=== PATIENT | female | born 1935 | race Caucasian/White ===

== ENCOUNTER 2017-05-11 08:39 | Inpatient (IN) | payer MEDICARE, MEDICAID ==
[2017-05-11] MEDS: SOD CHLORIDE 0.9% 1,000 ML IV ×2 (09:07→10:48)
[2017-05-11] MEDS: ACETAMINOPHEN 650 MG SUPP PR (09:30)
[2017-05-11 10:19] LABS: ADD MAN DIFF? NO
[2017-05-11 10:21] LABS: ABNORMAL IP MESSAGE 1; BASOPHIL # 0.1 10^3/ul (0.0-0.1); BASOPHILS % 0.6 % (0.0-2.0); EOSINOPHILS # 0.5 10^3/ul (0.0-0.5); EOSINOPHILS % 2.7 % (0.0-7.0); HEMATOCRIT 28.7 % (37.0-47.0); HEMOGLOBIN 9.1 g/dl (12.0-16.0); LYMPHOCYTES # 5.7 10^3/ul (0.8-2.9); LYMPHOCYTES % 28.4 % (15.0-51.0); MEAN CORPUSCULAR HEMOGLOBIN 29.1 pg (29.0-33.0); MEAN CORPUSCULAR HGB CONC 31.7 g/dl (32.0-37.0); MEAN CORPUSCULAR VOLUME 91.7 fl (82.0-101.0); MEAN PLATELET VOLUME 10.9 fl (7.4-10.4); MONOCYTE # 1.5 10^3/ul (0.3-0.9); MONOCYTES % 7.6 % (0.0-11.0); PLATELET COUNT 209 10^3/UL (140-415); RED BLOOD COUNT 3.13 10^6/ul (4.20-5.40); RED CELL DISTRIBUTION WIDTH 14.5 % (11.5-14.5)
[2017-05-11 10:28] LABS: POSITIVE DIFF @See below
[2017-05-11 10:31] LABS: ADD UMIC YES; UR ASCORBIC ACID 40 mg/dL (NEGATIVE); UR BILIRUBIN (Dip) NEGATIVE (NEGATIVE); UR BLOOD (Dip) NEGATIVE (NEGATIVE); UR CLARITY CLEAR (CLEAR); UR COLOR YELLOW (YELLOW); UR GLUCOSE (Dip) 1+ mg/dL (NEGATIVE); UR KETONES (Dip) NEGATIVE (NEGATIVE); UR LEUKOCYTE ESTERASE (Dip) TRACE Leu/ul (NEGATIVE); UR NITRITE (Dip) NEGATIVE (NEGATIVE); UR RBC 2 /HPF (0-5); UR SPECIFIC GRAVITY (Dip) 1.015 (1.003-1.030); UR TOTAL PROTEIN (Dip) 1+ mg/dl (NEGATIVE); UR UROBILINOGEN (Dip) NEGATIVE (NEGATIVE); UR WBC 4 /HPF (0-5)
[2017-05-11 10:44] LABS: ALANINE AMINOTRANSFERASE 36 IU/L (13-69); ALBUMIN 3.2 g/dl (3.3-4.9); ALKALINE PHOSPHATASE 106 IU/L (42-121); ANION GAP 14 (8-16); ASPARTATE AMINO TRANSFERASE 41 IU/L (15-46); BILIRUBIN,INDIRECT 0.1 mg/dl (0-1.1); BILIRUBIN,TOTAL 0.1 mg/dl (0.2-1.3); BLOOD UREA NITROGEN 43 mg/dl (7-20); CARBON DIOXIDE 32 mmol/L (21-31); CHLORIDE 106 mmol/L (97-110); CREATININE 0.62 mg/dl (0.44-1.00); GLUCOSE 278 mg/dl (70-220); POTASSIUM 4.8 mmol/L (3.5-5.1); SODIUM 147 mmol/L (135-144); TOTAL PROTEIN 7.2 g/dl (6.1-8.1)
[2017-05-11 10:46] LABS: INR 1.24; PROTIME 15.8 Sec (11.9-14.9); PT RATIO 1.2
[2017-05-11 10:48] LABS: LACTIC ACID 1.3 mmol/L (0.5-2.0)
[2017-05-11] MEDS: VANCOMYCIN 1 GM (PMX) 250 ML IVPB (10:48)
[2017-05-11 10:51] LABS: PARTIAL THROMBOPLASTIN TIME 28.9 Sec (25.0-35.0)
[2017-05-11] MEDS ORDERED: ONDANSETRON 4 MG INJ IV ×2 (11:30→12:00)
[2017-05-11] MEDS ORDERED: ACETAMINOPHEN 325 MG TAB PO (11:30)
[2017-05-11] MEDS: SOD CHLORIDE 0.45% 1,000 ML IV ×2 (11:57→16:02)
[2017-05-11] MEDS ORDERED: ZOLPIDEM 5 MG TAB PO (12:00)
[2017-05-11] MEDS ORDERED: NACL 0.9% 3 ML SYG IV (12:00)
[2017-05-11] MEDS ORDERED: MAGNESIUM HYDROXIDE 30ML CUP PEG (12:30)
[2017-05-11] MEDS: AZTREONAM 1 GM/NS (PMX) 50 ML IVPB (13:00)
[2017-05-11 13:12] LABS: LACTIC ACID 1.6 mmol/L (0.5-2.0)
[2017-05-11] MEDS ORDERED: GLUCOSE GEL 15 GRAM TUBE BUCCAL (13:30)
[2017-05-11] MEDS ORDERED: GLUCAGON 1 MG INJ IM (13:30)
[2017-05-11] MEDS ORDERED: GLUCOSE GEL 15 GRAM TUBE PO ×2 (13:30)
[2017-05-11] MEDS ORDERED: VANCOMYCIN IV PER PHARMACY XX (13:30)
[2017-05-11] MEDS ORDERED: DEXTROSE 50% 50 ML SYRINGE IV ×2 (13:30)
[2017-05-11] MEDS: TIGECYCLINE 100 MG in DEXTROSE 5% 100 ML IVPB ×2 (14:00→15:45)
[2017-05-11] MEDS: AMLODIPINE 5 MG TAB PEG (16:00)
[2017-05-11 16:19] LABS: LACTIC ACID 1.4 mmol/L (0.5-2.0)
[2017-05-11] MEDS: CLOTRIMAZOLE 1% 30 GM CR TOP (17:24)
[2017-05-11] MEDS: INSULIN ASPART [NOVOLOG] 3 ML PEN SC (18:02)
[2017-05-11] MEDS: MONTELUKAST 10 MG TAB PEG (21:09)
[2017-05-11] MEDS: BUSPIRONE 5 MG TAB GTB (21:09)
[2017-05-11] MEDS: APIXABAN 5 MG TABLET GTB (21:10)
[2017-05-11] MEDS: L ACIDOPHIL/B LACTIS/B LONGUM CAPSULE PEG (21:10)
[2017-05-11] MEDS ORDERED: TIGECYCLINE 50 MG in DEXTROSE 5% 100 ML IVPB (23:00)
[2017-05-11] MEDS: METHADONE 10 MG TAB PEG (23:54)
[2017-05-12] MEDS: INSULIN ASPART [NOVOLOG] 3 ML PEN SC ×4 (01:30→17:37)
[2017-05-12] MEDS: TIGECYCLINE 50 MG in DEXTROSE 5% 100 ML IVPB ×2 (01:40→08:45)
[2017-05-12] MEDS: ACCU-CHEK XX (02:00)
[2017-05-12] MEDS: SOD CHLORIDE 0.45% 1,000 ML IV ×3 (05:58→20:28)
[2017-05-12 06:12] LABS: ABNORMAL IP MESSAGE 1; HEMATOCRIT 28.2 % (37.0-47.0); HEMOGLOBIN 8.9 g/dl (12.0-16.0); MEAN CORPUSCULAR HEMOGLOBIN 28.7 pg (29.0-33.0); MEAN CORPUSCULAR HGB CONC 31.6 g/dl (32.0-37.0); MEAN PLATELET VOLUME 10.5 fl (7.4-10.4); PLATELET COUNT 221 10^3/UL (140-415); RED CELL DISTRIBUTION WIDTH 14.2 % (11.5-14.5)
[2017-05-12 06:12] LABS: WHITE BLOOD COUNT 18.2 10^3/ul (4.8-10.8)
[2017-05-12 06:22] LABS: ADD MAN DIFF? YES; POSITIVE DIFF @See below
[2017-05-12] MEDS ORDERED: PENDING SANTYL ORDER FOR WOUND CARE XX (06:30)
[2017-05-12 06:36] LABS: ALANINE AMINOTRANSFERASE 36 IU/L (13-69); ALBUMIN 2.8 g/dl (3.3-4.9); ALKALINE PHOSPHATASE 89 IU/L (42-121); ANION GAP 12 (8-16); ASPARTATE AMINO TRANSFERASE 37 IU/L (15-46); BILIRUBIN,INDIRECT 0.3 mg/dl (0-1.1); BILIRUBIN,TOTAL 0.3 mg/dl (0.2-1.3); BLOOD UREA NITROGEN 32 mg/dl (7-20); CALCIUM 8.6 mg/dl (8.4-10.2); CARBON DIOXIDE 28 mmol/L (21-31); CHLORIDE 109 mmol/L (97-110); CREATININE 0.51 mg/dl (0.44-1.00); GLUCOSE 212 mg/dl (70-220); POTASSIUM 3.9 mmol/L (3.5-5.1); SODIUM 145 mmol/L (135-144); TOTAL PROTEIN 6.8 g/dl (6.1-8.1)
[2017-05-12 06:41] LABS: C-REACTIVE PROTEIN 2.7 mg/dl (0.0-0.9)
[2017-05-12 07:16] LABS: ANISOCYTOSIS 1+ (0-0); BAND NEUTROPHILS #M 0.3 10^3/ul (0.0-0.6); BAND NEUTROPHILS % (M) 2 % (0-4); BASOPHIL #M 0.7 10^3/ul (0.0-0.0); BASOPHILS % (M) 4 % (0-2); EOSINOPHILS % (M) 3 % (0-7); GIANT THROMBO% (M) 1 % (0-0); LYMPHOCYTES % (M) 22 % (15-51); METAMYELOCYTES #M 0.1 10^3/ul (0.0-0.0); METAMYELOCYTES %M 1 % (0-0); MICROCYTOSIS 1+ (0-0); PLATELET ESTIMATE NORMAL; POLYCHROMASIA 1+ (0-0); SEG NEUT #M 12.4 10^3/ul (1.7-7.5); SEGMENTED NEUTROPHILS (M) % 68 % (39-77); SMUDGE%M 5 % (0-0)
[2017-05-12 07:23] LABS: HEMOGLOBIN A1C 7.8 % (0-5.9)
[2017-05-12 08:02] LABS: ERYTHROCYTE SEDIMENTATION RATE 108 mm/Hr (0-30)
[2017-05-12] MEDS: FERROUS SULFATE 60 MG/ML 5ML CUP GTB (08:45)
[2017-05-12] MEDS: ACETAMINOPHEN 650MG/20.3ML CUP PEG (08:45)
[2017-05-12] MEDS: L ACIDOPHIL/B LACTIS/B LONGUM CAPSULE PEG ×2 (08:46→20:32)
[2017-05-12] MEDS: MULTIVITAMINS THERAPEUTIC TAB GTB (08:46)
[2017-05-12] MEDS: APIXABAN 5 MG TABLET GTB ×2 (08:46→20:32)
[2017-05-12] MEDS: BUSPIRONE 5 MG TAB GTB ×2 (08:46→20:32)
[2017-05-12] MEDS: ASCORBIC ACID 500 MG TAB PEG (08:46)
[2017-05-12] MEDS: METHADONE 10 MG TAB PEG (08:47)
[2017-05-12] MEDS: LISINOPRIL 10 MG TAB GTB (08:49)
[2017-05-12] MEDS: AMLODIPINE 5 MG TAB PEG (08:49)
[2017-05-12] MEDS: ALBUTEROL 0.083% (NEB) 2.5 MG/3 ML AMP NEB ×2 (09:18→15:50)
[2017-05-12] MEDS: MEROPENEM 1 GM in SOD CHLORIDE 0.9% 100 ML IVPB ×2 (13:01→21:52)
[2017-05-12] MEDS: INSULIN DETEMIR [LEVEMIR] 3ML CART SC ×2 (16:30→17:36)
[2017-05-12] MEDS: NYSTATIN 30 GM POWDER BTL TOP ×2 (17:00→17:38)
[2017-05-12] MEDS: TIGECYCLINE 50 MG in SOD CHLORIDE 0.9% 100 ML IVPB (20:30)
[2017-05-12] MEDS: MONTELUKAST 10 MG TAB PEG (20:32)
[2017-05-12] MEDS ORDERED: INSULIN ASPART [NOVOLOG] 3 ML PEN SC (21:00)
[2017-05-12] MEDS: Insulin NOVOLOG SS MODERATE Algorithm(NPO/TPN/ENTERAL FEEDS) SC (22:01)
[2017-05-13] MEDS: ACCU-CHEK XX (00:59)
[2017-05-13] MEDS: NYSTATIN 30 GM POWDER BTL TOP ×3 (01:42→20:45)
[2017-05-13] MEDS: Insulin NOVOLOG SS MODERATE Algorithm(NPO/TPN/ENTERAL FEEDS) SC ×6 (01:44→21:05)
[2017-05-13] MEDS ORDERED: ACCU-CHEK XX (02:00)
[2017-05-13] MEDS: MEROPENEM 1 GM in SOD CHLORIDE 0.9% 100 ML IVPB ×2 (05:23→14:43)
[2017-05-13] MEDS: SOD CHLORIDE 0.45% 1,000 ML IV ×2 (05:32→11:54)
[2017-05-13] MEDS: HYDROCODONE/APAP (5/325) TAB PO ×3 (05:45→21:56)
[2017-05-13 06:03] LABS: ADD MAN DIFF? NO
[2017-05-13 06:07] LABS: BASOPHIL # 0.1 10^3/ul (0.0-0.1); BASOPHILS % 0.4 % (0.0-2.0); EOSINOPHILS % 6.1 % (0.0-7.0); HEMATOCRIT 27.2 % (37.0-47.0); HEMOGLOBIN 8.7 g/dl (12.0-16.0); LYMPHOCYTES # 4.8 10^3/ul (0.8-2.9); LYMPHOCYTES % 29.4 % (15.0-51.0); MEAN CORPUSCULAR HEMOGLOBIN 28.9 pg (29.0-33.0); MEAN CORPUSCULAR VOLUME 90.4 fl (82.0-101.0); MEAN PLATELET VOLUME 10.2 fl (7.4-10.4); MONOCYTES % 6.2 % (0.0-11.0); NEUTROPHIL # 9.3 10^3/ul (1.6-7.5); NEUTROPHILS % 57.2 % (39.0-77.0); PLATELET COUNT 226 10^3/UL (140-415); RED BLOOD COUNT 3.01 10^6/ul (4.20-5.40); RED CELL DISTRIBUTION WIDTH 14.2 % (11.5-14.5)
[2017-05-13 06:07] LABS: WHITE BLOOD COUNT 16.2 10^3/ul (4.8-10.8)
[2017-05-13 06:55] LABS: ANION GAP 12 (8-16); BLOOD UREA NITROGEN 38 mg/dl (7-20); CALCIUM 8.2 mg/dl (8.4-10.2); CARBON DIOXIDE 27 mmol/L (21-31); CHLORIDE 109 mmol/L (97-110); CREATININE 0.49 mg/dl (0.44-1.00); GLUCOSE 161 mg/dl (70-220); POTASSIUM 3.9 mmol/L (3.5-5.1); SODIUM 144 mmol/L (135-144)
[2017-05-13] MEDS: INSULIN DETEMIR [LEVEMIR] 3ML CART SC (08:25)
[2017-05-13] MEDS: ALBUTEROL 0.083% (NEB) 2.5 MG/3 ML AMP NEB ×3 (09:29→16:53)
[2017-05-13] MEDS: ASCORBIC ACID 500 MG TAB PEG (09:37)
[2017-05-13] MEDS: FERROUS SULFATE 60 MG/ML 5ML CUP GTB (09:37)
[2017-05-13] MEDS: MULTIVITAMINS THERAPEUTIC TAB GTB (09:38)
[2017-05-13] MEDS: AMLODIPINE 5 MG TAB PEG (09:38)
[2017-05-13] MEDS: BUSPIRONE 5 MG TAB GTB ×2 (09:38→20:39)
[2017-05-13] MEDS: APIXABAN 5 MG TABLET GTB ×2 (09:39→20:39)
[2017-05-13] MEDS: LISINOPRIL 10 MG TAB GTB (09:39)
[2017-05-13] MEDS: ZINC SULFATE 220 MG CAP GTB (09:40)
[2017-05-13] MEDS: L ACIDOPHIL/B LACTIS/B LONGUM CAPSULE PEG ×2 (09:42→20:39)
[2017-05-13] MEDS: TIGECYCLINE 50 MG in SOD CHLORIDE 0.9% 100 ML IVPB ×2 (09:48→20:38)
[2017-05-13] MEDS: METHADONE 10 MG TAB PEG (16:46)
[2017-05-13] MEDS: COLLAGENASE 30 GM TUBE TOP (18:00)
[2017-05-13] MEDS: MONTELUKAST 10 MG TAB PEG (20:39)
[2017-05-13] MEDS: MEROPENEM 1 GM/50ML(PMX) 50 ML IVPB (21:57)
[2017-05-14] MEDS: Insulin NOVOLOG SS MODERATE Algorithm(NPO/TPN/ENTERAL FEEDS) SC ×6 (01:17→20:31)
[2017-05-14] MEDS: ACCU-CHEK XX (01:18)
[2017-05-14] MEDS: SOD CHLORIDE 0.45% 1,000 ML IV ×3 (04:06→20:20)
[2017-05-14] MEDS: MEROPENEM 1 GM/50ML(PMX) 50 ML IVPB ×3 (05:34→21:41)
[2017-05-14] MEDS: INSULIN DETEMIR [LEVEMIR] 3ML CART SC (08:22)
[2017-05-14] MEDS: ALBUTEROL 0.083% (NEB) 2.5 MG/3 ML AMP NEB ×3 (09:00→16:34)
[2017-05-14] MEDS: L ACIDOPHIL/B LACTIS/B LONGUM CAPSULE PEG ×2 (09:12→20:20)
[2017-05-14] MEDS: FERROUS SULFATE 60 MG/ML 5ML CUP GTB (09:12)
[2017-05-14] MEDS: APIXABAN 5 MG TABLET GTB ×2 (09:13→20:20)
[2017-05-14] MEDS: AMLODIPINE 5 MG TAB PEG (09:17)
[2017-05-14] MEDS: MULTIVITAMINS THERAPEUTIC TAB GTB (09:17)
[2017-05-14] MEDS: BUSPIRONE 5 MG TAB GTB ×2 (09:18→20:20)
[2017-05-14] MEDS: LISINOPRIL 10 MG TAB GTB (09:19)
[2017-05-14] MEDS: ASCORBIC ACID 500 MG TAB PEG (09:19)
[2017-05-14] MEDS: ZINC SULFATE 220 MG CAP GTB (09:19)
[2017-05-14] MEDS: TIGECYCLINE 50 MG in SOD CHLORIDE 0.9% 100 ML IVPB ×2 (09:20→20:20)
[2017-05-14] MEDS: COLLAGENASE 30 GM TUBE TOP (09:21)
[2017-05-14] MEDS: NYSTATIN 30 GM POWDER BTL TOP ×2 (09:21→20:26)
[2017-05-14] MEDS: METHADONE 10 MG TAB PEG (17:30)
[2017-05-14] MEDS: MONTELUKAST 10 MG TAB PEG (20:20)
[2017-05-15] MEDS: Insulin NOVOLOG SS MODERATE Algorithm(NPO/TPN/ENTERAL FEEDS) SC ×6 (00:38→20:21)
[2017-05-15] MEDS: SOD CHLORIDE 0.45% 1,000 ML IV ×2 (01:45→16:07)
[2017-05-15] MEDS: ACCU-CHEK XX (02:00)
[2017-05-15] MEDS: MEROPENEM 1 GM/50ML(PMX) 50 ML IVPB (05:35)
[2017-05-15] MEDS: HYDROCODONE/APAP (5/325) TAB PO ×2 (05:41→17:25)
[2017-05-15] MEDS ORDERED: TOBRAMYCIN IV PER PHARMACY XX (08:00)
[2017-05-15] MEDS: L ACIDOPHIL/B LACTIS/B LONGUM CAPSULE PEG ×2 (08:21→20:17)
[2017-05-15] MEDS: ASCORBIC ACID 500 MG TAB PEG (08:21)
[2017-05-15] MEDS: LISINOPRIL 10 MG TAB GTB (08:22)
[2017-05-15] MEDS: MULTIVITAMINS THERAPEUTIC TAB GTB (08:22)
[2017-05-15] MEDS: BUSPIRONE 5 MG TAB GTB ×2 (08:22→20:17)
[2017-05-15] MEDS: AMLODIPINE 5 MG TAB PEG (08:22)
[2017-05-15] MEDS: APIXABAN 5 MG TABLET GTB (08:23)
[2017-05-15] MEDS: FERROUS SULFATE 60 MG/ML 5ML CUP GTB (08:23)
[2017-05-15] MEDS: INSULIN DETEMIR [LEVEMIR] 3ML CART SC (08:30)
[2017-05-15] MEDS: ALBUTEROL 0.083% (NEB) 2.5 MG/3 ML AMP NEB ×3 (09:22→17:50)
[2017-05-15] MEDS: TIGECYCLINE 50 MG in SOD CHLORIDE 0.9% 100 ML IVPB ×2 (09:27→20:19)
[2017-05-15] MEDS: RIFAMPIN 300 MG CAP GTB (09:27)
[2017-05-15] MEDS: ZINC SULFATE 220 MG CAP GTB (09:27)
[2017-05-15] MEDS: NYSTATIN 30 GM POWDER BTL TOP ×2 (09:28→20:18)
[2017-05-15] MEDS: COLLAGENASE 30 GM TUBE TOP (09:28)
[2017-05-15] MEDS: TOBRAMYCIN 150 MG in DEXTROSE 5% 100 ML IVPB (10:10)
[2017-05-15] MEDS: MONTELUKAST 10 MG TAB PEG (20:17)
[2017-05-15] MEDS: METHADONE 10 MG TAB PEG (20:23)
[2017-05-16] MEDS: Insulin NOVOLOG SS MODERATE Algorithm(NPO/TPN/ENTERAL FEEDS) SC ×6 (01:00→20:26)
[2017-05-16] MEDS: HYDROCODONE/APAP (5/325) TAB PO ×3 (01:23→18:56)
[2017-05-16] MEDS: ACCU-CHEK XX (01:23)
[2017-05-16 05:42] LABS: ADD MAN DIFF? NO
[2017-05-16 05:51] LABS: BASOPHIL # 0.1 10^3/ul (0.0-0.1); BASOPHILS % 0.8 % (0.0-2.0); EOSINOPHILS # 0.7 10^3/ul (0.0-0.5); EOSINOPHILS % 5.5 % (0.0-7.0); HEMATOCRIT 25.6 % (37.0-47.0); HEMOGLOBIN 8.5 g/dl (12.0-16.0); LYMPHOCYTES # 4.1 10^3/ul (0.8-2.9); LYMPHOCYTES % 30.1 % (15.0-51.0); MEAN CORPUSCULAR HEMOGLOBIN 29.1 pg (29.0-33.0); MEAN CORPUSCULAR HGB CONC 33.2 g/dl (32.0-37.0); MEAN CORPUSCULAR VOLUME 87.7 fl (82.0-101.0); MEAN PLATELET VOLUME 10.6 fl (7.4-10.4); MONOCYTE # 1.1 10^3/ul (0.3-0.9); MONOCYTES % 7.9 % (0.0-11.0); NEUTROPHIL # 7.5 10^3/ul (1.6-7.5); PLATELET COUNT 227 10^3/UL (140-415); RED BLOOD COUNT 2.92 10^6/ul (4.20-5.40); RED CELL DISTRIBUTION WIDTH 14.6 % (11.5-14.5)
[2017-05-16 05:51] LABS: WHITE BLOOD COUNT 13.5 10^3/ul (4.8-10.8)
[2017-05-16] MEDS: SOD CHLORIDE 0.45% 1,000 ML IV ×3 (06:17→22:48)
[2017-05-16 06:29] LABS: ANION GAP 8 (8-16); BLOOD UREA NITROGEN 25 mg/dl (7-20); CALCIUM 8.1 mg/dl (8.4-10.2); CARBON DIOXIDE 26 mmol/L (21-31); CHLORIDE 105 mmol/L (97-110); CREATININE 0.42 mg/dl (0.44-1.00); GLUCOSE 185 mg/dl (70-220); POTASSIUM 4.4 mmol/L (3.5-5.1); SODIUM 135 mmol/L (135-144)
[2017-05-16] MEDS: INSULIN DETEMIR [LEVEMIR] 3ML CART SC ×2 (08:24→20:20)
[2017-05-16] MEDS: FERROUS SULFATE 60 MG/ML 5ML CUP GTB (08:30)
[2017-05-16] MEDS: AMLODIPINE 5 MG TAB PEG (08:30)
[2017-05-16] MEDS: LISINOPRIL 10 MG TAB GTB (08:30)
[2017-05-16] MEDS: ZINC SULFATE 220 MG CAP GTB (08:32)
[2017-05-16] MEDS: L ACIDOPHIL/B LACTIS/B LONGUM CAPSULE PEG ×2 (08:32→20:17)
[2017-05-16] MEDS: RIFAMPIN 300 MG CAP GTB (08:32)
[2017-05-16] MEDS: ASCORBIC ACID 500 MG TAB PEG (08:33)
[2017-05-16] MEDS: MULTIVITAMINS THERAPEUTIC TAB GTB (08:33)
[2017-05-16] MEDS: BUSPIRONE 5 MG TAB GTB ×2 (08:33→20:18)
[2017-05-16] MEDS: NYSTATIN 30 GM POWDER BTL TOP ×2 (08:34→20:27)
[2017-05-16] MEDS: COLLAGENASE 30 GM TUBE TOP (08:34)
[2017-05-16] MEDS: ALBUTEROL 0.083% (NEB) 2.5 MG/3 ML AMP NEB ×3 (08:36→16:33)
[2017-05-16] MEDS: ENOXAPARIN 40 MG/0.4 ML SYG SC (08:43)
[2017-05-16] MEDS: TIGECYCLINE 50 MG in SOD CHLORIDE 0.9% 100 ML IVPB ×2 (08:55→20:18)
[2017-05-16] MEDS: TOBRAMYCIN 150 MG in DEXTROSE 5% 100 ML IVPB (11:23)
[2017-05-16] MEDS ORDERED: EPOETIN ALFA (NESRD) 3,000 UNITS/ML VIAL SC (13:30)
[2017-05-16] MEDS: EPOETIN 10000 UNITS/ML (NON ESRD/NON ONCOLOGY) SC (15:32)
[2017-05-16] MEDS: MONTELUKAST 10 MG TAB PEG (20:18)
[2017-05-16] MEDS: METHADONE 10 MG TAB PEG (22:14)
[2017-05-17] MEDS: Insulin NOVOLOG SS MODERATE Algorithm(NPO/TPN/ENTERAL FEEDS) SC ×6 (00:55→21:00)
[2017-05-17] MEDS: ACCU-CHEK XX (02:00)
[2017-05-17] MEDS: COLLAGENASE 30 GM TUBE TOP ×2 (05:42→09:26)
[2017-05-17 06:15] LABS: ADD MAN DIFF? NO
[2017-05-17 06:20] LABS: BASOPHIL # 0.1 10^3/ul (0.0-0.1); BASOPHILS % 0.6 % (0.0-2.0); EOSINOPHILS # 0.8 10^3/ul (0.0-0.5); EOSINOPHILS % 5.5 % (0.0-7.0); HEMATOCRIT 26.6 % (37.0-47.0); HEMOGLOBIN 8.8 g/dl (12.0-16.0); LYMPHOCYTES # 4.3 10^3/ul (0.8-2.9); LYMPHOCYTES % 30.6 % (15.0-51.0); MEAN CORPUSCULAR HEMOGLOBIN 28.8 pg (29.0-33.0); MEAN CORPUSCULAR HGB CONC 33.1 g/dl (32.0-37.0); MEAN CORPUSCULAR VOLUME 86.9 fl (82.0-101.0); MEAN PLATELET VOLUME 10.3 fl (7.4-10.4); MONOCYTES % 7.3 % (0.0-11.0); NEUTROPHIL # 7.7 10^3/ul (1.6-7.5); NEUTROPHILS % 55.4 % (39.0-77.0); PLATELET COUNT 253 10^3/UL (140-415); RED BLOOD COUNT 3.06 10^6/ul (4.20-5.40); RED CELL DISTRIBUTION WIDTH 14.8 % (11.5-14.5)
[2017-05-17 06:20] LABS: WHITE BLOOD COUNT 13.9 10^3/ul (4.8-10.8)
[2017-05-17 06:55] LABS: ANION GAP 9 (8-16); BLOOD UREA NITROGEN 24 mg/dl (7-20); CALCIUM 8.2 mg/dl (8.4-10.2); CARBON DIOXIDE 28 mmol/L (21-31); CHLORIDE 102 mmol/L (97-110); CREATININE 0.41 mg/dl (0.44-1.00); GLUCOSE 120 mg/dl (70-220); POTASSIUM 4.1 mmol/L (3.5-5.1); SODIUM 135 mmol/L (135-144)
[2017-05-17] MEDS: BUSPIRONE 5 MG TAB GTB ×2 (08:47→21:09)
[2017-05-17] MEDS: RIFAMPIN 300 MG CAP GTB (08:48)
[2017-05-17] MEDS: L ACIDOPHIL/B LACTIS/B LONGUM CAPSULE PEG ×2 (08:49→21:09)
[2017-05-17] MEDS: MULTIVITAMINS THERAPEUTIC TAB GTB (08:49)
[2017-05-17] MEDS: ASCORBIC ACID 500 MG TAB PEG (08:50)
[2017-05-17] MEDS: FERROUS SULFATE 60 MG/ML 5ML CUP GTB (08:51)
[2017-05-17] MEDS: LISINOPRIL 10 MG TAB GTB (08:51)
[2017-05-17] MEDS: TIGECYCLINE 50 MG in SOD CHLORIDE 0.9% 100 ML IVPB ×3 (09:00→21:27)
[2017-05-17] MEDS: ALBUTEROL 0.083% (NEB) 2.5 MG/3 ML AMP NEB ×3 (09:08→16:56)
[2017-05-17] MEDS: INSULIN DETEMIR [LEVEMIR] 3ML CART SC ×2 (09:10→21:17)
[2017-05-17] MEDS: ENOXAPARIN 40 MG/0.4 ML SYG SC (09:10)
[2017-05-17] MEDS: AMLODIPINE 5 MG TAB PEG (09:23)
[2017-05-17] MEDS: ZINC SULFATE 220 MG CAP GTB (09:23)
[2017-05-17] MEDS: NYSTATIN 30 GM POWDER BTL TOP ×2 (09:24→21:10)
[2017-05-17] MEDS: [UNRECOGNIZED DRUG - REMARK] XX (09:26)
[2017-05-17] MEDS: SOD CHLORIDE 0.45% 1,000 ML IV (10:01)
[2017-05-17] MEDS: TOBRAMYCIN 150 MG in DEXTROSE 5% 100 ML IVPB (10:01)
[2017-05-17 11:23] LABS: PROCALCITONIN 0.27 ng/mL (<0.10)
[2017-05-17] MEDS: HYDROCODONE/APAP (5/325) TAB PO ×2 (12:31→18:35)
[2017-05-17] MEDS ORDERED: EPOETIN ALFA (NESRD) 3,000 UNITS/ML VIAL SC (14:00)
[2017-05-17] MEDS: EPOETIN 10000 UNITS/ML (NON ESRD/NON ONCOLOGY) SC (17:13)
[2017-05-17] MEDS: MONTELUKAST 10 MG TAB PEG (21:09)
[2017-05-17] MEDS: METHADONE 10 MG TAB PEG (22:38)
[2017-05-18] MEDS: Insulin NOVOLOG SS MODERATE Algorithm(NPO/TPN/ENTERAL FEEDS) SC ×6 (01:00→21:00)
[2017-05-18] MEDS: ACCU-CHEK XX (01:12)
[2017-05-18] MEDS: SOD CHLORIDE 0.45% 1,000 ML IV ×2 (01:12→16:51)
[2017-05-18 05:38] LABS: ADD MAN DIFF? NO
[2017-05-18 05:47] LABS: WHITE BLOOD COUNT 13.2 10^3/ul (4.8-10.8)
[2017-05-18 05:47] LABS: BASOPHIL # 0.1 10^3/ul (0.0-0.1); BASOPHILS % 0.4 % (0.0-2.0); EOSINOPHILS # 0.7 10^3/ul (0.0-0.5); HEMATOCRIT 24.9 % (37.0-47.0); HEMOGLOBIN 8.4 g/dl (12.0-16.0); LYMPHOCYTES # 4.6 10^3/ul (0.8-2.9); LYMPHOCYTES % 34.5 % (15.0-51.0); MEAN CORPUSCULAR HEMOGLOBIN 29.3 pg (29.0-33.0); MEAN CORPUSCULAR HGB CONC 33.7 g/dl (32.0-37.0); MEAN CORPUSCULAR VOLUME 86.8 fl (82.0-101.0); MEAN PLATELET VOLUME 10.5 fl (7.4-10.4); MONOCYTES % 7.4 % (0.0-11.0); NEUTROPHIL # 6.9 10^3/ul (1.6-7.5); NEUTROPHILS % 51.9 % (39.0-77.0); PLATELET COUNT 224 10^3/UL (140-415); RED BLOOD COUNT 2.87 10^6/ul (4.20-5.40); RED CELL DISTRIBUTION WIDTH 14.7 % (11.5-14.5)
[2017-05-18] MEDS: TIGECYCLINE 50 MG in SOD CHLORIDE 0.9% 100 ML IVPB ×2 (08:36→21:40)
[2017-05-18] MEDS: BUSPIRONE 5 MG TAB GTB ×2 (08:37→21:24)
[2017-05-18] MEDS: RIFAMPIN 300 MG CAP GTB (08:37)
[2017-05-18] MEDS: MULTIVITAMINS THERAPEUTIC TAB GTB (08:38)
[2017-05-18] MEDS: ZINC SULFATE 220 MG CAP GTB (08:38)
[2017-05-18] MEDS: ASCORBIC ACID 500 MG TAB PEG (08:38)
[2017-05-18] MEDS: L ACIDOPHIL/B LACTIS/B LONGUM CAPSULE PEG ×2 (08:38→21:24)
[2017-05-18] MEDS: FERROUS SULFATE 60 MG/ML 5ML CUP GTB (08:39)
[2017-05-18] MEDS: ENOXAPARIN 40 MG/0.4 ML SYG SC (08:41)
[2017-05-18] MEDS: INSULIN DETEMIR [LEVEMIR] 3ML CART SC ×2 (08:42→21:30)
[2017-05-18] MEDS: LISINOPRIL 10 MG TAB GTB (08:43)
[2017-05-18] MEDS: AMLODIPINE 5 MG TAB PEG (08:44)
[2017-05-18] MEDS: COLLAGENASE 30 GM TUBE TOP (08:47)
[2017-05-18] MEDS: NYSTATIN 30 GM POWDER BTL TOP ×2 (08:47→21:25)
[2017-05-18] MEDS: ALBUTEROL 0.083% (NEB) 2.5 MG/3 ML AMP NEB ×3 (08:56→16:59)
[2017-05-18] MEDS: HYDROCODONE/APAP (5/325) TAB PO ×2 (10:30→18:23)
[2017-05-18] MEDS ORDERED: TOBRAMYCIN 120 MG in DEXTROSE 5% 100 ML IVPB (12:00)
[2017-05-18] MEDS: TOBRAMYCIN 120 MG in DEXTROSE 5% 100 ML IVPB (12:25)
[2017-05-18] MEDS: MONTELUKAST 10 MG TAB PEG (21:24)
[2017-05-18] MEDS: METHADONE 10 MG TAB PEG (22:27)
[2017-05-19] MEDS: Insulin NOVOLOG SS MODERATE Algorithm(NPO/TPN/ENTERAL FEEDS) SC ×6 (01:00→21:00)
[2017-05-19] MEDS: ACCU-CHEK XX (01:20)
[2017-05-19 05:59] LABS: ADD MAN DIFF? NO
[2017-05-19 06:09] LABS: WHITE BLOOD COUNT 13.4 10^3/ul (4.8-10.8)
[2017-05-19 06:09] LABS: BASOPHIL # 0.1 10^3/ul (0.0-0.1); BASOPHILS % 0.5 % (0.0-2.0); EOSINOPHILS # 0.6 10^3/ul (0.0-0.5); EOSINOPHILS % 4.1 % (0.0-7.0); HEMATOCRIT 26.3 % (37.0-47.0); HEMOGLOBIN 8.5 g/dl (12.0-16.0); LYMPHOCYTES # 4.2 10^3/ul (0.8-2.9); LYMPHOCYTES % 31.2 % (15.0-51.0); MEAN CORPUSCULAR HEMOGLOBIN 28.7 pg (29.0-33.0); MEAN CORPUSCULAR HGB CONC 32.3 g/dl (32.0-37.0); MEAN CORPUSCULAR VOLUME 88.9 fl (82.0-101.0); MEAN PLATELET VOLUME 10.4 fl (7.4-10.4); MONOCYTES % 7.1 % (0.0-11.0); NEUTROPHIL # 7.5 10^3/ul (1.6-7.5); NEUTROPHILS % 56.1 % (39.0-77.0); PLATELET COUNT 232 10^3/UL (140-415); RED BLOOD COUNT 2.96 10^6/ul (4.20-5.40); RED CELL DISTRIBUTION WIDTH 15.1 % (11.5-14.5)
[2017-05-19 06:49] LABS: ANION GAP 11 (8-16); BLOOD UREA NITROGEN 23 mg/dl (7-20); CALCIUM 8.3 mg/dl (8.4-10.2); CARBON DIOXIDE 27 mmol/L (21-31); CHLORIDE 102 mmol/L (97-110); GLUCOSE 104 mg/dl (70-220); POTASSIUM 4.1 mmol/L (3.5-5.1); SODIUM 136 mmol/L (135-144)
[2017-05-19 06:53] LABS: B-TYPE NATRIURETIC PEPTIDE 642 PG/ML (0-450)
[2017-05-19] MEDS: ALBUTEROL 0.083% (NEB) 2.5 MG/3 ML AMP NEB ×3 (08:10→17:02)
[2017-05-19] MEDS: MULTIVITAMINS THERAPEUTIC TAB GTB (09:10)
[2017-05-19] MEDS: AMLODIPINE 5 MG TAB PEG (09:10)
[2017-05-19] MEDS: RIFAMPIN 300 MG CAP GTB (09:10)
[2017-05-19] MEDS: ZINC SULFATE 220 MG CAP GTB (09:10)
[2017-05-19] MEDS: BUSPIRONE 5 MG TAB GTB ×2 (09:10→21:29)
[2017-05-19] MEDS: ASCORBIC ACID 500 MG TAB PEG (09:10)
[2017-05-19] MEDS: TIGECYCLINE 50 MG in SOD CHLORIDE 0.9% 100 ML IVPB ×2 (09:11→21:30)
[2017-05-19] MEDS: LISINOPRIL 10 MG TAB GTB (09:11)
[2017-05-19] MEDS: FERROUS SULFATE 60 MG/ML 5ML CUP GTB (09:12)
[2017-05-19] MEDS: L ACIDOPHIL/B LACTIS/B LONGUM CAPSULE PEG ×2 (09:17→21:29)
[2017-05-19] MEDS: COLLAGENASE 30 GM TUBE TOP (09:19)
[2017-05-19] MEDS: NYSTATIN 30 GM POWDER BTL TOP ×2 (09:19→21:31)
[2017-05-19] MEDS: INSULIN DETEMIR [LEVEMIR] 3ML CART SC ×2 (09:22→21:37)
[2017-05-19] MEDS: ENOXAPARIN 40 MG/0.4 ML SYG SC (09:22)
[2017-05-19] MEDS: HYDROCODONE/APAP (5/325) TAB PO ×2 (11:33→17:19)
[2017-05-19] MEDS: TOBRAMYCIN 120 MG in DEXTROSE 5% 100 ML IVPB (11:38)
[2017-05-19] MEDS: SOD CHLORIDE 0.45% 1,000 ML IV ×2 (12:35→16:36)
[2017-05-19] MEDS: MONTELUKAST 10 MG TAB PEG (21:29)
[2017-05-19] MEDS: METHADONE 10 MG TAB PEG (22:46)
[2017-05-20] MEDS: Insulin NOVOLOG SS MODERATE Algorithm(NPO/TPN/ENTERAL FEEDS) SC ×6 (01:00→21:00)
[2017-05-20] MEDS: ALBUTEROL 0.083% (NEB) 2.5 MG/3 ML AMP NEB ×3 (07:47→16:24)
[2017-05-20] MEDS: L ACIDOPHIL/B LACTIS/B LONGUM CAPSULE PEG ×2 (09:27→20:42)
[2017-05-20] MEDS: LISINOPRIL 10 MG TAB GTB (09:28)
[2017-05-20] MEDS: AMLODIPINE 5 MG TAB PEG (09:28)
[2017-05-20] MEDS: MULTIVITAMINS THERAPEUTIC TAB GTB (09:29)
[2017-05-20] MEDS: ZINC SULFATE 220 MG CAP GTB (09:29)
[2017-05-20] MEDS: BUSPIRONE 5 MG TAB GTB ×2 (09:29→20:42)
[2017-05-20] MEDS: ASCORBIC ACID 500 MG TAB PEG (09:29)
[2017-05-20] MEDS: RIFAMPIN 300 MG CAP GTB (09:29)
[2017-05-20] MEDS: FERROUS SULFATE 60 MG/ML 5ML CUP GTB (09:30)
[2017-05-20] MEDS: INSULIN DETEMIR [LEVEMIR] 3ML CART SC ×2 (09:33→20:50)
[2017-05-20] MEDS: ENOXAPARIN 40 MG/0.4 ML SYG SC (09:34)
[2017-05-20] MEDS: TIGECYCLINE 50 MG in SOD CHLORIDE 0.9% 100 ML IVPB ×2 (09:42→20:50)
[2017-05-20] MEDS: COLLAGENASE 30 GM TUBE TOP (09:43)
[2017-05-20] MEDS: NYSTATIN 30 GM POWDER BTL TOP ×2 (09:43→20:51)
[2017-05-20] MEDS ORDERED: TOB TROUGH AT XX (11:00)
[2017-05-20] MEDS: HYDROCODONE/APAP (5/325) TAB PO ×2 (12:19→18:30)
[2017-05-20] MEDS ORDERED: [UNRECOGNIZED DRUG - OTHER] XX (13:30)
[2017-05-20] MEDS: SOD CHLORIDE 0.45% 1,000 ML IV (14:32)
[2017-05-20] MEDS: MONTELUKAST 10 MG TAB PEG (20:42)
[2017-05-20] MEDS: METHADONE 10 MG TAB PEG (23:10)
[2017-05-21] MEDS: Insulin NOVOLOG SS MODERATE Algorithm(NPO/TPN/ENTERAL FEEDS) SC ×6 (01:00→21:00)
[2017-05-21 06:14] LABS: ADD MAN DIFF? NO
[2017-05-21 06:24] LABS: BASOPHIL # 0.1 10^3/ul (0.0-0.1); BASOPHILS % 0.6 % (0.0-2.0); EOSINOPHILS # 0.5 10^3/ul (0.0-0.5); EOSINOPHILS % 4.4 % (0.0-7.0); HEMATOCRIT 25.5 % (37.0-47.0); HEMOGLOBIN 8.4 g/dl (12.0-16.0); LYMPHOCYTES % 35.2 % (15.0-51.0); MEAN CORPUSCULAR HEMOGLOBIN 29.1 pg (29.0-33.0); MEAN CORPUSCULAR HGB CONC 32.9 g/dl (32.0-37.0); MEAN CORPUSCULAR VOLUME 88.2 fl (82.0-101.0); MEAN PLATELET VOLUME 10.1 fl (7.4-10.4); MONOCYTE # 0.9 10^3/ul (0.3-0.9); NEUTROPHIL # 5.8 10^3/ul (1.6-7.5); NEUTROPHILS % 50.8 % (39.0-77.0); PLATELET COUNT 207 10^3/UL (140-415); RED BLOOD COUNT 2.89 10^6/ul (4.20-5.40); RED CELL DISTRIBUTION WIDTH 15.3 % (11.5-14.5)
[2017-05-21 06:24] LABS: WHITE BLOOD COUNT 11.5 10^3/ul (4.8-10.8)
[2017-05-21 07:04] LABS: ANION GAP 10 (8-16); BLOOD UREA NITROGEN 20 mg/dl (7-20); CALCIUM 8.3 mg/dl (8.4-10.2); CARBON DIOXIDE 26 mmol/L (21-31); CHLORIDE 105 mmol/L (97-110); CREATININE 0.43 mg/dl (0.44-1.00); GLUCOSE 98 mg/dl (70-220); POTASSIUM 3.8 mmol/L (3.5-5.1); SODIUM 137 mmol/L (135-144)
[2017-05-21] MEDS: ALBUTEROL 0.083% (NEB) 2.5 MG/3 ML AMP NEB ×3 (08:02→17:08)
[2017-05-21] MEDS: FERROUS SULFATE 60 MG/ML 5ML CUP GTB (08:33)
[2017-05-21] MEDS: TIGECYCLINE 50 MG in SOD CHLORIDE 0.9% 100 ML IVPB ×2 (08:33→21:46)
[2017-05-21] MEDS: BUSPIRONE 5 MG TAB GTB ×2 (08:34→21:35)
[2017-05-21] MEDS: RIFAMPIN 300 MG CAP GTB (08:34)
[2017-05-21] MEDS: MULTIVITAMINS THERAPEUTIC TAB GTB (08:35)
[2017-05-21] MEDS: ZINC SULFATE 220 MG CAP GTB (08:35)
[2017-05-21] MEDS: L ACIDOPHIL/B LACTIS/B LONGUM CAPSULE PEG ×2 (08:35→21:35)
[2017-05-21] MEDS: LISINOPRIL 10 MG TAB GTB (08:35)
[2017-05-21] MEDS: ASCORBIC ACID 500 MG TAB PEG (08:36)
[2017-05-21] MEDS: NYSTATIN 30 GM POWDER BTL TOP ×2 (08:36→21:36)
[2017-05-21] MEDS: AMLODIPINE 5 MG TAB PEG (08:36)
[2017-05-21] MEDS: COLLAGENASE 30 GM TUBE TOP (08:37)
[2017-05-21] MEDS: INSULIN DETEMIR [LEVEMIR] 3ML CART SC ×2 (08:41→22:28)
[2017-05-21] MEDS: ENOXAPARIN 40 MG/0.4 ML SYG SC (08:59)
[2017-05-21] MEDS: HYDROCODONE/APAP (5/325) TAB PO ×2 (10:34→17:55)
[2017-05-21] MEDS: SOD CHLORIDE 0.45% 1,000 ML IV (17:54)
[2017-05-21] MEDS ORDERED: INSULIN DETEMIR [LEVEMIR] 3ML CART SC (21:00)
[2017-05-21] MEDS: MONTELUKAST 10 MG TAB PEG (21:35)
[2017-05-21] MEDS: METHADONE 10 MG TAB PEG (22:26)
[2017-05-22] MEDS: Insulin NOVOLOG SS MODERATE Algorithm(NPO/TPN/ENTERAL FEEDS) SC ×6 (01:00→20:34)
[2017-05-22] MEDS: ALBUTEROL 0.083% (NEB) 2.5 MG/3 ML AMP NEB ×3 (08:10→16:38)
[2017-05-22] MEDS: INSULIN DETEMIR [LEVEMIR] 3ML CART SC ×2 (08:24→20:42)
[2017-05-22] MEDS: RIFAMPIN 300 MG CAP GTB (08:35)
[2017-05-22] MEDS: L ACIDOPHIL/B LACTIS/B LONGUM CAPSULE PEG ×2 (08:35→20:34)
[2017-05-22] MEDS: ZINC SULFATE 220 MG CAP GTB (08:36)
[2017-05-22] MEDS: MULTIVITAMINS THERAPEUTIC TAB GTB (08:36)
[2017-05-22] MEDS: BUSPIRONE 5 MG TAB GTB ×2 (08:37→20:33)
[2017-05-22] MEDS: AMLODIPINE 5 MG TAB PEG (08:37)
[2017-05-22] MEDS: LISINOPRIL 10 MG TAB GTB (08:37)
[2017-05-22] MEDS: ASCORBIC ACID 500 MG TAB PEG (08:37)
[2017-05-22] MEDS: HYDROCODONE/APAP (5/325) TAB PO ×2 (08:38→14:02)
[2017-05-22] MEDS: FERROUS SULFATE 60 MG/ML 5ML CUP GTB (08:38)
[2017-05-22] MEDS: NYSTATIN 30 GM POWDER BTL TOP ×2 (08:39→20:34)
[2017-05-22] MEDS: COLLAGENASE 30 GM TUBE TOP (08:39)
[2017-05-22] MEDS: ENOXAPARIN 40 MG/0.4 ML SYG SC (08:56)
[2017-05-22] MEDS: TIGECYCLINE 50 MG in SOD CHLORIDE 0.9% 100 ML IVPB ×2 (09:11→20:35)
[2017-05-22] MEDS: EPOETIN 10000 UNITS/1 ML INJ (ESRD) SC ×2 (16:20→16:21)
[2017-05-22] MEDS: SOD CHLORIDE 0.45% 1,000 ML IV (17:00)
[2017-05-22] MEDS: METHADONE 10 MG TAB PEG (18:54)
[2017-05-22] MEDS: MONTELUKAST 10 MG TAB PEG (20:33)
[2017-05-23] MEDS: Insulin NOVOLOG SS MODERATE Algorithm(NPO/TPN/ENTERAL FEEDS) SC ×6 (01:00→21:00)
[2017-05-23] MEDS: HYDROCODONE/APAP (5/325) TAB PO ×2 (06:06→16:16)
[2017-05-23] MEDS: INSULIN DETEMIR [LEVEMIR] 3ML CART SC ×2 (07:58→21:17)
[2017-05-23] MEDS: ALBUTEROL 0.083% (NEB) 2.5 MG/3 ML AMP NEB ×3 (08:10→17:08)
[2017-05-23] MEDS: TIGECYCLINE 50 MG in SOD CHLORIDE 0.9% 100 ML IVPB ×2 (09:27→20:58)
[2017-05-23] MEDS: FERROUS SULFATE 60 MG/ML 5ML CUP GTB (09:27)
[2017-05-23] MEDS: METHADONE 10 MG TAB PEG (09:27)
[2017-05-23] MEDS: MULTIVITAMINS THERAPEUTIC TAB GTB (09:28)
[2017-05-23] MEDS: RIFAMPIN 300 MG CAP GTB (09:28)
[2017-05-23] MEDS: BUSPIRONE 5 MG TAB GTB ×2 (09:28→20:57)
[2017-05-23] MEDS: LISINOPRIL 10 MG TAB GTB (09:28)
[2017-05-23] MEDS: AMLODIPINE 5 MG TAB PEG (09:28)
[2017-05-23] MEDS: ASCORBIC ACID 500 MG TAB PEG (09:28)
[2017-05-23] MEDS: L ACIDOPHIL/B LACTIS/B LONGUM CAPSULE PEG ×2 (09:28→20:57)
[2017-05-23] MEDS: ZINC SULFATE 220 MG CAP GTB (09:29)
[2017-05-23] MEDS: NYSTATIN 30 GM POWDER BTL TOP ×2 (09:30→21:00)
[2017-05-23] MEDS: COLLAGENASE 30 GM TUBE TOP (09:30)
[2017-05-23] MEDS: ENOXAPARIN 40 MG/0.4 ML SYG SC (09:31)
[2017-05-23] MEDS ORDERED: EPOETIN ALFA (NESRD) 3,000 UNITS/ML VIAL SC (12:00)
[2017-05-23] MEDS: EPOETIN 10000 UNITS/ML (NON ESRD/NON ONCOLOGY) SC (15:33)
[2017-05-23] MEDS: SOD CHLORIDE 0.45% 1,000 ML IV (15:33)
[2017-05-23] MEDS: MONTELUKAST 10 MG TAB PEG (20:57)
[2017-05-24] MEDS: Insulin NOVOLOG SS MODERATE Algorithm(NPO/TPN/ENTERAL FEEDS) SC ×6 (01:00→20:44)
[2017-05-24] MEDS: COLLAGENASE 30 GM TUBE TOP ×2 (03:30→10:19)
[2017-05-24] MEDS: HYDROCODONE/APAP (5/325) TAB PO ×3 (03:34→17:41)
[2017-05-24] MEDS: INSULIN DETEMIR [LEVEMIR] 3ML CART SC ×2 (08:10→20:48)
[2017-05-24] MEDS: ALBUTEROL 0.083% (NEB) 2.5 MG/3 ML AMP NEB ×3 (09:26→16:52)
[2017-05-24] MEDS: TIGECYCLINE 50 MG in SOD CHLORIDE 0.9% 100 ML IVPB ×2 (10:15→20:41)
[2017-05-24] MEDS: MULTIVITAMINS THERAPEUTIC TAB GTB (10:16)
[2017-05-24] MEDS: ZINC SULFATE 220 MG CAP GTB (10:17)
[2017-05-24] MEDS: ASCORBIC ACID 500 MG TAB PEG (10:17)
[2017-05-24] MEDS: AMLODIPINE 5 MG TAB PEG (10:17)
[2017-05-24] MEDS: BUSPIRONE 5 MG TAB GTB ×2 (10:17→20:40)
[2017-05-24] MEDS: LISINOPRIL 10 MG TAB GTB (10:17)
[2017-05-24] MEDS: FERROUS SULFATE 60 MG/ML 5ML CUP GTB (10:18)
[2017-05-24] MEDS: L ACIDOPHIL/B LACTIS/B LONGUM CAPSULE PEG ×2 (10:19→20:40)
[2017-05-24] MEDS: NYSTATIN 30 GM POWDER BTL TOP ×2 (10:19→20:41)
[2017-05-24] MEDS: ENOXAPARIN 40 MG/0.4 ML SYG SC (10:29)
[2017-05-24] MEDS: SOD CHLORIDE 0.45% 1,000 ML IV (15:24)
[2017-05-24] MEDS: MONTELUKAST 10 MG TAB PEG (20:40)
[2017-05-24] MEDS: METHADONE 10 MG TAB PEG (20:40)
[2017-05-25] MEDS: Insulin NOVOLOG SS MODERATE Algorithm(NPO/TPN/ENTERAL FEEDS) SC ×6 (01:00→21:05)
[2017-05-25] MEDS: HYDROCODONE/APAP (5/325) TAB PO ×3 (05:06→18:06)
[2017-05-25 06:26] LABS: ADD MAN DIFF? NO
[2017-05-25 06:43] LABS: BASOPHIL # 0.1 10^3/ul (0.0-0.1); BASOPHILS % 0.6 % (0.0-2.0); EOSINOPHILS # 0.6 10^3/ul (0.0-0.5); EOSINOPHILS % 4.5 % (0.0-7.0); HEMATOCRIT 28.5 % (37.0-47.0); LYMPHOCYTES % 31.8 % (15.0-51.0); MEAN CORPUSCULAR HEMOGLOBIN 28.6 pg (29.0-33.0); MEAN CORPUSCULAR HGB CONC 31.6 g/dl (32.0-37.0); MEAN CORPUSCULAR VOLUME 90.5 fl (82.0-101.0); MEAN PLATELET VOLUME 9.4 fl (7.4-10.4); MONOCYTE # 0.9 10^3/ul (0.3-0.9); MONOCYTES % 6.9 % (0.0-11.0); NEUTROPHIL # 6.9 10^3/ul (1.6-7.5); PLATELET COUNT 174 10^3/UL (140-415); RED BLOOD COUNT 3.15 10^6/ul (4.20-5.40); RED CELL DISTRIBUTION WIDTH 17.5 % (11.5-14.5)
[2017-05-25 06:43] LABS: WHITE BLOOD COUNT 12.6 10^3/ul (4.8-10.8)
[2017-05-25 06:55] LABS: ALANINE AMINOTRANSFERASE 27 IU/L (13-69); ALBUMIN 2.3 g/dl (3.3-4.9); ALBUMIN/GLOBULIN RATIO 0.62; ALKALINE PHOSPHATASE 148 IU/L (42-121); ANION GAP 11 (8-16); ASPARTATE AMINO TRANSFERASE 27 IU/L (15-46); BLOOD UREA NITROGEN 19 mg/dl (7-20); CALCIUM 8.4 mg/dl (8.4-10.2); CARBON DIOXIDE 24 mmol/L (21-31); CHLORIDE 107 mmol/L (97-110); CREATININE 0.42 mg/dl (0.44-1.00); GLUCOSE 94 mg/dl (70-220); POTASSIUM 3.8 mmol/L (3.5-5.1); SODIUM 138 mmol/L (135-144)
[2017-05-25] MEDS: ALBUTEROL 0.083% (NEB) 2.5 MG/3 ML AMP NEB ×3 (07:58→16:54)
[2017-05-25] MEDS: SOD CHLORIDE 0.45% 1,000 ML IV ×2 (08:35→12:50)
[2017-05-25] MEDS: INSULIN DETEMIR [LEVEMIR] 3ML CART SC ×2 (09:56→20:59)
[2017-05-25] MEDS: ENOXAPARIN 40 MG/0.4 ML SYG SC (09:57)
[2017-05-25] MEDS: ASCORBIC ACID 500 MG TAB PEG (09:58)
[2017-05-25] MEDS: FERROUS SULFATE 60 MG/ML 5ML CUP GTB (09:58)
[2017-05-25] MEDS: LISINOPRIL 10 MG TAB GTB (09:59)
[2017-05-25] MEDS: L ACIDOPHIL/B LACTIS/B LONGUM CAPSULE PEG ×2 (09:59→20:57)
[2017-05-25] MEDS: BUSPIRONE 5 MG TAB GTB ×2 (09:59→20:57)
[2017-05-25] MEDS: MULTIVITAMINS THERAPEUTIC TAB GTB (09:59)
[2017-05-25] MEDS: AMLODIPINE 5 MG TAB PEG (09:59)
[2017-05-25] MEDS: ZINC SULFATE 220 MG CAP GTB (09:59)
[2017-05-25] MEDS: COLLAGENASE 30 GM TUBE TOP (10:01)
[2017-05-25] MEDS: NYSTATIN 30 GM POWDER BTL TOP ×2 (10:01→21:05)
[2017-05-25] MEDS: MINOCYCLINE 100 MG CAP GTB (20:56)
[2017-05-25] MEDS: MONTELUKAST 10 MG TAB PEG (20:57)
[2017-05-25] MEDS: METHADONE 10 MG TAB PEG (20:57)
[2017-05-26] MEDS: Insulin NOVOLOG SS MODERATE Algorithm(NPO/TPN/ENTERAL FEEDS) SC ×5 (01:41→17:55)
[2017-05-26] MEDS: ALBUTEROL 0.083% (NEB) 2.5 MG/3 ML AMP NEB ×3 (07:31→17:20)
[2017-05-26] MEDS: INSULIN DETEMIR [LEVEMIR] 3ML CART SC ×2 (08:22→20:45)
[2017-05-26] MEDS: ENOXAPARIN 40 MG/0.4 ML SYG SC (08:23)
[2017-05-26] MEDS: MINOCYCLINE 100 MG CAP GTB ×2 (08:27→20:41)
[2017-05-26] MEDS: FERROUS SULFATE 60 MG/ML 5ML CUP GTB (08:27)
[2017-05-26] MEDS: MULTIVITAMINS THERAPEUTIC TAB GTB (08:28)
[2017-05-26] MEDS: L ACIDOPHIL/B LACTIS/B LONGUM CAPSULE PEG ×2 (08:28→20:41)
[2017-05-26] MEDS: ASCORBIC ACID 500 MG TAB PEG (08:28)
[2017-05-26] MEDS: ZINC SULFATE 220 MG CAP GTB (08:28)
[2017-05-26] MEDS: AMLODIPINE 5 MG TAB PEG (08:29)
[2017-05-26] MEDS: BUSPIRONE 5 MG TAB GTB ×2 (08:29→20:41)
[2017-05-26] MEDS: LISINOPRIL 10 MG TAB GTB (08:30)
[2017-05-26] MEDS: SOD CHLORIDE 0.45% 1,000 ML IV (08:31)
[2017-05-26] MEDS: COLLAGENASE 30 GM TUBE TOP (08:32)
[2017-05-26] MEDS: NYSTATIN 30 GM POWDER BTL TOP ×2 (08:32→20:41)
[2017-05-26] MEDS: HYDROCODONE/APAP (5/325) TAB PO ×2 (08:45→17:32)
[2017-05-26] MEDS: MONTELUKAST 10 MG TAB PEG (20:41)
[2017-05-26] MEDS: INSULIN ASPART [NOVOLOG] 3 ML PEN SC (20:49)
[2017-05-26] MEDS: METHADONE 10 MG TAB PEG (22:33)
[2017-05-27] MEDS: ALBUTEROL 0.083% (NEB) 2.5 MG/3 ML AMP NEB ×3 (08:28→17:00)
[2017-05-27] MEDS: NYSTATIN 30 GM POWDER BTL TOP ×2 (08:48→21:20)
[2017-05-27] MEDS: COLLAGENASE 30 GM TUBE TOP (08:49)
[2017-05-27] MEDS: FERROUS SULFATE 60 MG/ML 5ML CUP GTB (08:49)
[2017-05-27] MEDS: BUSPIRONE 5 MG TAB GTB ×2 (08:50→21:11)
[2017-05-27] MEDS: MULTIVITAMINS THERAPEUTIC TAB GTB (08:50)
[2017-05-27] MEDS: ASCORBIC ACID 500 MG TAB PEG (08:50)
[2017-05-27] MEDS: L ACIDOPHIL/B LACTIS/B LONGUM CAPSULE PEG ×2 (08:50→21:11)
[2017-05-27] MEDS: ENOXAPARIN 40 MG/0.4 ML SYG SC (08:51)
[2017-05-27] MEDS: INSULIN DETEMIR [LEVEMIR] 3ML CART SC ×2 (08:52→21:19)
[2017-05-27] MEDS: INSULIN ASPART [NOVOLOG] 3 ML PEN SC ×4 (08:53→21:19)
[2017-05-27] MEDS: MINOCYCLINE 100 MG CAP GTB ×2 (09:00→21:10)
[2017-05-27] MEDS: AMLODIPINE 5 MG TAB PEG (09:00)
[2017-05-27] MEDS: ZINC SULFATE 220 MG CAP GTB (09:00)
[2017-05-27] MEDS: LISINOPRIL 10 MG TAB GTB (09:00)
[2017-05-27] MEDS: SOD CHLORIDE 0.45% 1,000 ML IV (09:00)
[2017-05-27] MEDS: HYDROCODONE/APAP (5/325) TAB PO ×2 (09:57→17:53)
[2017-05-27] MEDS: ACETAMINOPHEN 650MG/20.3ML CUP PEG (12:35)
[2017-05-27] MEDS: MONTELUKAST 10 MG TAB PEG (21:11)
[2017-05-27] MEDS: METHADONE 10 MG TAB PEG (21:12)
[2017-05-28] MEDS: HYDROCODONE/APAP (5/325) TAB PO ×3 (05:51→17:09)
[2017-05-28] MEDS: ZINC SULFATE 220 MG CAP GTB (08:13)
[2017-05-28] MEDS: L ACIDOPHIL/B LACTIS/B LONGUM CAPSULE PEG ×2 (08:13→20:16)
[2017-05-28] MEDS: MULTIVITAMINS THERAPEUTIC TAB GTB (08:13)
[2017-05-28] MEDS: MINOCYCLINE 100 MG CAP GTB ×2 (08:13→20:16)
[2017-05-28] MEDS: FERROUS SULFATE 60 MG/ML 5ML CUP GTB (08:13)
[2017-05-28] MEDS: AMLODIPINE 5 MG TAB PEG (08:13)
[2017-05-28] MEDS: ASCORBIC ACID 500 MG TAB PEG (08:13)
[2017-05-28] MEDS: LISINOPRIL 10 MG TAB GTB (08:14)
[2017-05-28] MEDS: BUSPIRONE 5 MG TAB GTB ×2 (08:14→20:17)
[2017-05-28] MEDS: SOD CHLORIDE 0.45% 1,000 ML IV (08:14)
[2017-05-28] MEDS: NYSTATIN 30 GM POWDER BTL TOP ×2 (08:15→20:17)
[2017-05-28] MEDS: COLLAGENASE 30 GM TUBE TOP (08:15)
[2017-05-28] MEDS: INSULIN ASPART [NOVOLOG] 3 ML PEN SC ×4 (08:16→21:00)
[2017-05-28] MEDS: INSULIN DETEMIR [LEVEMIR] 3ML CART SC ×2 (08:16→20:20)
[2017-05-28] MEDS: ENOXAPARIN 40 MG/0.4 ML SYG SC (08:17)
[2017-05-28] MEDS: ALBUTEROL 0.083% (NEB) 2.5 MG/3 ML AMP NEB ×3 (09:14→17:26)
[2017-05-28] MEDS: ACETAMINOPHEN 650MG/20.3ML CUP PEG (14:03)
[2017-05-28] MEDS: MONTELUKAST 10 MG TAB PEG (20:16)
[2017-05-28] MEDS: METHADONE 10 MG TAB PEG (20:17)
[2017-05-29] MEDS: INSULIN ASPART [NOVOLOG] 3 ML PEN SC ×4 (08:15→20:27)
[2017-05-29] MEDS: MULTIVITAMINS THERAPEUTIC TAB GTB (08:24)
[2017-05-29] MEDS: LISINOPRIL 10 MG TAB GTB (08:24)
[2017-05-29] MEDS: FERROUS SULFATE 60 MG/ML 5ML CUP GTB (08:24)
[2017-05-29] MEDS: BUSPIRONE 5 MG TAB GTB ×2 (08:24→20:20)
[2017-05-29] MEDS: ZINC SULFATE 220 MG CAP GTB (08:24)
[2017-05-29] MEDS: L ACIDOPHIL/B LACTIS/B LONGUM CAPSULE PEG ×2 (08:24→20:12)
[2017-05-29] MEDS: ASCORBIC ACID 500 MG TAB PEG (08:24)
[2017-05-29] MEDS: MINOCYCLINE 100 MG CAP GTB ×2 (08:24→20:12)
[2017-05-29] MEDS: AMLODIPINE 5 MG TAB PEG (08:25)
[2017-05-29] MEDS: NYSTATIN 30 GM POWDER BTL TOP ×2 (08:25→20:31)
[2017-05-29] MEDS: COLLAGENASE 30 GM TUBE TOP (08:26)
[2017-05-29] MEDS: SOD CHLORIDE 0.45% 1,000 ML IV ×2 (08:35→12:16)
[2017-05-29] MEDS: INSULIN DETEMIR [LEVEMIR] 3ML CART SC ×2 (08:42→20:30)
[2017-05-29] MEDS: ENOXAPARIN 40 MG/0.4 ML SYG SC (08:42)
[2017-05-29] MEDS: ALBUTEROL 0.083% (NEB) 2.5 MG/3 ML AMP NEB ×3 (09:54→17:40)
[2017-05-29] MEDS: HYDROCODONE/APAP (5/325) TAB PO (10:37)
[2017-05-29] MEDS: MONTELUKAST 10 MG TAB PEG (20:12)
[2017-05-29] MEDS: METHADONE 10 MG TAB PEG (20:14)
[2017-05-29] MEDS: LATANOPROST 0.005% 2.5 ML OPH BOTH EYES (20:21)
[2017-05-30 06:08] LABS: ADD MAN DIFF? NO
[2017-05-30 06:13] LABS: BASOPHILS % 0.4 % (0.0-2.0); EOSINOPHILS # 0.6 10^3/ul (0.0-0.5); EOSINOPHILS % 6.2 % (0.0-7.0); HEMATOCRIT 25.8 % (37.0-47.0); HEMOGLOBIN 8.1 g/dl (12.0-16.0); LYMPHOCYTES # 3.4 10^3/ul (0.8-2.9); MEAN CORPUSCULAR HEMOGLOBIN 29.1 pg (29.0-33.0); MEAN CORPUSCULAR HGB CONC 31.4 g/dl (32.0-37.0); MEAN CORPUSCULAR VOLUME 92.8 fl (82.0-101.0); MEAN PLATELET VOLUME 9.2 fl (7.4-10.4); MONOCYTE # 0.8 10^3/ul (0.3-0.9); MONOCYTES % 7.4 % (0.0-11.0); NEUTROPHIL # 5.3 10^3/ul (1.6-7.5); NEUTROPHILS % 52.2 % (39.0-77.0); PLATELET COUNT 208 10^3/UL (140-415); RED BLOOD COUNT 2.78 10^6/ul (4.20-5.40); RED CELL DISTRIBUTION WIDTH 18.1 % (11.5-14.5)
[2017-05-30 06:13] LABS: WHITE BLOOD COUNT 10.2 10^3/ul (4.8-10.8)
[2017-05-30 06:49] LABS: ALANINE AMINOTRANSFERASE 33 IU/L (13-69); ALBUMIN 2.4 g/dl (3.3-4.9); ALKALINE PHOSPHATASE 95 IU/L (42-121); ANION GAP 10 (8-16); ASPARTATE AMINO TRANSFERASE 25 IU/L (15-46); BLOOD UREA NITROGEN 16 mg/dl (7-20); CALCIUM 8.6 mg/dl (8.4-10.2); CARBON DIOXIDE 27 mmol/L (21-31); CHLORIDE 104 mmol/L (97-110); CREATININE 0.47 mg/dl (0.44-1.00); GLUCOSE 148 mg/dl (70-220); SODIUM 137 mmol/L (135-144); TOTAL PROTEIN 5.8 g/dl (6.1-8.1)
[2017-05-30] MEDS: INSULIN DETEMIR [LEVEMIR] 3ML CART SC ×2 (08:18→21:49)
[2017-05-30] MEDS: INSULIN ASPART [NOVOLOG] 3 ML PEN SC ×4 (08:18→21:00)
[2017-05-30] MEDS: SOD CHLORIDE 0.45% 1,000 ML IV (08:35)
[2017-05-30] MEDS: BRIMONIDINE 0.1% 5 ML OPH BOTH EYES (09:33)
[2017-05-30] MEDS: FERROUS SULFATE 60 MG/ML 5ML CUP GTB (09:34)
[2017-05-30] MEDS: ZINC SULFATE 220 MG CAP GTB (09:35)
[2017-05-30] MEDS: BUSPIRONE 5 MG TAB GTB ×2 (09:35→21:42)
[2017-05-30] MEDS: ASCORBIC ACID 500 MG TAB PEG (09:35)
[2017-05-30] MEDS: L ACIDOPHIL/B LACTIS/B LONGUM CAPSULE PEG ×2 (09:35→21:43)
[2017-05-30] MEDS: MULTIVITAMINS THERAPEUTIC TAB GTB (09:35)
[2017-05-30] MEDS: MINOCYCLINE 100 MG CAP GTB ×2 (09:36→21:43)
[2017-05-30] MEDS: AMLODIPINE 5 MG TAB PEG (09:36)
[2017-05-30] MEDS: LISINOPRIL 10 MG TAB GTB (09:36)
[2017-05-30] MEDS: COLLAGENASE 30 GM TUBE TOP (09:37)
[2017-05-30] MEDS: NYSTATIN 30 GM POWDER BTL TOP ×2 (09:37→21:42)
[2017-05-30] MEDS: HYDROCODONE/APAP (5/325) TAB PO ×2 (09:40→21:51)
[2017-05-30] MEDS: ENOXAPARIN 40 MG/0.4 ML SYG SC (09:54)
[2017-05-30] MEDS: ALBUTEROL 0.083% (NEB) 2.5 MG/3 ML AMP NEB ×3 (09:56→17:13)
[2017-05-30] MEDS ORDERED: EPOETIN ALFA (NESRD) 3,000 UNITS/ML VIAL SC (13:00)
[2017-05-30] MEDS: EPOETIN 10000 UNITS/ML (NON ESRD/NON ONCOLOGY) SC (15:00)
[2017-05-30] MEDS: MONTELUKAST 10 MG TAB PEG (21:43)
[2017-05-30] MEDS: LATANOPROST 0.005% 2.5 ML OPH BOTH EYES (21:50)
[2017-05-30 23:17] LABS: IMMEDIATE SPIN CROSSMATCH 1 1
[2017-05-31 06:16] LABS: ADD MAN DIFF? NO
[2017-05-31 06:19] LABS: WHITE BLOOD COUNT 12.2 10^3/ul (4.8-10.8)
[2017-05-31 06:19] LABS: BASOPHIL # 0.1 10^3/ul (0.0-0.1); BASOPHILS % 0.4 % (0.0-2.0); EOSINOPHILS # 0.6 10^3/ul (0.0-0.5); EOSINOPHILS % 5.2 % (0.0-7.0); HEMATOCRIT 23.4 % (37.0-47.0); HEMOGLOBIN 7.7 g/dl (12.0-16.0); LYMPHOCYTES # 3.7 10^3/ul (0.8-2.9); LYMPHOCYTES % 30.4 % (15.0-51.0); MEAN CORPUSCULAR HEMOGLOBIN 29.7 pg (29.0-33.0); MEAN CORPUSCULAR HGB CONC 32.9 g/dl (32.0-37.0); MEAN CORPUSCULAR VOLUME 90.3 fl (82.0-101.0); MEAN PLATELET VOLUME 9.3 fl (7.4-10.4); MONOCYTE # 1.1 10^3/ul (0.3-0.9); MONOCYTES % 9.1 % (0.0-11.0); NEUTROPHIL # 6.6 10^3/ul (1.6-7.5); NEUTROPHILS % 53.7 % (39.0-77.0); PLATELET COUNT 223 10^3/UL (140-415); RED BLOOD COUNT 2.59 10^6/ul (4.20-5.40); RED CELL DISTRIBUTION WIDTH 17.4 % (11.5-14.5)
[2017-05-31] MEDS: SOD CHLORIDE 0.45% 1,000 ML IV ×2 (08:35→10:46)
[2017-05-31] MEDS: INSULIN DETEMIR [LEVEMIR] 3ML CART SC ×2 (08:38→21:10)
[2017-05-31] MEDS: INSULIN ASPART [NOVOLOG] 3 ML PEN SC ×4 (08:38→21:11)
[2017-05-31] MEDS: BUSPIRONE 5 MG TAB GTB ×2 (08:40→21:07)
[2017-05-31] MEDS: BRIMONIDINE 0.1% 5 ML OPH BOTH EYES (08:40)
[2017-05-31] MEDS: ASCORBIC ACID 500 MG TAB PEG (08:42)
[2017-05-31] MEDS: MINOCYCLINE 100 MG CAP GTB ×2 (08:42→21:07)
[2017-05-31] MEDS: LISINOPRIL 10 MG TAB GTB (08:43)
[2017-05-31] MEDS: AMLODIPINE 5 MG TAB PEG (08:43)
[2017-05-31] MEDS: L ACIDOPHIL/B LACTIS/B LONGUM CAPSULE PEG ×2 (08:43→21:07)
[2017-05-31] MEDS: FERROUS SULFATE 60 MG/ML 5ML CUP GTB (08:44)
[2017-05-31] MEDS: MULTIVITAMINS THERAPEUTIC TAB GTB (08:45)
[2017-05-31] MEDS: ZINC SULFATE 220 MG CAP GTB (08:45)
[2017-05-31] MEDS: ENOXAPARIN 40 MG/0.4 ML SYG SC (08:50)
[2017-05-31] MEDS: NYSTATIN 30 GM POWDER BTL TOP ×2 (08:52→21:11)
[2017-05-31] MEDS: COLLAGENASE 30 GM TUBE TOP (08:52)
[2017-05-31] MEDS: ALBUTEROL 0.083% (NEB) 2.5 MG/3 ML AMP NEB ×3 (09:01→17:10)
[2017-05-31] MEDS: HYDROCODONE/APAP (5/325) TAB PO (10:47)
[2017-05-31 16:41] LABS: HEMATOCRIT 33.3 % (37.0-47.0); HEMOGLOBIN 10.8 g/dl (12.0-16.0)
[2017-05-31] MEDS: MONTELUKAST 10 MG TAB PEG (21:07)
[2017-05-31] MEDS: METHADONE 10 MG TAB PEG (21:07)
[2017-05-31] MEDS: LATANOPROST 0.005% 2.5 ML OPH BOTH EYES (22:08)
[2017-06-01 06:23] LABS: ADD MAN DIFF? NO
[2017-06-01 06:35] LABS: WHITE BLOOD COUNT 11.2 10^3/ul (4.8-10.8)
[2017-06-01 06:35] LABS: BASOPHIL # 0.1 10^3/ul (0.0-0.1); BASOPHILS % 0.5 % (0.0-2.0); EOSINOPHILS # 0.6 10^3/ul (0.0-0.5); EOSINOPHILS % 4.9 % (0.0-7.0); HEMATOCRIT 31.3 % (37.0-47.0); HEMOGLOBIN 10.1 g/dl (12.0-16.0); LYMPHOCYTES # 3.3 10^3/ul (0.8-2.9); LYMPHOCYTES % 29.8 % (15.0-51.0); MEAN CORPUSCULAR HEMOGLOBIN 29.2 pg (29.0-33.0); MEAN CORPUSCULAR HGB CONC 32.3 g/dl (32.0-37.0); MEAN CORPUSCULAR VOLUME 90.5 fl (82.0-101.0); MEAN PLATELET VOLUME 9.4 fl (7.4-10.4); MONOCYTES % 8.7 % (0.0-11.0); NEUTROPHIL # 6.1 10^3/ul (1.6-7.5); NEUTROPHILS % 54.7 % (39.0-77.0); PLATELET COUNT 229 10^3/UL (140-415); RED BLOOD COUNT 3.46 10^6/ul (4.20-5.40); RED CELL DISTRIBUTION WIDTH 17.3 % (11.5-14.5)
[2017-06-01] MEDS: INSULIN ASPART [NOVOLOG] 3 ML PEN SC ×4 (07:58→21:04)
[2017-06-01] MEDS: INSULIN DETEMIR [LEVEMIR] 3ML CART SC ×2 (07:59→21:03)
[2017-06-01] MEDS: SOD CHLORIDE 0.45% 1,000 ML IV (08:35)
[2017-06-01] MEDS: ALBUTEROL 0.083% (NEB) 2.5 MG/3 ML AMP NEB ×3 (10:13→16:48)
[2017-06-01] MEDS: AMLODIPINE 5 MG TAB PEG (10:17)
[2017-06-01] MEDS: LISINOPRIL 10 MG TAB GTB (10:17)
[2017-06-01] MEDS: FERROUS SULFATE 60 MG/ML 5ML CUP GTB (10:17)
[2017-06-01] MEDS: L ACIDOPHIL/B LACTIS/B LONGUM CAPSULE PEG ×2 (10:17→21:01)
[2017-06-01] MEDS: BRIMONIDINE 0.1% 5 ML OPH BOTH EYES (10:18)
[2017-06-01] MEDS: BUSPIRONE 5 MG TAB GTB ×2 (10:18→21:01)
[2017-06-01] MEDS: ZINC SULFATE 220 MG CAP GTB (10:18)
[2017-06-01] MEDS: MINOCYCLINE 100 MG CAP GTB ×2 (10:18→21:01)
[2017-06-01] MEDS: MULTIVITAMINS THERAPEUTIC TAB GTB (10:18)
[2017-06-01] MEDS: ASCORBIC ACID 500 MG TAB PEG (10:18)
[2017-06-01] MEDS: COLLAGENASE 30 GM TUBE TOP (10:19)
[2017-06-01] MEDS: NYSTATIN 30 GM POWDER BTL TOP ×2 (10:19→21:04)
[2017-06-01] MEDS: ENOXAPARIN 40 MG/0.4 ML SYG SC (10:30)
[2017-06-01] MEDS: HYDROCODONE/APAP (5/325) TAB PO (14:03)
[2017-06-01] MEDS: METHADONE 10 MG TAB PEG (21:00)
[2017-06-01] MEDS: MONTELUKAST 10 MG TAB PEG (21:00)
[2017-06-01] MEDS: LATANOPROST 0.005% 2.5 ML OPH BOTH EYES (21:01)
[2017-06-02] MEDS: INSULIN ASPART [NOVOLOG] 3 ML PEN SC ×4 (08:34→20:40)
[2017-06-02] MEDS: INSULIN DETEMIR [LEVEMIR] 3ML CART SC ×2 (08:34→20:39)
[2017-06-02] MEDS: SOD CHLORIDE 0.45% 1,000 ML IV (08:35)
[2017-06-02] MEDS: BRIMONIDINE 0.1% 5 ML OPH BOTH EYES (09:00)
[2017-06-02] MEDS: COLLAGENASE 30 GM TUBE TOP (09:00)
[2017-06-02] MEDS: ALBUTEROL 0.083% (NEB) 2.5 MG/3 ML AMP NEB ×3 (09:49→17:07)
[2017-06-02] MEDS: FERROUS SULFATE 60 MG/ML 5ML CUP GTB (10:25)
[2017-06-02] MEDS: ASCORBIC ACID 500 MG TAB PEG (10:26)
[2017-06-02] MEDS: L ACIDOPHIL/B LACTIS/B LONGUM CAPSULE PEG ×2 (10:26→20:37)
[2017-06-02] MEDS: BUSPIRONE 5 MG TAB GTB ×2 (10:26→20:37)
[2017-06-02] MEDS: MINOCYCLINE 100 MG CAP GTB ×2 (10:26→20:37)
[2017-06-02] MEDS: AMLODIPINE 5 MG TAB PEG (10:28)
[2017-06-02] MEDS: MULTIVITAMINS THERAPEUTIC TAB GTB (10:29)
[2017-06-02] MEDS: LISINOPRIL 10 MG TAB GTB (10:30)
[2017-06-02] MEDS: ZINC SULFATE 220 MG CAP GTB (10:30)
[2017-06-02] MEDS: METHADONE 10 MG TAB PO (10:31)
[2017-06-02] MEDS: NYSTATIN 30 GM POWDER BTL TOP ×2 (10:38→20:38)
[2017-06-02] MEDS: ENOXAPARIN 40 MG/0.4 ML SYG SC (10:40)
[2017-06-02] MEDS: MONTELUKAST 10 MG TAB PEG (20:36)
[2017-06-02] MEDS: METHADONE 10 MG TAB PEG (20:37)
[2017-06-02] MEDS: LATANOPROST 0.005% 2.5 ML OPH BOTH EYES (20:38)
[2017-06-03] MEDS: ALBUTEROL 0.083% (NEB) 2.5 MG/3 ML AMP NEB ×2 (08:39→15:08)
[2017-06-03] MEDS: COLLAGENASE 30 GM TUBE TOP (09:00)
[2017-06-03] MEDS: FERROUS SULFATE 60 MG/ML 5ML CUP GTB (09:58)
[2017-06-03] MEDS: MINOCYCLINE 100 MG CAP GTB (09:58)
[2017-06-03] MEDS: L ACIDOPHIL/B LACTIS/B LONGUM CAPSULE PEG (09:58)
[2017-06-03] MEDS: MULTIVITAMINS THERAPEUTIC TAB GTB (09:58)
[2017-06-03] MEDS: LISINOPRIL 10 MG TAB GTB (09:59)
[2017-06-03] MEDS: AMLODIPINE 5 MG TAB PEG (09:59)
[2017-06-03] MEDS: ZINC SULFATE 220 MG CAP GTB (09:59)
[2017-06-03] MEDS: ASCORBIC ACID 500 MG TAB PEG (09:59)
[2017-06-03] MEDS: BUSPIRONE 5 MG TAB GTB (09:59)
[2017-06-03] MEDS: BRIMONIDINE 0.1% 5 ML OPH BOTH EYES (10:00)
[2017-06-03] MEDS: INSULIN ASPART [NOVOLOG] 3 ML PEN SC ×2 (10:03→14:51)
[2017-06-03] MEDS: INSULIN DETEMIR [LEVEMIR] 3ML CART SC (10:04)
[2017-06-03] MEDS: ENOXAPARIN 40 MG/0.4 ML SYG SC (10:05)
[2017-06-03] MEDS: NYSTATIN 30 GM POWDER BTL TOP (10:06)
[2017-06-03] MEDS: METHADONE 10 MG TAB PO (10:13)
[2017-06-03] MEDS: HYDROCODONE/APAP (5/325) TAB PO (14:49)
== END 2017-06-03 16:00 | DRG 871 ==
LOC: MS2 05-13 15:04 → E/R 08:39 → MS2 11:12
PROC: 30233N1 Transfusion of Nonautologous Red Blood Cells into Peripheral Vein, Percutaneous Approach (ICD-10-PCS; principal; 2017-05-30)
DX: A41.9 Sepsis, unspecified organism (principal); L89.154 Pressure ulcer of sacral region, stage 4; G93.40 Encephalopathy, unspecified; L89.213 Pressure ulcer of right hip, stage 3; N39.0 Urinary tract infection, site not specified; E11.22 Type 2 diabetes mellitus with diabetic chronic kidney disease; D63.8 Anemia in other chronic diseases classified elsewhere; I82.622 Acute embolism and thrombosis of deep veins of left upper extremity; M46.28 Osteomyelitis of vertebra, sacral and sacrococcygeal region; R50.9 Fever, unspecified; G89.29 Other chronic pain; I12.9 Hypertensive chronic kidney disease with stage 1 through stage 4 chronic kidney disease, or unspecified chronic kidney disease; N18.2 Chronic kidney disease, stage 2 (mild); E66.9 Obesity, unspecified; Z68.30 Body mass index [BMI] 30.0-30.9, adult; B96.5 Pseudomonas (aeruginosa) (mallei) (pseudomallei) as the cause of diseases classified elsewhere; B95.62 Methicillin resistant Staphylococcus aureus infection as the cause of diseases classified elsewhere; Z16.24 Resistance to multiple antibiotics; Z89.511 Acquired absence of right leg below knee; Z79.02 Long term (current) use of antithrombotics/antiplatelets; Z79.891 Long term (current) use of opiate analgesic; Z79.4 Long term (current) use of insulin
CPT/HCPCS: 36415; 36430; 71045; 80048; 80053; 80200; 81001; 82962; 83036; 83605; 83880; 83921; 84145; 84484; 85014; 85018; 85025; 85610; 85651; 85730; 86140; 86850; 86900; 86901; 86920; 87040; 87070; 87081; 87086; 93005; 93971; 94640; 94664; 96372; 96374; 96375; 96376; 99291-25

== ENCOUNTER 2017-08-03 08:07 | Inpatient (IN) | payer MEDICARE, MEDICAID ==
[2017-08-03] MEDS: ONDANSETRON 4 MG INJ IV (10:00)
[2017-08-03] MEDS: SOD CHLORIDE 0.9% 1,000 ML IV ×2 (10:00→16:28)
[2017-08-03 10:25] LABS: ADD MAN DIFF? NO
[2017-08-03 10:27] LABS: BASOPHIL # 0.1 10^3/ul (0.0-0.1); BASOPHILS % 0.4 % (0.0-2.0); EOSINOPHILS # 0.5 10^3/ul (0.0-0.5); EOSINOPHILS % 2.4 % (0.0-7.0); HEMATOCRIT 27.1 % (37.0-47.0); HEMOGLOBIN 8.7 g/dl (12.0-16.0); LYMPHOCYTES # 3.4 10^3/ul (0.8-2.9); LYMPHOCYTES % 16.7 % (15.0-51.0); MEAN CORPUSCULAR HEMOGLOBIN 28.1 pg (29.0-33.0); MEAN CORPUSCULAR HGB CONC 32.1 g/dl (32.0-37.0); MEAN CORPUSCULAR VOLUME 87.4 fl (82.0-101.0); MEAN PLATELET VOLUME 9.3 fl (7.4-10.4); MONOCYTE # 1.5 10^3/ul (0.3-0.9); MONOCYTES % 7.3 % (0.0-11.0); NEUTROPHIL # 14.4 10^3/ul (1.6-7.5); PLATELET COUNT 377 10^3/UL (140-415); RED CELL DISTRIBUTION WIDTH 14.7 % (11.5-14.5)
[2017-08-03 10:27] LABS: WHITE BLOOD COUNT 20.2 10^3/ul (4.8-10.8)
[2017-08-03 10:43] LABS: ANION GAP 14 (8-16); BLOOD UREA NITROGEN 42 mg/dl (7-20); CALCIUM 10.2 mg/dl (8.4-10.2); CARBON DIOXIDE 30 mmol/L (21-31); CHLORIDE 102 mmol/L (97-110); CREATININE 0.63 mg/dl (0.44-1.00); GLUCOSE 172 mg/dl (70-220); POTASSIUM 5.1 mmol/L (3.5-5.1); SODIUM 141 mmol/L (135-144)
[2017-08-03 10:47] LABS: INR 1.75; PROTIME 20.8 Sec (11.9-14.9); PT RATIO 1.6
[2017-08-03 10:48] LABS: PARTIAL THROMBOPLASTIN TIME 37.7 Sec (25.0-35.0)
[2017-08-03] MEDS: morphine 4 MG/ML VIAL IV (10:59)
[2017-08-03] MEDS: metroNIDAZOLE 500 MG/NS (PMX) 100 ML IVPB (11:00)
[2017-08-03] MEDS ORDERED: ONDANSETRON 4 MG TAB PEG (11:00)
[2017-08-03] MEDS ORDERED: HYDROCODONE/APAP (5/325) TAB PEG (11:00)
[2017-08-03] MEDS ORDERED: ACETAMINOPHEN 325 MG TAB PO ×2 (11:00)
[2017-08-03] MEDS ORDERED: NACL 0.9% 3 ML SYG IV (11:00)
[2017-08-03] MEDS: SODIUM CHLORIDE 0.9% 1L BAG IV* (11:00)
[2017-08-03] MEDS ORDERED: DOCUSATE SODIUM 100 MG CAP PO (11:00)
[2017-08-03] MEDS ORDERED: BISACODYL 10 MG SUPP PR (11:00)
[2017-08-03] MEDS ORDERED: ALBUTEROL 0.083% (NEB) 2.5 MG/3 ML AMP NEB (11:00)
[2017-08-03] MEDS ORDERED: ONDANSETRON 4 MG INJ IV (11:00)
[2017-08-03] MEDS ORDERED: TOBRAMYCIN IV PER PHARMACY XX (12:00)
[2017-08-03] MEDS: CIPROFLOXACIN 400MG/D5W 200 ML IVPB (12:00)
[2017-08-03] MEDS: METHADONE 10 MG TAB PEG (12:00)
[2017-08-03] MEDS ORDERED: VANCOMYCIN IV PER PHARMACY XX (12:00)
[2017-08-03] MEDS ORDERED: ZOLPIDEM 5 MG TAB PO (13:00)
[2017-08-03] MEDS: INSULIN ASPART [NOVOLOG] 3 ML PEN SC ×3 (13:39→21:13)
[2017-08-03] MEDS ORDERED: TOBRAMYCIN IVPB (15:00)
[2017-08-03] MEDS ORDERED: DEXTROSE 5% IVPB (15:00)
[2017-08-03 15:24] LABS: LACTIC ACID 1.3 mmol/L (0.5-2.0)
[2017-08-03] MEDS: VANCOMYCIN 1 GM 250 ML IVPB (16:28)
[2017-08-03 16:55] LABS: ADD UMIC YES; UR ASCORBIC ACID 20 mg/dL (NEGATIVE); UR BACTERIA MODERATE /HPF (NONE SEEN); UR BILIRUBIN (Dip) NEGATIVE (NEGATIVE); UR BLOOD (Dip) 2+ mg/dL (NEGATIVE); UR CLARITY CLOUDY (CLEAR); UR COLOR YELLOW (YELLOW); UR GLUCOSE (Dip) NEGATIVE (NEGATIVE); UR KETONES (Dip) NEGATIVE (NEGATIVE); UR LEUKOCYTE ESTERASE (Dip) 3+ Leu/ul (NEGATIVE); UR NITRITE (Dip) NEGATIVE (NEGATIVE); UR RBC 73 /HPF (0-5); UR SPECIFIC GRAVITY (Dip) 1.013 (1.003-1.030); UR SQUAMOUS EPITHELIAL CELL FEW /HPF (FEW); UR TOTAL PROTEIN (Dip) 1+ mg/dl (NEGATIVE); UR UROBILINOGEN (Dip) NEGATIVE (NEGATIVE); UR WBC 18 /HPF (0-5)
[2017-08-03] MEDS ORDERED: PENDING SANTYL ORDER FOR WOUND CARE XX (19:00)
[2017-08-03] MEDS: morphine 2 MG INJ IV (20:18)
[2017-08-03] MEDS: MONTELUKAST 10 MG TAB PEG (20:23)
[2017-08-03] MEDS: BUSPIRONE 5 MG TAB GTB (20:23)
[2017-08-03] MEDS: INSULIN DETEMIR [LEVEMIR] 3ML CART SC (21:00)
[2017-08-03] MEDS: SOD CHLORIDE 0.9% IVPB (21:51)
[2017-08-03] MEDS: TOBRAMYCIN IVPB (21:51)
[2017-08-04] MEDS: SOD CHLORIDE 0.9% 1,000 ML IV ×4 (02:00→13:07)
[2017-08-04 07:09] LABS: ADD MAN DIFF? NO
[2017-08-04 07:13] LABS: BASOPHIL # 0.1 10^3/ul (0.0-0.1); BASOPHILS % 0.3 % (0.0-2.0); EOSINOPHILS # 0.4 10^3/ul (0.0-0.5); EOSINOPHILS % 2.4 % (0.0-7.0); HEMATOCRIT 25.8 % (37.0-47.0); HEMOGLOBIN 7.9 g/dl (12.0-16.0); LYMPHOCYTES # 2.7 10^3/ul (0.8-2.9); LYMPHOCYTES % 14.9 % (15.0-51.0); MEAN CORPUSCULAR HEMOGLOBIN 27.2 pg (29.0-33.0); MEAN CORPUSCULAR HGB CONC 30.6 g/dl (32.0-37.0); MEAN PLATELET VOLUME 9.7 fl (7.4-10.4); MONOCYTE # 1.3 10^3/ul (0.3-0.9); MONOCYTES % 7.3 % (0.0-11.0); NEUTROPHILS % 72.3 % (39.0-77.0); PLATELET COUNT 381 10^3/UL (140-415); RED CELL DISTRIBUTION WIDTH 14.8 % (11.5-14.5)
[2017-08-04 07:51] LABS: ALANINE AMINOTRANSFERASE 21 IU/L (13-69); ALBUMIN 3.1 g/dl (3.3-4.9); ALBUMIN/GLOBULIN RATIO 0.75; ALKALINE PHOSPHATASE 149 IU/L (42-121); ANION GAP 13 (8-16); ASPARTATE AMINO TRANSFERASE 22 IU/L (15-46); BILIRUBIN,INDIRECT 0.1 mg/dl (0-1.1); BILIRUBIN,TOTAL 0.1 mg/dl (0.2-1.3); BLOOD UREA NITROGEN 25 mg/dl (7-20); CALCIUM 9.3 mg/dl (8.4-10.2); CARBON DIOXIDE 25 mmol/L (21-31); CHLORIDE 110 mmol/L (97-110); GLUCOSE 215 mg/dl (70-220); POTASSIUM 4.2 mmol/L (3.5-5.1); SODIUM 144 mmol/L (135-144); TOTAL PROTEIN 7.2 g/dl (6.1-8.1)
[2017-08-04] MEDS: INSULIN ASPART [NOVOLOG] 3 ML PEN SC ×4 (08:37→21:32)
[2017-08-04] MEDS: INSULIN DETEMIR [LEVEMIR] 3ML CART SC ×2 (08:39→21:31)
[2017-08-04] MEDS: AMLODIPINE 5 MG TAB PEG (08:39)
[2017-08-04] MEDS: ASCORBIC ACID 500 MG TAB PEG (08:39)
[2017-08-04] MEDS: FERROUS SULFATE 220 MG/5 ML ML PO (08:39)
[2017-08-04] MEDS: LISINOPRIL 10 MG TAB GTB (08:39)
[2017-08-04] MEDS: BUSPIRONE 5 MG TAB GTB ×2 (08:39→21:42)
[2017-08-04] MEDS: ENOXAPARIN 40 MG/0.4 ML SYG SC (08:40)
[2017-08-04] MEDS ORDERED: ENOXAPARIN 40 MG/0.4 ML SYG SC (09:00)
[2017-08-04 09:15] LABS: ERYTHROCYTE SEDIMENTATION RATE 135 mm/Hr (0-30)
[2017-08-04] MEDS ORDERED: EPOETIN 10000 UNITS/ML (NON ESRD/NON ONCOLOGY) SC (14:30)
[2017-08-04] MEDS: CLOTRIMAZOLE 1% 30 GM CR TOP ×2 (15:00→22:06)
[2017-08-04] MEDS: TRIAMCINOLONE ACET 0.025% 15 GM CR TOP ×2 (15:00→22:05)
[2017-08-04] MEDS: PROPOFOL 20 ML (15:50)
[2017-08-04] MEDS: VANCOMYCIN 1 GM 250 ML IVPB (15:57)
[2017-08-04] MEDS: EPOETIN 10000 UNITS/ML (NON ESRD/NON ONCOLOGY) SC (15:58)
[2017-08-04] MEDS: morphine 2 MG INJ IV (16:00)
[2017-08-04] MEDS: METHADONE 10 MG TAB PEG (21:43)
[2017-08-04] MEDS: MONTELUKAST 10 MG TAB PEG (21:43)
[2017-08-04] MEDS: TOBRAMYCIN IVPB (22:05)
[2017-08-04] MEDS: SOD CHLORIDE 0.9% IVPB (22:05)
[2017-08-05] MEDS: SOD CHLORIDE 0.9% 1,000 ML IV ×2 (04:55→15:58)
[2017-08-05 05:39] LABS: ADD MAN DIFF? NO
[2017-08-05 05:44] LABS: BASOPHIL # 0.1 10^3/ul (0.0-0.1); BASOPHILS % 0.5 % (0.0-2.0); EOSINOPHILS # 0.4 10^3/ul (0.0-0.5); EOSINOPHILS % 2.6 % (0.0-7.0); HEMATOCRIT 25.7 % (37.0-47.0); HEMOGLOBIN 7.9 g/dl (12.0-16.0); LYMPHOCYTES # 2.5 10^3/ul (0.8-2.9); LYMPHOCYTES % 15.8 % (15.0-51.0); MEAN CORPUSCULAR HEMOGLOBIN 27.1 pg (29.0-33.0); MEAN CORPUSCULAR HGB CONC 30.7 g/dl (32.0-37.0); MEAN CORPUSCULAR VOLUME 88.3 fl (82.0-101.0); MEAN PLATELET VOLUME 9.6 fl (7.4-10.4); MONOCYTE # 1.2 10^3/ul (0.3-0.9); MONOCYTES % 7.7 % (0.0-11.0); NEUTROPHIL # 11.4 10^3/ul (1.6-7.5); NEUTROPHILS % 71.8 % (39.0-77.0); PLATELET COUNT 359 10^3/UL (140-415); RED BLOOD COUNT 2.91 10^6/ul (4.20-5.40); RED CELL DISTRIBUTION WIDTH 14.7 % (11.5-14.5)
[2017-08-05 05:44] LABS: WHITE BLOOD COUNT 15.9 10^3/ul (4.8-10.8)
[2017-08-05 06:19] LABS: ANION GAP 10 (8-16); BLOOD UREA NITROGEN 16 mg/dl (7-20); CALCIUM 8.9 mg/dl (8.4-10.2); CARBON DIOXIDE 23 mmol/L (21-31); CHLORIDE 114 mmol/L (97-110); CREATININE 0.51 mg/dl (0.44-1.00); GLUCOSE 207 mg/dl (70-220); SODIUM 143 mmol/L (135-144)
[2017-08-05] MEDS: INSULIN ASPART [NOVOLOG] 3 ML PEN SC ×3 (08:23→17:39)
[2017-08-05] MEDS: FERROUS SULFATE 220 MG/5 ML ML PO (09:00)
[2017-08-05] MEDS: CLOTRIMAZOLE 1% 30 GM CR TOP ×2 (09:25→20:58)
[2017-08-05] MEDS: TRIAMCINOLONE ACET 0.025% 15 GM CR TOP ×2 (09:25→20:59)
[2017-08-05] MEDS: AMLODIPINE 5 MG TAB PEG (09:27)
[2017-08-05] MEDS: BUSPIRONE 5 MG TAB GTB ×2 (09:27→20:57)
[2017-08-05] MEDS: ASCORBIC ACID 500 MG TAB PEG (09:27)
[2017-08-05] MEDS: LISINOPRIL 10 MG TAB GTB (09:28)
[2017-08-05] MEDS: INSULIN DETEMIR [LEVEMIR] 3ML CART SC ×2 (09:29→21:08)
[2017-08-05] MEDS: ENOXAPARIN 40 MG/0.4 ML SYG SC (09:30)
[2017-08-05] MEDS: FERROUS SULFATE 60 MG/ML 5ML CUP PO (09:52)
[2017-08-05] MEDS: VANCOMYCIN 1 GM 250 ML IVPB (14:06)
[2017-08-05] MEDS: METHADONE 10 MG TAB PEG (19:15)
[2017-08-05] MEDS ORDERED: GLUCOSE GEL 15 GRAM TUBE PO ×2 (20:30)
[2017-08-05] MEDS ORDERED: GLUCAGON 1 MG INJ IM (20:30)
[2017-08-05] MEDS ORDERED: GLUCOSE GEL 15 GRAM TUBE BUCCAL (20:30)
[2017-08-05] MEDS ORDERED: DEXTROSE 50% 50 ML SYRINGE IV ×2 (20:30)
[2017-08-05] MEDS: MONTELUKAST 10 MG TAB PEG (20:57)
[2017-08-05] MEDS: SOD CHLORIDE 0.9% IVPB (21:00)
[2017-08-05] MEDS ORDERED: [UNRECOGNIZED DRUG - REMARK] XX (21:00)
[2017-08-05] MEDS: TOBRAMYCIN IVPB (21:00)
[2017-08-05] MEDS: morphine 2 MG INJ IV (21:20)
[2017-08-06] MEDS: morphine 2 MG INJ IV (04:27)
[2017-08-06] MEDS: INSULIN ASPART [NOVOLOG] 3 ML PEN SC ×5 (05:15→23:55)
[2017-08-06 05:28] LABS: ADD MAN DIFF? NO
[2017-08-06 05:34] LABS: WHITE BLOOD COUNT 17.6 10^3/ul (4.8-10.8)
[2017-08-06 05:34] LABS: BASOPHIL # 0.1 10^3/ul (0.0-0.1); BASOPHILS % 0.5 % (0.0-2.0); EOSINOPHILS # 0.6 10^3/ul (0.0-0.5); EOSINOPHILS % 3.2 % (0.0-7.0); HEMATOCRIT 27.3 % (37.0-47.0); HEMOGLOBIN 8.5 g/dl (12.0-16.0); LYMPHOCYTES # 2.8 10^3/ul (0.8-2.9); LYMPHOCYTES % 15.7 % (15.0-51.0); MEAN CORPUSCULAR HEMOGLOBIN 27.5 pg (29.0-33.0); MEAN CORPUSCULAR HGB CONC 31.1 g/dl (32.0-37.0); MEAN CORPUSCULAR VOLUME 88.3 fl (82.0-101.0); MEAN PLATELET VOLUME 9.2 fl (7.4-10.4); MONOCYTE # 1.3 10^3/ul (0.3-0.9); MONOCYTES % 7.6 % (0.0-11.0); NEUTROPHIL # 12.6 10^3/ul (1.6-7.5); NEUTROPHILS % 71.6 % (39.0-77.0); PLATELET COUNT 385 10^3/UL (140-415); RED BLOOD COUNT 3.09 10^6/ul (4.20-5.40); RED CELL DISTRIBUTION WIDTH 14.8 % (11.5-14.5)
[2017-08-06 05:59] LABS: ANION GAP 12 (8-16); BLOOD UREA NITROGEN 12 mg/dl (7-20); CALCIUM 9.1 mg/dl (8.4-10.2); CARBON DIOXIDE 25 mmol/L (21-31); CHLORIDE 113 mmol/L (97-110); CREATININE 0.42 mg/dl (0.44-1.00); GLUCOSE 116 mg/dl (70-220); POTASSIUM 3.5 mmol/L (3.5-5.1); SODIUM 146 mmol/L (135-144)
[2017-08-06] MEDS: LISINOPRIL 10 MG TAB GTB (09:41)
[2017-08-06] MEDS: BUSPIRONE 5 MG TAB GTB ×2 (09:41→20:41)
[2017-08-06] MEDS: AMLODIPINE 5 MG TAB PEG (09:41)
[2017-08-06] MEDS: ASCORBIC ACID 500 MG TAB PEG (09:41)
[2017-08-06] MEDS: FERROUS SULFATE 60 MG/ML 5ML CUP PO (09:42)
[2017-08-06] MEDS: ENOXAPARIN 40 MG/0.4 ML SYG SC (09:43)
[2017-08-06] MEDS: INSULIN DETEMIR [LEVEMIR] 3ML CART SC ×2 (09:43→20:42)
[2017-08-06] MEDS: TRIAMCINOLONE ACET 0.025% 15 GM CR TOP ×2 (09:44→20:44)
[2017-08-06] MEDS: CLOTRIMAZOLE 1% 30 GM CR TOP ×2 (09:44→20:44)
[2017-08-06] MEDS: SOD CHLORIDE 0.9% 1,000 ML IV ×2 (10:58→14:10)
[2017-08-06 13:55] LABS: VANCOMYCIN,TROUGH 6.8 ug/ml (10.0-20.0)
[2017-08-06] MEDS: VANCOMYCIN 1 GM 250 ML IVPB ×2 (14:10→23:51)
[2017-08-06] MEDS: MONTELUKAST 10 MG TAB PEG (20:41)
[2017-08-06] MEDS: TOBRAMYCIN IVPB (20:43)
[2017-08-06] MEDS: SOD CHLORIDE 0.9% IVPB (20:43)
[2017-08-06] MEDS: METHADONE 10 MG TAB PEG (20:51)
[2017-08-07] MEDS: INSULIN ASPART [NOVOLOG] 3 ML PEN SC ×4 (05:27→23:38)
[2017-08-07 05:31] LABS: ADD MAN DIFF? NO
[2017-08-07 05:35] LABS: BASOPHILS % 0.3 % (0.0-2.0); EOSINOPHILS # 0.5 10^3/ul (0.0-0.5); EOSINOPHILS % 3.3 % (0.0-7.0); HEMATOCRIT 23.4 % (37.0-47.0); HEMOGLOBIN 7.6 g/dl (12.0-16.0); LYMPHOCYTES # 2.5 10^3/ul (0.8-2.9); LYMPHOCYTES % 15.9 % (15.0-51.0); MEAN CORPUSCULAR HEMOGLOBIN 27.9 pg (29.0-33.0); MEAN CORPUSCULAR HGB CONC 32.5 g/dl (32.0-37.0); MEAN PLATELET VOLUME 9.5 fl (7.4-10.4); MONOCYTE # 1.2 10^3/ul (0.3-0.9); MONOCYTES % 7.3 % (0.0-11.0); NEUTROPHIL # 11.5 10^3/ul (1.6-7.5); NEUTROPHILS % 71.8 % (39.0-77.0); PLATELET COUNT 346 10^3/UL (140-415); RED BLOOD COUNT 2.72 10^6/ul (4.20-5.40); RED CELL DISTRIBUTION WIDTH 15.1 % (11.5-14.5)
[2017-08-07 05:35] LABS: WHITE BLOOD COUNT 15.9 10^3/ul (4.8-10.8)
[2017-08-07 05:56] LABS: ANION GAP 11 (8-16); BLOOD UREA NITROGEN 16 mg/dl (7-20); CALCIUM 8.7 mg/dl (8.4-10.2); CARBON DIOXIDE 26 mmol/L (21-31); CHLORIDE 112 mmol/L (97-110); CREATININE 0.45 mg/dl (0.44-1.00); GLUCOSE 143 mg/dl (70-220); POTASSIUM 3.6 mmol/L (3.5-5.1); SODIUM 145 mmol/L (135-144)
[2017-08-07] MEDS: SOD CHLORIDE 0.9% 1,000 ML IV ×2 (06:14→20:39)
[2017-08-07] MEDS: ENOXAPARIN 40 MG/0.4 ML SYG SC ×2 (09:00→17:18)
[2017-08-07] MEDS: CEFEPIME 1GM/50 ML (PMX) 50 ML IVPB ×3 (09:14→21:46)
[2017-08-07] MEDS: CLOTRIMAZOLE 1% 30 GM CR TOP ×2 (09:15→20:39)
[2017-08-07] MEDS: AMLODIPINE 5 MG TAB PEG (09:15)
[2017-08-07] MEDS: TRIAMCINOLONE ACET 0.025% 15 GM CR TOP ×2 (09:15→20:39)
[2017-08-07] MEDS: FERROUS SULFATE 60 MG/ML 5ML CUP PO (09:15)
[2017-08-07] MEDS: ASCORBIC ACID 500 MG TAB PEG (09:16)
[2017-08-07] MEDS: BUSPIRONE 5 MG TAB GTB ×2 (09:16→20:36)
[2017-08-07] MEDS: LISINOPRIL 10 MG TAB GTB (09:16)
[2017-08-07] MEDS: INSULIN DETEMIR [LEVEMIR] 3ML CART SC ×2 (09:18→20:38)
[2017-08-07] MEDS: METHADONE 10 MG TAB PEG (12:15)
[2017-08-07] MEDS: VANCOMYCIN 1 GM 250 ML IVPB ×2 (12:16→23:33)
[2017-08-07 15:12] LABS: HEMATOCRIT 24.8 % (37.0-47.0); HEMOGLOBIN 7.9 g/dl (12.0-16.0)
[2017-08-07] MEDS ORDERED: morphine LIQ (10 MG/5 ML) CUP GTB (16:30)
[2017-08-07] MEDS: MONTELUKAST 10 MG TAB PEG (20:36)
[2017-08-07 21:03] LABS: IMMEDIATE SPIN CROSSMATCH 1 1
[2017-08-07] MEDS: HYDROCODONE/APAP (5/325) TAB PEG (21:46)
[2017-08-08] MEDS: METHADONE 10 MG TAB PEG ×2 (00:43→15:48)
[2017-08-08] MEDS: CEFEPIME 1GM/50 ML (PMX) 50 ML IVPB ×4 (05:32→21:41)
[2017-08-08] MEDS: INSULIN ASPART [NOVOLOG] 3 ML PEN SC ×3 (05:33→17:30)
[2017-08-08 06:02] LABS: ADD MAN DIFF? NO
[2017-08-08 06:10] LABS: BASOPHIL # 0.1 10^3/ul (0.0-0.1); BASOPHILS % 0.5 % (0.0-2.0); EOSINOPHILS # 0.6 10^3/ul (0.0-0.5); EOSINOPHILS % 4.1 % (0.0-7.0); HEMATOCRIT 28.2 % (37.0-47.0); HEMOGLOBIN 9.2 g/dl (12.0-16.0); LYMPHOCYTES # 2.7 10^3/ul (0.8-2.9); LYMPHOCYTES % 18.4 % (15.0-51.0); MEAN CORPUSCULAR HGB CONC 32.6 g/dl (32.0-37.0); MEAN PLATELET VOLUME 9.5 fl (7.4-10.4); MONOCYTE # 1.1 10^3/ul (0.3-0.9); MONOCYTES % 7.4 % (0.0-11.0); NEUTROPHIL # 9.9 10^3/ul (1.6-7.5); NEUTROPHILS % 68.4 % (39.0-77.0); PLATELET COUNT 321 10^3/UL (140-415); RED BLOOD COUNT 3.28 10^6/ul (4.20-5.40); RED CELL DISTRIBUTION WIDTH 14.6 % (11.5-14.5)
[2017-08-08 06:10] LABS: WHITE BLOOD COUNT 14.6 10^3/ul (4.8-10.8)
[2017-08-08] MEDS: ASCORBIC ACID 500 MG TAB PEG (08:41)
[2017-08-08] MEDS: AMLODIPINE 5 MG TAB PEG (08:41)
[2017-08-08] MEDS: FERROUS SULFATE 60 MG/ML 5ML CUP PO (08:41)
[2017-08-08] MEDS: LISINOPRIL 10 MG TAB GTB (08:41)
[2017-08-08] MEDS: BUSPIRONE 5 MG TAB GTB ×2 (08:41→21:41)
[2017-08-08] MEDS: ENOXAPARIN 40 MG/0.4 ML SYG SC (08:43)
[2017-08-08] MEDS: INSULIN DETEMIR [LEVEMIR] 3ML CART SC ×2 (08:44→20:55)
[2017-08-08] MEDS: CLOTRIMAZOLE 1% 30 GM CR TOP ×2 (08:48→20:52)
[2017-08-08] MEDS: TRIAMCINOLONE ACET 0.025% 15 GM CR TOP ×2 (08:48→20:52)
[2017-08-08] MEDS: VANCOMYCIN 1 GM 250 ML IVPB (11:49)
[2017-08-08 11:52] LABS: VANCOMYCIN,TROUGH 14.8 ug/ml (10.0-20.0)
[2017-08-08] MEDS: ONDANSETRON 4 MG TAB PO (16:39)
[2017-08-08] MEDS: MONTELUKAST 10 MG TAB PEG (20:52)
[2017-08-08] MEDS: SOD CHLORIDE 0.9% 1,000 ML IV (21:41)
[2017-08-09] MEDS: VANCOMYCIN 1 GM 250 ML IVPB ×2 (00:05→12:07)
[2017-08-09] MEDS: METHADONE 10 MG TAB PEG (05:15)
[2017-08-09] MEDS: CEFEPIME 1GM/50 ML (PMX) 50 ML IVPB (05:22)
[2017-08-09] MEDS: INSULIN ASPART [NOVOLOG] 3 ML PEN SC ×3 (05:25→12:11)
[2017-08-09] MEDS: ENOXAPARIN 40 MG/0.4 ML SYG SC (09:09)
[2017-08-09] MEDS: INSULIN DETEMIR [LEVEMIR] 3ML CART SC (09:09)
[2017-08-09] MEDS: FERROUS SULFATE 60 MG/ML 5ML CUP PO (09:11)
[2017-08-09] MEDS: ASCORBIC ACID 500 MG TAB PEG (09:12)
[2017-08-09] MEDS: BUSPIRONE 5 MG TAB GTB (09:12)
[2017-08-09] MEDS: LISINOPRIL 10 MG TAB GTB (09:12)
[2017-08-09] MEDS: AMLODIPINE 5 MG TAB PEG (09:12)
[2017-08-09] MEDS: TRIAMCINOLONE ACET 0.025% 15 GM CR TOP (09:13)
[2017-08-09] MEDS: CLOTRIMAZOLE 1% 30 GM CR TOP (09:13)
== END 2017-08-09 14:15 | DRG 393 ==
LOC: E/R 08:07 → PP2 10:37
PROC: 0DH63UZ Insertion of Feeding Device into Stomach, Percutaneous Approach (ICD-10-PCS; principal; 2017-08-04 13:25)
PROC: 30233N1 Transfusion of Nonautologous Red Blood Cells into Peripheral Vein, Percutaneous Approach (ICD-10-PCS; 2017-08-04 13:25)
DX: K94.23 Gastrostomy malfunction (principal); L89.313 Pressure ulcer of right buttock, stage 3; L89.223 Pressure ulcer of left hip, stage 3; G93.40 Encephalopathy, unspecified; N39.0 Urinary tract infection, site not specified; D63.8 Anemia in other chronic diseases classified elsewhere; Z89.511 Acquired absence of right leg below knee; N30.90 Cystitis, unspecified without hematuria; Z79.891 Long term (current) use of opiate analgesic; G89.29 Other chronic pain; E11.9 Type 2 diabetes mellitus without complications; R13.10 Dysphagia, unspecified; B95.62 Methicillin resistant Staphylococcus aureus infection as the cause of diseases classified elsewhere; B96.1 Klebsiella pneumoniae [K. pneumoniae] as the cause of diseases classified elsewhere; B96.4 Proteus (mirabilis) (morganii) as the cause of diseases classified elsewhere; B95.4 Other streptococcus as the cause of diseases classified elsewhere; Z16.12 Extended spectrum beta lactamase (ESBL) resistance
CPT/HCPCS: 36415; 36430; 43760; 71045; 74176; 80048; 80053; 80200; 80202; 81001; 82962; 83605; 85014; 85018; 85025; 85610; 85651; 85730; 86850; 86900; 86901; 86920; 87040; 87070; 87081; 87086; 96361; 96374; 96375; 99285-25

== ENCOUNTER 2017-09-01 14:34 | Inpatient (IN) | payer MEDICARE, MEDICAID ==
[2017-09-01] MEDS: SODIUM CHLORIDE 0.9% 1L BAG IV* (15:35)
[2017-09-01] MEDS: CEFEPIME 2GM/50 ML (PMX) 50 ML IVPB (15:38)
[2017-09-01] MEDS: ACETAMINOPHEN 650MG/20.3ML CUP NGT (15:38)
[2017-09-01 15:45] LABS: WHITE BLOOD COUNT 27.7 10^3/ul (4.8-10.8)
[2017-09-01 15:45] LABS: ABNORMAL IP MESSAGE 1; HEMATOCRIT 32.2 % (37.0-47.0); HEMOGLOBIN 9.8 g/dl (12.0-16.0); MEAN CORPUSCULAR HEMOGLOBIN 27.1 pg (29.0-33.0); MEAN CORPUSCULAR HGB CONC 30.4 g/dl (32.0-37.0); MEAN CORPUSCULAR VOLUME 89.2 fl (82.0-101.0); PLATELET COUNT 406 10^3/UL (140-415); RED BLOOD COUNT 3.61 10^6/ul (4.20-5.40); RED CELL DISTRIBUTION WIDTH 15.4 % (11.5-14.5)
[2017-09-01 15:57] LABS: POSITIVE DIFF @See below
[2017-09-01 15:58] LABS: ADD MAN DIFF? YES
[2017-09-01 16:06] LABS: INR 1.84; PROTIME 21.7 Sec (11.9-14.9); PT RATIO 1.7
[2017-09-01 16:08] LABS: PARTIAL THROMBOPLASTIN TIME 32.9 Sec (25.0-35.0)
[2017-09-01] MEDS: VANCOMYCIN 1 GM (PMX) 250 ML IVPB (16:13)
[2017-09-01 16:18] LABS: ALANINE AMINOTRANSFERASE 57 IU/L (13-69); ALBUMIN 3.5 g/dl (3.3-4.9); ALBUMIN/GLOBULIN RATIO 0.74; ALKALINE PHOSPHATASE 163 IU/L (42-121); ANION GAP 16 (8-16); ASPARTATE AMINO TRANSFERASE 88 IU/L (15-46); BILIRUBIN,INDIRECT 0.2 mg/dl (0-1.1); BILIRUBIN,TOTAL 0.2 mg/dl (0.2-1.3); BLOOD UREA NITROGEN 68 mg/dl (7-20); CALCIUM 9.8 mg/dl (8.4-10.2); CARBON DIOXIDE 29 mmol/L (21-31); CHLORIDE 114 mmol/L (97-110); CREATININE 0.84 mg/dl (0.44-1.00); GLUCOSE 298 mg/dl (70-220); POTASSIUM 4.2 mmol/L (3.5-5.1); SODIUM 155 mmol/L (135-144); TOTAL PROTEIN 8.2 g/dl (6.1-8.1)
[2017-09-01 16:21] LABS: LACTIC ACID 2.9 mmol/L (0.5-2.0)
[2017-09-01 16:26] LABS: ADD UMIC YES; UR ASCORBIC ACID 40 mg/dL (NEGATIVE); UR BACTERIA FEW /HPF (NONE SEEN); UR BILIRUBIN (Dip) NEGATIVE (NEGATIVE); UR BLOOD (Dip) NEGATIVE (NEGATIVE); UR BUDDING YEAST MODERATE /HPF (NONE SEEN); UR CLARITY CLOUDY (CLEAR); UR COLOR YELLOW (YELLOW); UR GLUCOSE (Dip) 2+ mg/dL (NEGATIVE); UR KETONES (Dip) NEGATIVE (NEGATIVE); UR LEUKOCYTE ESTERASE (Dip) 3+ Leu/ul (NEGATIVE); UR MUCUS FEW /HPF (NONE SEEN); UR NITRITE (Dip) NEGATIVE (NEGATIVE); UR RBC 4 /HPF (0-5); UR SPECIFIC GRAVITY (Dip) 1.014 (1.003-1.030); UR TOTAL PROTEIN (Dip) 2+ mg/dl (NEGATIVE); UR UROBILINOGEN (Dip) NEGATIVE (NEGATIVE); UR WBC > 182 /HPF (0-5)
[2017-09-01 16:28] LABS: TROPONIN-I 0.015 ng/ml (0.00-0.12)
[2017-09-01 17:21] LABS: ANISOCYTOSIS 1+ (0-0); BAND NEUTROPHILS #M 0.5 10^3/ul (0.0-0.6); BAND NEUTROPHILS % (M) 2 % (0-4); EOSINOPHILS % (M) 1 % (0-7); ERYTHROBLAST% (NRBC) (M) 10 % (0-0); LYMPHOCYTES #M 7.2 10^3/ul (0.8-2.9); LYMPHOCYTES % (M) 26 % (15-51); MICROCYTOSIS 1+ (0-0); PLATELET ESTIMATE NORMAL; POLYCHROMASIA 3+ (0-0); SEG NEUT #M 19.8 10^3/ul (1.6-7.5); SEGMENTED NEUTROPHILS (M) % 71 % (39-77)
[2017-09-01] MEDS ORDERED: ACETAMINOPHEN 325 MG TAB PO (18:30)
[2017-09-01] MEDS ORDERED: ONDANSETRON 4 MG INJ IV (18:30)
[2017-09-01] MEDS ORDERED: DOCUSATE SODIUM 100 MG CAP PO (20:30)
[2017-09-01] MEDS ORDERED: ONDANSETRON 4 MG TAB PEG (20:30)
[2017-09-01] MEDS ORDERED: MULTIVITAMINS THERAPEUTIC TAB GTB (20:30)
[2017-09-01] MEDS ORDERED: MAGNESIUM HYDROXIDE 30ML CUP PEG (20:30)
[2017-09-01] MEDS ORDERED: ALBUTEROL 0.083% (NEB) 2.5 MG/3 ML AMP NEB (20:30)
[2017-09-01] MEDS ORDERED: BISACODYL 10 MG SUPP PR (20:30)
[2017-09-01] MEDS ORDERED: GLUCAGON 1 MG INJ IM (21:00)
[2017-09-01] MEDS ORDERED: DEXTROSE 50% 50 ML SYRINGE IV (21:00)
[2017-09-01] MEDS ORDERED: GLUCOSE GEL 15 GRAM TUBE BUCCAL (21:00)
[2017-09-01] MEDS ORDERED: GLUCOSE GEL 15 GRAM TUBE PO ×2 (21:00)
[2017-09-01] MEDS ORDERED: VANCOMYCIN IV PER PHARMACY XX (21:00)
[2017-09-01 21:13] LABS: LACTIC ACID 1.5 mmol/L (0.5-2.0)
[2017-09-01] MEDS: CALCIUM CARBONATE 500 MG CHEW TAB PO (22:24)
[2017-09-01] MEDS: METHADONE 10 MG TAB PEG (22:24)
[2017-09-01] MEDS: MONTELUKAST 10 MG TAB PEG (22:28)
[2017-09-01] MEDS: LISINOPRIL 10 MG TAB GTB (22:29)
[2017-09-01] MEDS: AMLODIPINE 5 MG TAB PEG (22:29)
[2017-09-01] MEDS: BUSPIRONE 5 MG TAB GTB (22:30)
[2017-09-01] MEDS: INSULIN DETEMIR [LEVEMIR] 3ML CART SC (22:31)
[2017-09-01] MEDS: INSULIN ASPART [NOVOLOG] 3 ML PEN SC (22:33)
[2017-09-01] MEDS: CEFEPIME 1GM/50 ML (PMX) 50 ML IVPB (23:18)
[2017-09-01] MEDS: MULTIVITAMINS 30 ML CUP GTB (23:24)
[2017-09-02] MEDS: INSULIN ASPART [NOVOLOG] 3 ML PEN SC ×6 (01:11→21:06)
[2017-09-02] MEDS: CEFEPIME 1GM/50 ML (PMX) 50 ML IVPB ×2 (05:21→21:03)
[2017-09-02 06:28] LABS: HEMATOCRIT 31.7 % (37.0-47.0); HEMOGLOBIN 9.4 g/dl (12.0-16.0); MEAN CORPUSCULAR HEMOGLOBIN 26.7 pg (29.0-33.0); MEAN CORPUSCULAR HGB CONC 29.7 g/dl (32.0-37.0); MEAN CORPUSCULAR VOLUME 90.1 fl (82.0-101.0); MEAN PLATELET VOLUME 10.5 fl (7.4-10.4); PLATELET COUNT 370 10^3/UL (140-415); RED BLOOD COUNT 3.52 10^6/ul (4.20-5.40); RED CELL DISTRIBUTION WIDTH 15.4 % (11.5-14.5)
[2017-09-02 06:28] LABS: WHITE BLOOD COUNT 23.5 10^3/ul (4.8-10.8)
[2017-09-02 06:38] LABS: ADD MAN DIFF? YES; POSITIVE DIFF @See below
[2017-09-02 06:54] LABS: HEMOGLOBIN A1C 7.7 % (0-5.9)
[2017-09-02 06:59] LABS: ALANINE AMINOTRANSFERASE 50 IU/L (13-69); ALBUMIN 2.9 g/dl (3.3-4.9); ALBUMIN/GLOBULIN RATIO 0.65; ALKALINE PHOSPHATASE 139 IU/L (42-121); ANION GAP 11 (8-16); ASPARTATE AMINO TRANSFERASE 51 IU/L (15-46); BLOOD UREA NITROGEN 51 mg/dl (7-20); CALCIUM 8.9 mg/dl (8.4-10.2); CARBON DIOXIDE 29 mmol/L (21-31); CHLORIDE 122 mmol/L (97-110); CREATININE 0.61 mg/dl (0.44-1.00); GLUCOSE 237 mg/dl (70-220); SODIUM 158 mmol/L (135-144); TOTAL PROTEIN 7.3 g/dl (6.1-8.1)
[2017-09-02 07:51] LABS: ANISOCYTOSIS 1+ (0-0); BAND NEUTROPHILS #M 1.8 10^3/ul (0.0-0.6); BAND NEUTROPHILS % (M) 8 % (0-4); EOSINOPHILS % (M) 2 % (0-7); GIANT THROMBO% (M) 2 % (0-0); LYMPHOCYTES #M 3.5 10^3/ul (0.8-2.9); LYMPHOCYTES % (M) 15 % (15-51); MICROCYTOSIS 1+ (0-0); MONOCYTE #M 0.2 10^3/ul (0.3-0.9); MONOCYTES % (M) 1 % (0-11); PLATELET ESTIMATE NORMAL; POLYCHROMASIA 3+ (0-0); SEG NEUT #M 17.8 10^3/ul (1.6-7.5); SEGMENTED NEUTROPHILS (M) % 74 % (39-77); SMUDGE%M 7 % (0-0)
[2017-09-02] MEDS: ENOXAPARIN 40 MG/0.4 ML SYG SC (08:47)
[2017-09-02] MEDS: FERROUS SULFATE 60 MG/ML 5ML CUP GTB (08:47)
[2017-09-02] MEDS: ACETAMINOPHEN 325 MG TAB PEG (08:47)
[2017-09-02] MEDS: CALCIUM CARBONATE 500 MG CHEW TAB PO ×2 (08:47→21:10)
[2017-09-02] MEDS: METHADONE 10 MG TAB PEG ×2 (08:47→21:10)
[2017-09-02] MEDS: BUSPIRONE 5 MG TAB GTB ×2 (08:48→21:11)
[2017-09-02] MEDS: AMLODIPINE 5 MG TAB PEG (08:49)
[2017-09-02] MEDS: MULTIVITAMINS 30 ML CUP GTB (08:49)
[2017-09-02] MEDS: LISINOPRIL 10 MG TAB GTB (08:49)
[2017-09-02] MEDS: ASCORBIC ACID 500 MG TAB PEG (08:49)
[2017-09-02] MEDS: INSULIN DETEMIR [LEVEMIR] 3ML CART SC ×2 (09:05→21:09)
[2017-09-02] MEDS: VANCOMYCIN 750 MG in DEXTROSE 5% 150 ML IVPB (11:10)
[2017-09-02] MEDS ORDERED: PENDING SANTYL ORDER FOR WOUND CARE XX (11:30)
[2017-09-02] MEDS: HYDROCODONE/APAP (5/325) TAB PEG (14:05)
[2017-09-02] MEDS: COLLAGENASE 30 GM TUBE TOP (15:15)
[2017-09-02] MEDS ORDERED: VANCOMYCIN 1 GM 250 ML IVPB (16:00)
[2017-09-02] MEDS: SODIUM CHLORIDE 0.45% 500 ML BAG IV* (20:57)
[2017-09-02] MEDS: MONTELUKAST 10 MG TAB PEG (21:03)
[2017-09-02] MEDS: SOD CHLORIDE 0.45% 1,000 ML IV (21:12)
[2017-09-03] MEDS: VANCOMYCIN 750 MG in DEXTROSE 5% 150 ML IVPB ×2 (00:09→12:05)
[2017-09-03] MEDS: HYDROCODONE/APAP (5/325) TAB PEG (00:09)
[2017-09-03] MEDS: INSULIN ASPART [NOVOLOG] 3 ML PEN SC ×4 (00:19→17:58)
[2017-09-03] MEDS ORDERED: CEFTAZIDIME 2GM/50 ML (PMX) 50 ML IVPB (00:30)
[2017-09-03 06:03] LABS: ADD MAN DIFF? NO
[2017-09-03 06:09] LABS: BASOPHIL # 0.1 10^3/ul (0.0-0.1); BASOPHILS % 0.7 % (0.0-2.0); EOSINOPHILS # 0.7 10^3/ul (0.0-0.5); EOSINOPHILS % 3.5 % (0.0-7.0); HEMATOCRIT 29.5 % (37.0-47.0); HEMOGLOBIN 8.9 g/dl (12.0-16.0); LYMPHOCYTES # 3.6 10^3/ul (0.8-2.9); LYMPHOCYTES % 19.2 % (15.0-51.0); MEAN CORPUSCULAR HEMOGLOBIN 27.1 pg (29.0-33.0); MEAN CORPUSCULAR HGB CONC 30.2 g/dl (32.0-37.0); MEAN CORPUSCULAR VOLUME 89.9 fl (82.0-101.0); MEAN PLATELET VOLUME 11.2 fl (7.4-10.4); MONOCYTE # 0.9 10^3/ul (0.3-0.9); NEUTROPHIL # 13.4 10^3/ul (1.6-7.5); NEUTROPHILS % 70.5 % (39.0-77.0); RED BLOOD COUNT 3.28 10^6/ul (4.20-5.40); RED CELL DISTRIBUTION WIDTH 15.4 % (11.5-14.5)
[2017-09-03 06:21] LABS: POSITIVE DIFF @See below
[2017-09-03 06:31] LABS: ALANINE AMINOTRANSFERASE 35 IU/L (13-69); ALBUMIN 2.5 g/dl (3.3-4.9); ALBUMIN/GLOBULIN RATIO 0.64; ALKALINE PHOSPHATASE 112 IU/L (42-121); ANION GAP 12 (8-16); ASPARTATE AMINO TRANSFERASE 36 IU/L (15-46); BILIRUBIN,INDIRECT 0.1 mg/dl (0-1.1); BILIRUBIN,TOTAL 0.1 mg/dl (0.2-1.3); BLOOD UREA NITROGEN 38 mg/dl (7-20); CALCIUM 8.8 mg/dl (8.4-10.2); CARBON DIOXIDE 28 mmol/L (21-31); CHLORIDE 119 mmol/L (97-110); CREATININE 0.52 mg/dl (0.44-1.00); GLUCOSE 205 mg/dl (70-220); MAGNESIUM 2.1 mg/dl (1.7-2.5); POTASSIUM 4.5 mmol/L (3.5-5.1); SODIUM 154 mmol/L (135-144); TOTAL PROTEIN 6.4 g/dl (6.1-8.1)
[2017-09-03 06:57] LABS: LACTIC ACID 2.6 mmol/L (0.5-2.0)
[2017-09-03] MEDS: MULTIVITAMINS 30 ML CUP GTB (09:09)
[2017-09-03] MEDS: FERROUS SULFATE 60 MG/ML 5ML CUP GTB (09:10)
[2017-09-03] MEDS: CALCIUM CARBONATE 500 MG CHEW TAB PO ×2 (09:10→21:10)
[2017-09-03] MEDS: ASCORBIC ACID 500 MG TAB PEG (09:10)
[2017-09-03] MEDS: LISINOPRIL 10 MG TAB GTB (09:10)
[2017-09-03] MEDS: BUSPIRONE 5 MG TAB GTB ×2 (09:10→21:10)
[2017-09-03] MEDS: METHADONE 10 MG TAB PEG ×2 (09:13→21:10)
[2017-09-03] MEDS: COLLAGENASE 30 GM TUBE TOP (09:15)
[2017-09-03] MEDS: AMLODIPINE 5 MG TAB PEG (09:15)
[2017-09-03] MEDS: CEFTAZIDIME 2GM/50 ML (PMX) 50 ML IVPB (09:16)
[2017-09-03] MEDS: INSULIN DETEMIR [LEVEMIR] 3ML CART SC ×2 (09:17→21:19)
[2017-09-03] MEDS: ENOXAPARIN 40 MG/0.4 ML SYG SC (09:19)
[2017-09-03 09:41] LABS: ANISOCYTOSIS 1+ (0-0); BAND NEUTROPHILS #M 1.7 10^3/ul (0.0-0.6); BAND NEUTROPHILS % (M) 9 % (0-4); BASOPHIL #M 0.3 10^3/ul (0.0-0.0); BASOPHILS % (M) 2 % (0-2); EOSINOPHILS % (M) 4 % (0-7); LYMPHOCYTES #M 5.1 10^3/ul (0.8-2.9); LYMPHOCYTES % (M) 27 % (15-51); MICROCYTOSIS 1+ (0-0); MONOCYTE #M 0.1 10^3/ul (0.3-0.9); MONOCYTES % (M) 1 % (0-11); PLATELET ESTIMATE NORMAL; POIKILOCYTOSIS 1+ (0-0); POLYCHROMASIA 3+ (0-0); REACTIVE LYMPHOCYTES #M 0.1 10^3/ul (0.0-0.0); REACTIVE LYMPHOCYTES% (M) 1 % (0-0); SEGMENTED NEUTROPHILS (M) % 56 % (39-77); SMUDGE%M 10 % (0-0)
[2017-09-03] MEDS: MUPIROCIN 2% 22 GM OINT TOP ×2 (12:04→21:22)
[2017-09-03] MEDS: SOD CHLORIDE 0.45% 1,000 ML IV ×2 (13:59→17:00)
[2017-09-03 14:46] LABS: PLATELET COUNT 309 10^3/UL (140-415)
[2017-09-03] MEDS: MONTELUKAST 10 MG TAB PEG (21:09)
[2017-09-03] MEDS: CEFTAZIDIME 1GM/50 ML (PMX) 50 ML IVPB (21:20)
[2017-09-03 23:03] LABS: VANCOMYCIN,TROUGH 15.9 ug/ml (10.0-20.0)
[2017-09-04] MEDS: VANCOMYCIN 750 MG in DEXTROSE 5% 150 ML IVPB ×3 (00:06→23:32)
[2017-09-04] MEDS: INSULIN ASPART [NOVOLOG] 3 ML PEN SC ×4 (00:14→18:00)
[2017-09-04] MEDS: SOD CHLORIDE 0.45% 1,000 ML IV ×2 (03:33→12:04)
[2017-09-04 05:35] LABS: ADD MAN DIFF? NO
[2017-09-04 05:37] LABS: WHITE BLOOD COUNT 14.1 10^3/ul (4.8-10.8)
[2017-09-04 05:37] LABS: BASOPHIL # 0.1 10^3/ul (0.0-0.1); BASOPHILS % 0.6 % (0.0-2.0); EOSINOPHILS # 0.5 10^3/ul (0.0-0.5); EOSINOPHILS % 3.8 % (0.0-7.0); HEMATOCRIT 27.9 % (37.0-47.0); HEMOGLOBIN 8.8 g/dl (12.0-16.0); LYMPHOCYTES # 2.4 10^3/ul (0.8-2.9); LYMPHOCYTES % 17.3 % (15.0-51.0); MEAN CORPUSCULAR HEMOGLOBIN 27.2 pg (29.0-33.0); MEAN CORPUSCULAR HGB CONC 31.5 g/dl (32.0-37.0); MEAN CORPUSCULAR VOLUME 86.4 fl (82.0-101.0); MEAN PLATELET VOLUME 10.5 fl (7.4-10.4); MONOCYTE # 0.7 10^3/ul (0.3-0.9); MONOCYTES % 4.7 % (0.0-11.0); NEUTROPHIL # 10.2 10^3/ul (1.6-7.5); NEUTROPHILS % 72.5 % (39.0-77.0); PLATELET COUNT 256 10^3/UL (140-415); RED BLOOD COUNT 3.23 10^6/ul (4.20-5.40); RED CELL DISTRIBUTION WIDTH 15.4 % (11.5-14.5)
[2017-09-04 05:56] LABS: LACTIC ACID 1.4 mmol/L (0.5-2.0)
[2017-09-04 06:25] LABS: ALANINE AMINOTRANSFERASE 30 IU/L (13-69); ALBUMIN 2.5 g/dl (3.3-4.9); ALBUMIN/GLOBULIN RATIO 0.71; ALKALINE PHOSPHATASE 115 IU/L (42-121); ANION GAP 10 (8-16); ASPARTATE AMINO TRANSFERASE 21 IU/L (15-46); BILIRUBIN,INDIRECT 0.2 mg/dl (0-1.1); BILIRUBIN,TOTAL 0.2 mg/dl (0.2-1.3); BLOOD UREA NITROGEN 26 mg/dl (7-20); CALCIUM 8.6 mg/dl (8.4-10.2); CARBON DIOXIDE 30 mmol/L (21-31); CHLORIDE 111 mmol/L (97-110); CREATININE 0.48 mg/dl (0.44-1.00); GLUCOSE 169 mg/dl (70-220); PHOSPHORUS 1.8 mg/dl (2.5-4.9); POTASSIUM 3.8 mmol/L (3.5-5.1); SODIUM 147 mmol/L (135-144)
[2017-09-04] MEDS: INSULIN DETEMIR [LEVEMIR] 3ML CART SC ×2 (09:16→21:15)
[2017-09-04] MEDS: ENOXAPARIN 40 MG/0.4 ML SYG SC (09:16)
[2017-09-04] MEDS: MULTIVITAMINS 30 ML CUP GTB (09:17)
[2017-09-04] MEDS: FERROUS SULFATE 60 MG/ML 5ML CUP GTB (09:17)
[2017-09-04] MEDS: CALCIUM CARBONATE 500 MG CHEW TAB PO ×2 (09:17→21:15)
[2017-09-04] MEDS: BUSPIRONE 5 MG TAB GTB ×2 (09:17→21:15)
[2017-09-04] MEDS: METHADONE 10 MG TAB PEG ×2 (09:18→21:16)
[2017-09-04] MEDS: ASCORBIC ACID 500 MG TAB PEG (09:18)
[2017-09-04] MEDS: FLUCONAZOLE 100 MG TAB PO (09:18)
[2017-09-04] MEDS: MUPIROCIN 2% 22 GM OINT TOP ×2 (09:19→21:17)
[2017-09-04] MEDS: COLLAGENASE 30 GM TUBE TOP (09:19)
[2017-09-04] MEDS: AMLODIPINE 5 MG TAB PEG (09:19)
[2017-09-04] MEDS: LISINOPRIL 10 MG TAB GTB (09:19)
[2017-09-04] MEDS: CEFTAZIDIME 1GM/50 ML (PMX) 50 ML IVPB ×2 (09:41→21:14)
[2017-09-04] MEDS: HYDROCODONE/APAP (5/325) TAB PEG (18:06)
[2017-09-04] MEDS: MONTELUKAST 10 MG TAB PEG (21:15)
[2017-09-04] MEDS: EPOETIN ALFA (NESRD) 3,000 UNITS/ML VIAL SC (21:38)
[2017-09-05] MEDS: SOD CHLORIDE 0.45% 1,000 ML IV ×3 (04:28→18:19)
[2017-09-05] MEDS: INSULIN ASPART [NOVOLOG] 3 ML PEN SC ×4 (06:26→18:00)
[2017-09-05 06:31] LABS: ADD MAN DIFF? NO
[2017-09-05 06:34] LABS: BASOPHIL # 0.1 10^3/ul (0.0-0.1); BASOPHILS % 0.4 % (0.0-2.0); EOSINOPHILS # 0.5 10^3/ul (0.0-0.5); EOSINOPHILS % 2.9 % (0.0-7.0); HEMATOCRIT 26.8 % (37.0-47.0); HEMOGLOBIN 8.3 g/dl (12.0-16.0); LYMPHOCYTES # 2.3 10^3/ul (0.8-2.9); MEAN CORPUSCULAR HEMOGLOBIN 26.9 pg (29.0-33.0); MEAN CORPUSCULAR VOLUME 86.7 fl (82.0-101.0); MEAN PLATELET VOLUME 10.5 fl (7.4-10.4); MONOCYTE # 0.9 10^3/ul (0.3-0.9); MONOCYTES % 5.2 % (0.0-11.0); NEUTROPHIL # 12.7 10^3/ul (1.6-7.5); NEUTROPHILS % 76.5 % (39.0-77.0); PLATELET COUNT 280 10^3/UL (140-415); RED BLOOD COUNT 3.09 10^6/ul (4.20-5.40); RED CELL DISTRIBUTION WIDTH 15.3 % (11.5-14.5)
[2017-09-05 06:34] LABS: WHITE BLOOD COUNT 16.6 10^3/ul (4.8-10.8)
[2017-09-05 06:53] LABS: IRON 31 ug/dl (35-150)
[2017-09-05 07:02] LABS: % IRON SATURATION 14 % SAT (22-52); TOTAL IRON BINDING CAPACITY 227 ug/dl (241-421)
[2017-09-05 09:15] LABS: ERYTHROCYTE SEDIMENTATION RATE 140 mm/Hr (0-30)
[2017-09-05] MEDS: FERROUS SULFATE 60 MG/ML 5ML CUP GTB ×2 (09:36→20:18)
[2017-09-05] MEDS: MULTIVITAMINS 30 ML CUP GTB (09:36)
[2017-09-05] MEDS: ENOXAPARIN 40 MG/0.4 ML SYG SC (09:37)
[2017-09-05] MEDS: BUSPIRONE 5 MG TAB GTB ×2 (09:38→20:18)
[2017-09-05] MEDS: AMLODIPINE 5 MG TAB PEG (09:38)
[2017-09-05] MEDS: LISINOPRIL 10 MG TAB GTB (09:38)
[2017-09-05] MEDS: METHADONE 10 MG TAB PEG ×2 (09:38→20:18)
[2017-09-05] MEDS: FLUCONAZOLE 100 MG TAB PO (09:38)
[2017-09-05] MEDS: ASCORBIC ACID 500 MG TAB PEG (09:38)
[2017-09-05] MEDS: CALCIUM CARBONATE 500 MG CHEW TAB PO ×2 (09:38→20:18)
[2017-09-05] MEDS: CEFTAZIDIME 1GM/50 ML (PMX) 50 ML IVPB ×2 (09:41→20:24)
[2017-09-05] MEDS: INSULIN DETEMIR [LEVEMIR] 3ML CART SC ×2 (09:41→20:21)
[2017-09-05] MEDS: COLLAGENASE 30 GM TUBE TOP (09:42)
[2017-09-05] MEDS: MUPIROCIN 2% 22 GM OINT TOP ×2 (09:42→20:20)
[2017-09-05] MEDS: VANCOMYCIN 750 MG in DEXTROSE 5% 150 ML IVPB ×2 (11:23→23:00)
[2017-09-05] MEDS: DEXTROSE 50% 50 ML SYRINGE IV ×2 (14:25→18:19)
[2017-09-05] MEDS: MONTELUKAST 10 MG TAB PEG (20:18)
[2017-09-05 23:10] LABS: VANCOMYCIN,TROUGH 23.7 ug/ml (10.0-20.0)
[2017-09-06 05:49] LABS: ADD MAN DIFF? NO
[2017-09-06 05:52] LABS: BASOPHIL # 0.1 10^3/ul (0.0-0.1); BASOPHILS % 0.4 % (0.0-2.0); EOSINOPHILS # 0.4 10^3/ul (0.0-0.5); EOSINOPHILS % 2.9 % (0.0-7.0); HEMATOCRIT 23.4 % (37.0-47.0); HEMOGLOBIN 7.3 g/dl (12.0-16.0); LYMPHOCYTES # 2.3 10^3/ul (0.8-2.9); LYMPHOCYTES % 16.7 % (15.0-51.0); MEAN CORPUSCULAR HEMOGLOBIN 26.7 pg (29.0-33.0); MEAN CORPUSCULAR HGB CONC 31.2 g/dl (32.0-37.0); MEAN CORPUSCULAR VOLUME 85.7 fl (82.0-101.0); MEAN PLATELET VOLUME 10.4 fl (7.4-10.4); MONOCYTE # 0.9 10^3/ul (0.3-0.9); MONOCYTES % 6.4 % (0.0-11.0); NEUTROPHIL # 10.2 10^3/ul (1.6-7.5); NEUTROPHILS % 72.6 % (39.0-77.0); PLATELET COUNT 235 10^3/UL (140-415); RED BLOOD COUNT 2.73 10^6/ul (4.20-5.40); RED CELL DISTRIBUTION WIDTH 15.7 % (11.5-14.5)
[2017-09-06] MEDS: SOD CHLORIDE 0.45% 1,000 ML IV ×3 (05:59→23:32)
[2017-09-06] MEDS: INSULIN ASPART [NOVOLOG] 3 ML PEN SC ×4 (06:03→18:00)
[2017-09-06 06:28] LABS: CREATININE 0.52 mg/dl (0.44-1.00)
[2017-09-06 06:28] LABS: BLOOD UREA NITROGEN 18 mg/dl (7-20)
[2017-09-06] MEDS: HYDROCODONE/APAP (5/325) TAB PEG ×2 (07:53→17:12)
[2017-09-06] MEDS: MULTIVITAMINS 30 ML CUP GTB (08:52)
[2017-09-06] MEDS: CEFTAZIDIME 1GM/50 ML (PMX) 50 ML IVPB ×2 (08:52→21:41)
[2017-09-06] MEDS: ASCORBIC ACID 500 MG TAB PEG (08:53)
[2017-09-06] MEDS: CALCIUM CARBONATE 500 MG CHEW TAB PO ×2 (08:53→21:41)
[2017-09-06] MEDS: METHADONE 10 MG TAB PEG ×2 (08:53→21:41)
[2017-09-06] MEDS: FLUCONAZOLE 100 MG TAB PO (08:53)
[2017-09-06] MEDS: FERROUS SULFATE 60 MG/ML 5ML CUP GTB ×2 (08:53→21:41)
[2017-09-06] MEDS: BUSPIRONE 5 MG TAB GTB ×2 (08:53→21:42)
[2017-09-06] MEDS: AMLODIPINE 5 MG TAB PEG (08:54)
[2017-09-06] MEDS: LISINOPRIL 10 MG TAB GTB (08:55)
[2017-09-06] MEDS: MUPIROCIN 2% 22 GM OINT TOP ×2 (08:56→21:46)
[2017-09-06] MEDS: COLLAGENASE 30 GM TUBE TOP (08:56)
[2017-09-06] MEDS: INSULIN DETEMIR [LEVEMIR] 3ML CART SC ×2 (08:57→21:46)
[2017-09-06] MEDS: ENOXAPARIN 40 MG/0.4 ML SYG SC (08:58)
[2017-09-06 11:01] LABS: ADD MAN DIFF? NO
[2017-09-06 11:07] LABS: WHITE BLOOD COUNT 14.8 10^3/ul (4.8-10.8)
[2017-09-06 11:07] LABS: BASOPHIL # 0.1 10^3/ul (0.0-0.1); BASOPHILS % 0.4 % (0.0-2.0); EOSINOPHILS # 0.4 10^3/ul (0.0-0.5); EOSINOPHILS % 2.8 % (0.0-7.0); HEMATOCRIT 23.3 % (37.0-47.0); HEMOGLOBIN 7.3 g/dl (12.0-16.0); LYMPHOCYTES # 2.7 10^3/ul (0.8-2.9); LYMPHOCYTES % 17.9 % (15.0-51.0); MEAN CORPUSCULAR HEMOGLOBIN 26.8 pg (29.0-33.0); MEAN CORPUSCULAR HGB CONC 31.3 g/dl (32.0-37.0); MEAN CORPUSCULAR VOLUME 85.7 fl (82.0-101.0); MEAN PLATELET VOLUME 10.7 fl (7.4-10.4); MONOCYTES % 6.5 % (0.0-11.0); NEUTROPHIL # 10.6 10^3/ul (1.6-7.5); NEUTROPHILS % 71.5 % (39.0-77.0); PLATELET COUNT 245 10^3/UL (140-415); RED BLOOD COUNT 2.72 10^6/ul (4.20-5.40); RED CELL DISTRIBUTION WIDTH 15.5 % (11.5-14.5)
[2017-09-06 16:07] LABS: IMMEDIATE SPIN CROSSMATCH 1 1
[2017-09-06] MEDS: MONTELUKAST 10 MG TAB PEG (21:41)
[2017-09-07] MEDS: INSULIN ASPART [NOVOLOG] 3 ML PEN SC ×4 (00:12→17:41)
[2017-09-07] MEDS: COLLAGENASE 30 GM TUBE TOP (09:00)
[2017-09-07] MEDS: FERROUS SULFATE 60 MG/ML 5ML CUP GTB ×2 (09:35→21:28)
[2017-09-07] MEDS: MULTIVITAMINS 30 ML CUP GTB (09:35)
[2017-09-07] MEDS: AMLODIPINE 5 MG TAB PEG (09:36)
[2017-09-07] MEDS: FLUCONAZOLE 100 MG TAB PO (09:36)
[2017-09-07] MEDS: BUSPIRONE 5 MG TAB GTB ×2 (09:36→21:28)
[2017-09-07] MEDS: ASCORBIC ACID 500 MG TAB PEG (09:36)
[2017-09-07] MEDS: CALCIUM CARBONATE 500 MG CHEW TAB PO ×2 (09:36→21:28)
[2017-09-07] MEDS: LISINOPRIL 10 MG TAB GTB (09:36)
[2017-09-07] MEDS: METHADONE 10 MG TAB PEG ×2 (09:36→21:28)
[2017-09-07] MEDS: ENOXAPARIN 40 MG/0.4 ML SYG SC (09:41)
[2017-09-07] MEDS: CEFTAZIDIME 1GM/50 ML (PMX) 50 ML IVPB ×2 (09:41→21:27)
[2017-09-07] MEDS: SOD CHLORIDE 0.45% 1,000 ML IV (09:42)
[2017-09-07] MEDS: NYSTATIN 15 GM CR TOP ×4 (09:47→21:36)
[2017-09-07] MEDS: INSULIN DETEMIR [LEVEMIR] 3ML CART SC ×2 (11:55→21:35)
[2017-09-07] MEDS ORDERED: EPOETIN ALFA (NESRD) 3,000 UNITS/ML VIAL SC (12:30)
[2017-09-07 14:00] LABS: ADD MAN DIFF? NO
[2017-09-07 14:02] LABS: WHITE BLOOD COUNT 13.1 10^3/ul (4.8-10.8)
[2017-09-07 14:02] LABS: BASOPHIL # 0.1 10^3/ul (0.0-0.1); BASOPHILS % 0.4 % (0.0-2.0); EOSINOPHILS # 0.4 10^3/ul (0.0-0.5); EOSINOPHILS % 3.1 % (0.0-7.0); HEMOGLOBIN 8.7 g/dl (12.0-16.0); LYMPHOCYTES # 2.8 10^3/ul (0.8-2.9); LYMPHOCYTES % 21.3 % (15.0-51.0); MEAN CORPUSCULAR HEMOGLOBIN 27.6 pg (29.0-33.0); MEAN CORPUSCULAR HGB CONC 32.2 g/dl (32.0-37.0); MEAN CORPUSCULAR VOLUME 85.7 fl (82.0-101.0); MEAN PLATELET VOLUME 10.4 fl (7.4-10.4); MONOCYTE # 0.9 10^3/ul (0.3-0.9); MONOCYTES % 7.1 % (0.0-11.0); NEUTROPHIL # 8.8 10^3/ul (1.6-7.5); NEUTROPHILS % 66.7 % (39.0-77.0); PLATELET COUNT 259 10^3/UL (140-415); RED BLOOD COUNT 3.15 10^6/ul (4.20-5.40); RED CELL DISTRIBUTION WIDTH 15.9 % (11.5-14.5)
[2017-09-07] MEDS: MUPIROCIN 2% 22 GM OINT TOP ×2 (16:07→21:35)
[2017-09-07] MEDS: COLLAGENASE 5 GM (UD JAR) TOP (16:20)
[2017-09-07] MEDS: HYDROCODONE/APAP (5/325) TAB PEG (16:54)
[2017-09-07] MEDS: EPOETIN 10000 UNITS/ML (NON ESRD/NON ONCOLOGY) SC (16:55)
[2017-09-07] MEDS: MONTELUKAST 10 MG TAB PEG (21:28)
[2017-09-08] MEDS: INSULIN ASPART [NOVOLOG] 3 ML PEN SC ×4 (06:00→17:19)
[2017-09-08 06:34] LABS: ADD MAN DIFF? NO
[2017-09-08 06:41] LABS: BASOPHIL # 0.1 10^3/ul (0.0-0.1); BASOPHILS % 0.7 % (0.0-2.0); EOSINOPHILS # 0.6 10^3/ul (0.0-0.5); EOSINOPHILS % 4.7 % (0.0-7.0); HEMATOCRIT 26.2 % (37.0-47.0); HEMOGLOBIN 8.5 g/dl (12.0-16.0); LYMPHOCYTES # 2.6 10^3/ul (0.8-2.9); MEAN CORPUSCULAR HEMOGLOBIN 28.2 pg (29.0-33.0); MEAN CORPUSCULAR HGB CONC 32.4 g/dl (32.0-37.0); MEAN PLATELET VOLUME 10.4 fl (7.4-10.4); MONOCYTES % 8.2 % (0.0-11.0); NEUTROPHIL # 7.4 10^3/ul (1.6-7.5); NEUTROPHILS % 63.2 % (39.0-77.0); PLATELET COUNT 274 10^3/UL (140-415); RED BLOOD COUNT 3.01 10^6/ul (4.20-5.40); RED CELL DISTRIBUTION WIDTH 16.6 % (11.5-14.5)
[2017-09-08 06:41] LABS: WHITE BLOOD COUNT 11.7 10^3/ul (4.8-10.8)
[2017-09-08 07:26] LABS: ALANINE AMINOTRANSFERASE 14 IU/L (13-69); ALBUMIN 2.6 g/dl (3.3-4.9); ALBUMIN/GLOBULIN RATIO 0.72; ALKALINE PHOSPHATASE 99 IU/L (42-121); ANION GAP 11 (8-16); ASPARTATE AMINO TRANSFERASE 15 IU/L (15-46); BILIRUBIN,INDIRECT 0.1 mg/dl (0-1.1); BILIRUBIN,TOTAL 0.1 mg/dl (0.2-1.3); BLOOD UREA NITROGEN 17 mg/dl (7-20); CALCIUM 8.6 mg/dl (8.4-10.2); CARBON DIOXIDE 30 mmol/L (21-31); CHLORIDE 107 mmol/L (97-110); CREATININE 0.48 mg/dl (0.44-1.00); GLUCOSE 125 mg/dl (70-220); POTASSIUM 3.8 mmol/L (3.5-5.1); SODIUM 144 mmol/L (135-144); TOTAL PROTEIN 6.2 g/dl (6.1-8.1)
[2017-09-08] MEDS: INSULIN DETEMIR [LEVEMIR] 3ML CART SC (08:32)
[2017-09-08] MEDS: ENOXAPARIN 40 MG/0.4 ML SYG SC (08:32)
[2017-09-08] MEDS: COLLAGENASE 5 GM (UD JAR) TOP (08:35)
[2017-09-08] MEDS: FERROUS SULFATE 60 MG/ML 5ML CUP GTB (08:35)
[2017-09-08] MEDS: ASCORBIC ACID 500 MG TAB PEG (08:35)
[2017-09-08] MEDS: CALCIUM CARBONATE 500 MG CHEW TAB PO (08:35)
[2017-09-08] MEDS: AMLODIPINE 5 MG TAB PEG (08:36)
[2017-09-08] MEDS: LISINOPRIL 10 MG TAB GTB (08:36)
[2017-09-08] MEDS: METHADONE 10 MG TAB PEG (08:36)
[2017-09-08] MEDS: BUSPIRONE 5 MG TAB GTB (08:37)
[2017-09-08] MEDS: FLUCONAZOLE 100 MG TAB PO (08:37)
[2017-09-08] MEDS: MULTIVITAMINS 30 ML CUP GTB (08:37)
[2017-09-08] MEDS: NYSTATIN 15 GM CR TOP ×3 (08:38→17:06)
[2017-09-08] MEDS: COLLAGENASE 30 GM TUBE TOP (09:00)
[2017-09-08] MEDS ORDERED: EPOETIN 10000 UNITS/1 ML INJ (ESRD) SC (13:30)
[2017-09-08] MEDS: EPOETIN 10000 UNITS/1 ML INJ (ESRD) SC (13:57)
[2017-09-08] MEDS: HYDROCODONE/APAP (5/325) TAB PEG (17:22)
== END 2017-09-08 18:20 | DRG 871 ==
LOC: PP2 09-05 10:51 → E/R 14:34 → PP2 18:08
PROC: 30233N1 Transfusion of Nonautologous Red Blood Cells into Peripheral Vein, Percutaneous Approach (ICD-10-PCS; principal; 2017-09-06)
DX: A41.9 Sepsis, unspecified organism (principal); L89.323 Pressure ulcer of left buttock, stage 3; L89.154 Pressure ulcer of sacral region, stage 4; G93.40 Encephalopathy, unspecified; N39.0 Urinary tract infection, site not specified; E87.0 Hyperosmolality and hypernatremia; B37.89 Other sites of candidiasis; R65.20 Severe sepsis without septic shock; I12.9 Hypertensive chronic kidney disease with stage 1 through stage 4 chronic kidney disease, or unspecified chronic kidney disease; E11.22 Type 2 diabetes mellitus with diabetic chronic kidney disease; N18.9 Chronic kidney disease, unspecified; L89.622 Pressure ulcer of left heel, stage 2; L89.022 Pressure ulcer of left elbow, stage 2; L89.012 Pressure ulcer of right elbow, stage 2; B35.4 Tinea corporis; Z22.322 Carrier or suspected carrier of Methicillin resistant Staphylococcus aureus; B96.5 Pseudomonas (aeruginosa) (mallei) (pseudomallei) as the cause of diseases classified elsewhere
CPT/HCPCS: 36415; 36430; 71045; 80053; 80202; 81001; 82565; 82962; 83036; 83540; 83605; 83735; 84100; 84484; 84520; 85025; 85610; 85651; 85730; 86850; 86900; 86901; 86920; 87040; 87070; 87081; 87086; 93005; 96361; 96365; 96375; 99291-25

== ENCOUNTER 2017-09-09 09:50 | Inpatient (IN) | payer MEDICARE, MEDICAID ==
[2017-09-09] MEDS: SODIUM CHLORIDE 0.9% 1L BAG IV* (10:29)
[2017-09-09] MEDS: ACETAMINOPHEN 650 MG SUPP PR (10:30)
[2017-09-09] MEDS ORDERED: ACETAMINOPHEN 650MG/20.3ML CUP (10:59)
[2017-09-09 11:35] LABS: ADD UMIC YES; UR ASCORBIC ACID 40 mg/dL (NEGATIVE); UR BILIRUBIN (Dip) NEGATIVE (NEGATIVE); UR BLOOD (Dip) NEGATIVE (NEGATIVE); UR CLARITY CLEAR (CLEAR); UR COLOR YELLOW (YELLOW); UR GLUCOSE (Dip) NEGATIVE (NEGATIVE); UR KETONES (Dip) NEGATIVE (NEGATIVE); UR LEUKOCYTE ESTERASE (Dip) 2+ Leu/ul (NEGATIVE); UR NITRITE (Dip) NEGATIVE (NEGATIVE); UR RBC 5 /HPF (0-5); UR TOTAL PROTEIN (Dip) 2+ mg/dl (NEGATIVE); UR UROBILINOGEN (Dip) NEGATIVE (NEGATIVE); UR WBC 73 /HPF (0-5)
[2017-09-09 11:54] LABS: ADD MAN DIFF? NO
[2017-09-09] MEDS: MEROPENEM 1 GM/50ML(PMX) 50 ML IVPB ×2 (12:00→21:00)
[2017-09-09] MEDS ORDERED: CEFTRIAXONE 1 GM/50 ML (PMX) 50 ML IVPB (12:00)
[2017-09-09] MEDS ORDERED: CEFEPIME 1GM/50 ML (PMX) 50 ML IVPB (12:00)
[2017-09-09 12:17] LABS: BASOPHIL # 0.1 10^3/ul (0.0-0.1); BASOPHILS % 0.5 % (0.0-2.0); EOSINOPHILS # 0.5 10^3/ul (0.0-0.5); EOSINOPHILS % 3.4 % (0.0-7.0); HEMATOCRIT 29.5 % (37.0-47.0); HEMOGLOBIN 9.2 g/dl (12.0-16.0); LYMPHOCYTES # 2.8 10^3/ul (0.8-2.9); LYMPHOCYTES % 19.2 % (15.0-51.0); MEAN CORPUSCULAR HEMOGLOBIN 27.5 pg (29.0-33.0); MEAN CORPUSCULAR HGB CONC 31.2 g/dl (32.0-37.0); MEAN CORPUSCULAR VOLUME 88.3 fl (82.0-101.0); MEAN PLATELET VOLUME 10.3 fl (7.4-10.4); MONOCYTE # 1.1 10^3/ul (0.3-0.9); MONOCYTES % 7.7 % (0.0-11.0); NEUTROPHIL # 9.8 10^3/ul (1.6-7.5); NEUTROPHILS % 67.3 % (39.0-77.0); NUCLEATED RED BLOOD CELLS% 0.1 /100WBC (0.0-0.0); PLATELET COUNT 359 10^3/UL (140-415); RED BLOOD COUNT 3.34 10^6/ul (4.20-5.40); RED CELL DISTRIBUTION WIDTH 17.7 % (11.5-14.5)
[2017-09-09 12:17] LABS: WHITE BLOOD COUNT 14.6 10^3/ul (4.8-10.8)
[2017-09-09 12:18] LABS: LACTIC ACID 1.5 mmol/L (0.5-2.0)
[2017-09-09 12:20] LABS: ALANINE AMINOTRANSFERASE 17 IU/L (13-69); ALBUMIN/GLOBULIN RATIO 0.76; ALKALINE PHOSPHATASE 113 IU/L (42-121); ANION GAP 8 (8-16); ASPARTATE AMINO TRANSFERASE 17 IU/L (15-46); BILIRUBIN,INDIRECT 0.1 mg/dl (0-1.1); BILIRUBIN,TOTAL 0.1 mg/dl (0.2-1.3); BLOOD UREA NITROGEN 18 mg/dl (7-20); CALCIUM 9.3 mg/dl (8.4-10.2); CARBON DIOXIDE 32 mmol/L (21-31); CHLORIDE 104 mmol/L (97-110); CREATININE 0.53 mg/dl (0.44-1.00); GLUCOSE 206 mg/dl (70-220); POTASSIUM 4.3 mmol/L (3.5-5.1); SODIUM 140 mmol/L (135-144); TOTAL PROTEIN 6.9 g/dl (6.1-8.1)
[2017-09-09 12:22] LABS: INR 1.07; PT RATIO 1.1
[2017-09-09 12:30] LABS: TROPONIN-I 0.055 ng/ml (0.00-0.12)
[2017-09-09 12:38] LABS: LIPASE < 10 U/L (23-300)
[2017-09-09] MEDS: CEFTAZIDIME 1GM/50 ML (PMX) 50 ML IVPB (12:59)
[2017-09-09] MEDS ORDERED: ONDANSETRON 4 MG TAB PEG (17:30)
[2017-09-09] MEDS ORDERED: ALBUTEROL/IPRATROPIUM (NEB) 3 ML AMP HHN (17:30)
[2017-09-09] MEDS ORDERED: ACETAMINOPHEN 325 MG TAB PEG (17:30)
[2017-09-09] MEDS: HYDROCODONE/APAP (5/325) TAB GTB (18:28)
[2017-09-09] MEDS: METHADONE 10 MG TAB GTB (18:29)
[2017-09-09 18:48] LABS: LACTIC ACID 1.3 mmol/L (0.5-2.0)
[2017-09-09] MEDS: INSULIN DETEMIR [LEVEMIR] 3ML CART SC (20:00)
[2017-09-09] MEDS: NYSTATIN 15 GM POWDER BTL TOP (21:00)
[2017-09-09] MEDS ORDERED: PROTEIN SUPPLEMENT GTB (21:00)
[2017-09-09] MEDS: BISACODYL 10 MG SUPP PR (21:22)
[2017-09-09] MEDS: MAGNESIUM HYDROXIDE 30ML CUP PEG (21:23)
[2017-09-09] MEDS: MONTELUKAST 10 MG TAB PEG (21:25)
[2017-09-09] MEDS: DOCUSATE SODIUM 10 MG/ML (10ML CUP) PEG (21:25)
[2017-09-09] MEDS: FERROUS SULFATE 60 MG/ML 5ML CUP GTB (21:25)
[2017-09-09 21:34] LABS: LACTIC ACID 1.4 mmol/L (0.5-2.0)
[2017-09-10] MEDS ORDERED: GLUCOSE GEL 15 GRAM TUBE PO ×2 (01:00)
[2017-09-10] MEDS ORDERED: GLUCAGON 1 MG INJ IM (01:00)
[2017-09-10] MEDS ORDERED: GLUCOSE GEL 15 GRAM TUBE BUCCAL (01:00)
[2017-09-10] MEDS: INSULIN ASPART [NOVOLOG] 3 ML PEN SC ×6 (01:32→20:26)
[2017-09-10] MEDS: ACCU-CHEK XX (01:34)
[2017-09-10] MEDS ORDERED: ACCU-CHEK XX (02:00)
[2017-09-10] MEDS: BUSPIRONE 5 MG TAB GTB ×3 (02:54→20:37)
[2017-09-10] MEDS: MEROPENEM 1 GM/50ML(PMX) 50 ML IVPB ×3 (04:18→20:46)
[2017-09-10] MEDS: METHADONE 10 MG TAB GTB ×2 (05:23→17:14)
[2017-09-10 05:31] LABS: ADD MAN DIFF? NO; BASOPHIL # 0.1 10^3/ul (0.0-0.1); BASOPHILS % 0.7 % (0.0-2.0); EOSINOPHILS # 0.4 10^3/ul (0.0-0.5); EOSINOPHILS % 3.6 % (0.0-7.0); HEMATOCRIT 27.9 % (37.0-47.0); HEMOGLOBIN 8.6 g/dl (12.0-16.0); LYMPHOCYTES # 2.5 10^3/ul (0.8-2.9); LYMPHOCYTES % 23.9 % (15.0-51.0); MEAN CORPUSCULAR HEMOGLOBIN 27.8 pg (29.0-33.0); MEAN CORPUSCULAR HGB CONC 30.8 g/dl (32.0-37.0); MEAN CORPUSCULAR VOLUME 90.3 fl (82.0-101.0); MONOCYTE # 0.9 10^3/ul (0.3-0.9); NEUTROPHIL # 6.3 10^3/ul (1.6-7.5); NEUTROPHILS % 60.8 % (39.0-77.0); NUCLEATED RED BLOOD CELLS% 0.2 /100WBC (0.0-0.0); PLATELET COUNT 320 10^3/UL (140-415); RED BLOOD COUNT 3.09 10^6/ul (4.20-5.40); RED CELL DISTRIBUTION WIDTH 17.9 % (11.5-14.5)
[2017-09-10 05:31] LABS: WHITE BLOOD COUNT 10.4 10^3/ul (4.8-10.8)
[2017-09-10 05:48] LABS: ALANINE AMINOTRANSFERASE 16 IU/L (13-69); ALBUMIN 2.5 g/dl (3.3-4.9); ALBUMIN/GLOBULIN RATIO 0.73; ALKALINE PHOSPHATASE 90 IU/L (42-121); ANION GAP 6 (8-16); ASPARTATE AMINO TRANSFERASE 17 IU/L (15-46); BILIRUBIN,INDIRECT 0.1 mg/dl (0-1.1); BILIRUBIN,TOTAL 0.1 mg/dl (0.2-1.3); BLOOD UREA NITROGEN 20 mg/dl (7-20); CALCIUM 8.9 mg/dl (8.4-10.2); CARBON DIOXIDE 31 mmol/L (21-31); CHLORIDE 107 mmol/L (97-110); CREATININE 0.49 mg/dl (0.44-1.00); GLUCOSE 184 mg/dl (70-220); POTASSIUM 4.4 mmol/L (3.5-5.1); SODIUM 140 mmol/L (135-144); TOTAL PROTEIN 5.9 g/dl (6.1-8.1)
[2017-09-10 06:17] LABS: PREALBUMIN 10.6 mg/dl (17.6-36.0)
[2017-09-10] MEDS ORDERED: INSULIN ASPART [NOVOLOG] 3 ML PEN SC (08:00)
[2017-09-10] MEDS: INSULIN DETEMIR [LEVEMIR] 3ML CART SC ×2 (08:41→20:00)
[2017-09-10] MEDS: FERROUS SULFATE 60 MG/ML 5ML CUP GTB ×2 (08:42→20:37)
[2017-09-10] MEDS: DOCUSATE SODIUM 10 MG/ML (10ML CUP) PEG ×2 (08:42→20:37)
[2017-09-10] MEDS: NYSTATIN 15 GM POWDER BTL TOP ×4 (08:42→20:44)
[2017-09-10] MEDS: COLLAGENASE 5 GM (UD JAR) TOP (08:42)
[2017-09-10] MEDS: FLUCONAZOLE 100 MG TAB GTB (08:43)
[2017-09-10] MEDS: LISINOPRIL 10 MG TAB GTB (08:43)
[2017-09-10] MEDS: ASCORBIC ACID 500 MG TAB PEG (08:43)
[2017-09-10] MEDS: AMLODIPINE 5 MG TAB PEG (08:44)
[2017-09-10] MEDS: ENOXAPARIN 40 MG/0.4 ML SYG SC (08:45)
[2017-09-10] MEDS: MAGNESIUM HYDROXIDE 30ML CUP PEG (17:13)
[2017-09-10] MEDS: BISACODYL 10 MG SUPP PR (17:13)
[2017-09-10] MEDS: HYDROCODONE/APAP (5/325) TAB GTB (17:13)
[2017-09-10] MEDS: MONTELUKAST 10 MG TAB PEG (20:37)
[2017-09-11] MEDS: INSULIN ASPART [NOVOLOG] 3 ML PEN SC ×6 (01:00→21:00)
[2017-09-11] MEDS: ACCU-CHEK XX (02:00)
[2017-09-11] MEDS: METHADONE 10 MG TAB GTB ×2 (05:19→17:44)
[2017-09-11 05:46] LABS: ADD MAN DIFF? NO
[2017-09-11 06:06] LABS: WHITE BLOOD COUNT 11.2 10^3/ul (4.8-10.8)
[2017-09-11 06:06] LABS: BASOPHIL # 0.1 10^3/ul (0.0-0.1); BASOPHILS % 0.5 % (0.0-2.0); EOSINOPHILS # 0.4 10^3/ul (0.0-0.5); EOSINOPHILS % 3.5 % (0.0-7.0); HEMATOCRIT 28.3 % (37.0-47.0); LYMPHOCYTES # 2.6 10^3/ul (0.8-2.9); LYMPHOCYTES % 23.1 % (15.0-51.0); MEAN CORPUSCULAR HEMOGLOBIN 28.8 pg (29.0-33.0); MEAN CORPUSCULAR HGB CONC 31.8 g/dl (32.0-37.0); MEAN CORPUSCULAR VOLUME 90.4 fl (82.0-101.0); MEAN PLATELET VOLUME 9.9 fl (7.4-10.4); MONOCYTE # 0.9 10^3/ul (0.3-0.9); MONOCYTES % 8.3 % (0.0-11.0); NUCLEATED RED BLOOD CELLS% 0.2 /100WBC (0.0-0.0); PLATELET COUNT 305 10^3/UL (140-415); RED BLOOD COUNT 3.13 10^6/ul (4.20-5.40); RED CELL DISTRIBUTION WIDTH 18.2 % (11.5-14.5)
[2017-09-11 06:33] LABS: ALANINE AMINOTRANSFERASE 18 IU/L (13-69); ALBUMIN 2.6 g/dl (3.3-4.9); ALKALINE PHOSPHATASE 93 IU/L (42-121); ANION GAP 9 (8-16); ASPARTATE AMINO TRANSFERASE 18 IU/L (15-46); BILIRUBIN,INDIRECT 0.1 mg/dl (0-1.1); BILIRUBIN,TOTAL 0.1 mg/dl (0.2-1.3); BLOOD UREA NITROGEN 20 mg/dl (7-20); CALCIUM 9.1 mg/dl (8.4-10.2); CARBON DIOXIDE 32 mmol/L (21-31); CHLORIDE 104 mmol/L (97-110); GLUCOSE 138 mg/dl (70-220); POTASSIUM 4.8 mmol/L (3.5-5.1); SODIUM 140 mmol/L (135-144); TOTAL PROTEIN 6.3 g/dl (6.1-8.1)
[2017-09-11] MEDS: INSULIN DETEMIR [LEVEMIR] 3ML CART SC ×2 (08:50→21:01)
[2017-09-11] MEDS: ENOXAPARIN 40 MG/0.4 ML SYG SC (08:51)
[2017-09-11] MEDS: MEROPENEM 1 GM/50ML(PMX) 50 ML IVPB ×2 (09:14→21:03)
[2017-09-11] MEDS: FERROUS SULFATE 60 MG/ML 5ML CUP GTB ×2 (09:15→21:03)
[2017-09-11] MEDS: LISINOPRIL 10 MG TAB GTB (09:15)
[2017-09-11] MEDS: DOCUSATE SODIUM 10 MG/ML (10ML CUP) PEG ×2 (09:15→21:03)
[2017-09-11] MEDS: AMLODIPINE 5 MG TAB PEG (09:15)
[2017-09-11] MEDS: ASCORBIC ACID 500 MG TAB PEG (09:15)
[2017-09-11] MEDS: COLLAGENASE 5 GM (UD JAR) TOP (09:16)
[2017-09-11] MEDS: BUSPIRONE 5 MG TAB GTB (09:16)
[2017-09-11] MEDS: FLUCONAZOLE 100 MG TAB GTB (09:16)
[2017-09-11] MEDS: NYSTATIN 15 GM POWDER BTL TOP ×4 (09:17→21:04)
[2017-09-11] MEDS: HYDROCODONE/APAP (5/325) TAB GTB (15:22)
[2017-09-11] MEDS: BISACODYL 10 MG SUPP PR (17:34)
[2017-09-11] MEDS: MAGNESIUM HYDROXIDE 30ML CUP PEG (17:34)
[2017-09-11] MEDS: MONTELUKAST 10 MG TAB PEG (21:03)
[2017-09-12] MEDS: INSULIN ASPART [NOVOLOG] 3 ML PEN SC ×6 (00:39→20:38)
[2017-09-12] MEDS: ACCU-CHEK XX (02:00)
[2017-09-12] MEDS: METHADONE 10 MG TAB GTB ×2 (06:39→18:14)
[2017-09-12] MEDS: INSULIN DETEMIR [LEVEMIR] 3ML CART SC (09:30)
[2017-09-12] MEDS: DEXTROSE 50% 50 ML SYRINGE IV ×2 (09:31→13:24)
[2017-09-12] MEDS: MEROPENEM 1 GM/50ML(PMX) 50 ML IVPB ×2 (09:31→20:38)
[2017-09-12] MEDS: ENOXAPARIN 40 MG/0.4 ML SYG SC (09:33)
[2017-09-12] MEDS: FLUCONAZOLE 100 MG TAB GTB (09:33)
[2017-09-12] MEDS: DOCUSATE SODIUM 10 MG/ML (10ML CUP) PEG ×2 (09:34→20:38)
[2017-09-12] MEDS: COLLAGENASE 5 GM (UD JAR) TOP (09:34)
[2017-09-12] MEDS: NYSTATIN 15 GM POWDER BTL TOP ×4 (09:34→20:39)
[2017-09-12] MEDS: FERROUS SULFATE 60 MG/ML 5ML CUP GTB ×2 (09:34→20:38)
[2017-09-12] MEDS: ASCORBIC ACID 500 MG TAB PEG (09:34)
[2017-09-12] MEDS: AMLODIPINE 5 MG TAB PEG (10:30)
[2017-09-12] MEDS: LISINOPRIL 10 MG TAB GTB (10:30)
[2017-09-12] MEDS: HYDROCODONE/APAP (5/325) TAB GTB (15:00)
[2017-09-12] MEDS: BISACODYL 10 MG SUPP PR (18:14)
[2017-09-12] MEDS: MAGNESIUM HYDROXIDE 30ML CUP PEG (18:14)
[2017-09-12] MEDS: MONTELUKAST 10 MG TAB PEG (20:38)
[2017-09-13] MEDS: INSULIN ASPART [NOVOLOG] 3 ML PEN SC ×4 (00:42→13:00)
[2017-09-13] MEDS: ACCU-CHEK XX (02:00)
[2017-09-13] MEDS: METHADONE 10 MG TAB GTB (06:32)
[2017-09-13] MEDS: INSULIN GLARGINE [LANtus] 3 ML PEN SC (08:00)
[2017-09-13] MEDS: COLLAGENASE 5 GM (UD JAR) TOP (09:00)
[2017-09-13] MEDS: MEROPENEM 1 GM/50ML(PMX) 50 ML IVPB (09:49)
[2017-09-13] MEDS: DOCUSATE SODIUM 10 MG/ML (10ML CUP) PEG (09:49)
[2017-09-13] MEDS: FLUCONAZOLE 100 MG TAB GTB (09:49)
[2017-09-13] MEDS: ASCORBIC ACID 500 MG TAB PEG (09:49)
[2017-09-13] MEDS: FERROUS SULFATE 60 MG/ML 5ML CUP GTB (09:49)
[2017-09-13] MEDS: AMLODIPINE 5 MG TAB PEG (09:50)
[2017-09-13] MEDS: LISINOPRIL 10 MG TAB GTB (09:50)
[2017-09-13] MEDS: NYSTATIN 15 GM POWDER BTL TOP ×2 (09:51→13:10)
[2017-09-13] MEDS: ENOXAPARIN 40 MG/0.4 ML SYG SC (09:52)
[2017-09-13] MEDS: HYDROCODONE/APAP (5/325) TAB GTB (14:16)
== END 2017-09-13 17:17 | DRG 689 ==
LOC: E/R 09:50 → PP2 12:50
DX: N39.0 Urinary tract infection, site not specified (principal); L89.154 Pressure ulcer of sacral region, stage 4; E46 Unspecified protein-calorie malnutrition; M86.8X8 Other osteomyelitis, other site; E11.42 Type 2 diabetes mellitus with diabetic polyneuropathy; E11.22 Type 2 diabetes mellitus with diabetic chronic kidney disease; I12.9 Hypertensive chronic kidney disease with stage 1 through stage 4 chronic kidney disease, or unspecified chronic kidney disease; N18.9 Chronic kidney disease, unspecified; K80.50 Calculus of bile duct without cholangitis or cholecystitis without obstruction; Z93.1 Gastrostomy status; E11.69 Type 2 diabetes mellitus with other specified complication; Z79.4 Long term (current) use of insulin; Z86.718 Personal history of other venous thrombosis and embolism; Z89.422 Acquired absence of other left toe(s); Z89.511 Acquired absence of right leg below knee
CPT/HCPCS: 36415; 71045; 74176; 80053; 81001; 82962; 83605; 83690; 84134; 84484; 85025; 85610; 85730; 87040; 87070; 87081; 87086; 93005; 96374; 96375; 99291-25

== ENCOUNTER 2017-09-16 00:30 | Inpatient (IN) | payer MEDICARE, MEDICAID ==
[2017-09-16] MEDS: CEFEPIME 1GM/50 ML (PMX) 50 ML IVPB (01:53)
[2017-09-16] MEDS: SOD CHLORIDE 0.9% 1,000 ML IV ×3 (01:53→09:56)
[2017-09-16] MEDS: LACTATED RINGER'S 1,000 ML IV (01:53)
[2017-09-16 01:59] LABS: ADD MAN DIFF? NO
[2017-09-16 02:02] LABS: WHITE BLOOD COUNT 37.7 10^3/ul (4.8-10.8)
[2017-09-16 02:02] LABS: ABNORMAL IP MESSAGE 1; BASOPHIL # 0.2 10^3/ul (0.0-0.1); BASOPHILS % 0.5 % (0.0-2.0); EOSINOPHILS % 0.1 % (0.0-7.0); HEMATOCRIT 35.1 % (37.0-47.0); HEMOGLOBIN 11.1 g/dl (12.0-16.0); LYMPHOCYTES # 0.9 10^3/ul (0.8-2.9); LYMPHOCYTES % 2.5 % (15.0-51.0); MEAN CORPUSCULAR HGB CONC 31.6 g/dl (32.0-37.0); MEAN CORPUSCULAR VOLUME 88.6 fl (82.0-101.0); MEAN PLATELET VOLUME 9.4 fl (7.4-10.4); MONOCYTE # 1.1 10^3/ul (0.3-0.9); MONOCYTES % 2.9 % (0.0-11.0); NEUTROPHIL # 34.9 10^3/ul (1.6-7.5); NEUTROPHILS % 92.3 % (39.0-77.0); PLATELET COUNT 371 10^3/UL (140-415); RED BLOOD COUNT 3.96 10^6/ul (4.20-5.40); RED CELL DISTRIBUTION WIDTH 17.6 % (11.5-14.5)
[2017-09-16 02:05] LABS: POSITIVE DIFF @See below
[2017-09-16 02:21] LABS: INR 1.05; PROTIME 13.8 Sec (11.9-14.9); PT RATIO 1.1
[2017-09-16 02:22] LABS: PARTIAL THROMBOPLASTIN TIME 32.9 Sec (25.0-35.0)
[2017-09-16 02:24] LABS: ALANINE AMINOTRANSFERASE 18 IU/L (13-69); ALBUMIN 3.1 g/dl (3.3-4.9); ALBUMIN/GLOBULIN RATIO 0.77; ALKALINE PHOSPHATASE 120 IU/L (42-121); ANION GAP 17 (8-16); ASPARTATE AMINO TRANSFERASE 27 IU/L (15-46); BILIRUBIN,INDIRECT 0.2 mg/dl (0-1.1); BILIRUBIN,TOTAL 0.2 mg/dl (0.2-1.3); BLOOD UREA NITROGEN 34 mg/dl (7-20); CALCIUM 9.5 mg/dl (8.4-10.2); CARBON DIOXIDE 20 mmol/L (21-31); CHLORIDE 101 mmol/L (97-110); GLUCOSE 269 mg/dl (70-220); POTASSIUM 4.6 mmol/L (3.5-5.1); SODIUM 133 mmol/L (135-144); TOTAL PROTEIN 7.1 g/dl (6.1-8.1)
[2017-09-16 02:25] LABS: ADD UMIC YES; UR ASCORBIC ACID 40 mg/dL (NEGATIVE); UR BACTERIA FEW /HPF (NONE SEEN); UR BILIRUBIN (Dip) NEGATIVE (NEGATIVE); UR BLOOD (Dip) NEGATIVE (NEGATIVE); UR BUDDING YEAST MANY /HPF (NONE SEEN); UR CLARITY TURBID (CLEAR); UR COLOR AMBER (YELLOW); UR GLUCOSE (Dip) NEGATIVE (NEGATIVE); UR KETONES (Dip) NEGATIVE (NEGATIVE); UR LEUKOCYTE ESTERASE (Dip) 3+ Leu/ul (NEGATIVE); UR NITRITE (Dip) NEGATIVE (NEGATIVE); UR RBC 18 /HPF (0-5); UR SPECIFIC GRAVITY (Dip) 1.014 (1.003-1.030); UR TOTAL PROTEIN (Dip) 2+ mg/dl (NEGATIVE); UR UROBILINOGEN (Dip) NEGATIVE (NEGATIVE); UR WBC > 182 /HPF (0-5)
[2017-09-16 02:28] LABS: LACTIC ACID 5.3 mmol/L (0.5-2.0)
[2017-09-16 02:35] LABS: TROPONIN-I 0.068 ng/ml (0.00-0.12)
[2017-09-16 06:11] LABS: LACTIC ACID 3.7 mmol/L (0.5-2.0)
[2017-09-16 06:41] LABS: LACTIC ACID 2.3 mmol/L (0.5-2.0)
[2017-09-16] MEDS ORDERED: morphine 2 MG INJ IV (08:30)
[2017-09-16] MEDS ORDERED: ACETAMINOPHEN 325 MG TAB PO (08:30)
[2017-09-16] MEDS ORDERED: NACL 0.9% 3 ML SYG IV (08:30)
[2017-09-16] MEDS ORDERED: ONDANSETRON 4 MG INJ IV (08:30)
[2017-09-16] MEDS ORDERED: ENOXAPARIN 40 MG/0.4 ML SYG SC (09:00)
[2017-09-16] MEDS ORDERED: GLUCOSE GEL 15 GRAM TUBE BUCCAL (09:00)
[2017-09-16] MEDS ORDERED: COLLAGENASE 30 GM TUBE TOP (09:00)
[2017-09-16] MEDS ORDERED: GLUCOSE GEL 15 GRAM TUBE PO ×2 (09:00)
[2017-09-16] MEDS ORDERED: GLUCAGON 1 MG INJ IM (09:00)
[2017-09-16] MEDS: NYSTATIN 15 GM POWDER BTL TOP ×4 (10:37→21:36)
[2017-09-16] MEDS: COLLAGENASE 5 GM (UD JAR) TOP (10:37)
[2017-09-16] MEDS: MULTIVITAMINS 30 ML CUP GTB (10:38)
[2017-09-16] MEDS: BISACODYL 10 MG SUPP PR (10:38)
[2017-09-16] MEDS: ASCORBIC ACID 500 MG TAB PEG (10:38)
[2017-09-16] MEDS: DOCUSATE SODIUM 10 MG/ML (10ML CUP) PEG ×2 (10:38→21:33)
[2017-09-16] MEDS: FERROUS SULFATE 60 MG/ML 5ML CUP GTB ×2 (10:38→21:27)
[2017-09-16] MEDS: FLUCONAZOLE 100 MG TAB GTB (10:39)
[2017-09-16] MEDS: BUSPIRONE 5 MG TAB GTB ×2 (10:39→21:26)
[2017-09-16] MEDS: LISINOPRIL 10 MG TAB GTB (10:42)
[2017-09-16] MEDS: AMLODIPINE 5 MG TAB PEG (10:42)
[2017-09-16] MEDS: HYDROCODONE/APAP (5/325) TAB PEG (10:48)
[2017-09-16] MEDS: METHADONE 10 MG TAB GTB ×2 (10:48→21:32)
[2017-09-16] MEDS: FAMOTIDINE 20 MG INJ IV ×2 (10:49→21:32)
[2017-09-16] MEDS: CA CARBONATE (250 MG/ML) 5ML CUP PEG ×2 (10:49→21:33)
[2017-09-16] MEDS: CEFEPIME 2GM/50 ML (PMX) 50 ML IVPB ×2 (11:03→21:35)
[2017-09-16] MEDS: ENOXAPARIN 30 MG/0.3 ML SYG SC (11:21)
[2017-09-16] MEDS: INSULIN DETEMIR [LEVEMIR] 3ML CART SC ×2 (11:22→21:46)
[2017-09-16] MEDS: MAGNESIUM HYDROXIDE 30ML CUP PEG (11:24)
[2017-09-16] MEDS: INSULIN ASPART [NOVOLOG] 3 ML PEN SC ×2 (12:20→17:47)
[2017-09-16] MEDS: MONTELUKAST 10 MG TAB PEG (21:34)
[2017-09-17] MEDS: INSULIN ASPART [NOVOLOG] 3 ML PEN SC ×4 (01:38→18:00)
[2017-09-17] MEDS: ACCU-CHEK XX (02:00)
[2017-09-17 06:22] LABS: ADD MAN DIFF? NO
[2017-09-17 06:33] LABS: WHITE BLOOD COUNT 19.5 10^3/ul (4.8-10.8)
[2017-09-17 06:33] LABS: BASOPHIL # 0.1 10^3/ul (0.0-0.1); BASOPHILS % 0.4 % (0.0-2.0); EOSINOPHILS # 0.3 10^3/ul (0.0-0.5); EOSINOPHILS % 1.3 % (0.0-7.0); HEMATOCRIT 26.2 % (37.0-47.0); HEMOGLOBIN 8.1 g/dl (12.0-16.0); LYMPHOCYTES # 1.9 10^3/ul (0.8-2.9); LYMPHOCYTES % 9.5 % (15.0-51.0); MEAN CORPUSCULAR HEMOGLOBIN 27.7 pg (29.0-33.0); MEAN CORPUSCULAR HGB CONC 30.9 g/dl (32.0-37.0); MEAN CORPUSCULAR VOLUME 89.7 fl (82.0-101.0); MEAN PLATELET VOLUME 10.3 fl (7.4-10.4); MONOCYTE # 1.3 10^3/ul (0.3-0.9); MONOCYTES % 6.8 % (0.0-11.0); NEUTROPHIL # 15.9 10^3/ul (1.6-7.5); NEUTROPHILS % 81.3 % (39.0-77.0); PLATELET COUNT 206 10^3/UL (140-415); RED BLOOD COUNT 2.92 10^6/ul (4.20-5.40); RED CELL DISTRIBUTION WIDTH 17.9 % (11.5-14.5)
[2017-09-17 06:55] LABS: ALANINE AMINOTRANSFERASE 22 IU/L (13-69); ALBUMIN 2.3 g/dl (3.3-4.9); ALBUMIN/GLOBULIN RATIO 0.67; ALKALINE PHOSPHATASE 105 IU/L (42-121); ANION GAP 5 (8-16); ASPARTATE AMINO TRANSFERASE 50 IU/L (15-46); BILIRUBIN,INDIRECT 0.1 mg/dl (0-1.1); BILIRUBIN,TOTAL 0.1 mg/dl (0.2-1.3); BLOOD UREA NITROGEN 34 mg/dl (7-20); CARBON DIOXIDE 26 mmol/L (21-31); CHLORIDE 109 mmol/L (97-110); GLUCOSE 181 mg/dl (70-220); POTASSIUM 4.9 mmol/L (3.5-5.1); SODIUM 135 mmol/L (135-144); TOTAL PROTEIN 5.7 g/dl (6.1-8.1)
[2017-09-17] MEDS: SOD CHLORIDE 0.9% 1,000 ML IV (06:59)
[2017-09-17] MEDS: DOCUSATE SODIUM 10 MG/ML (10ML CUP) PEG ×2 (09:03→21:24)
[2017-09-17] MEDS: MAGNESIUM HYDROXIDE 30ML CUP PEG (09:03)
[2017-09-17] MEDS: FERROUS SULFATE 60 MG/ML 5ML CUP GTB ×2 (09:03→21:23)
[2017-09-17] MEDS: COLLAGENASE 5 GM (UD JAR) TOP (09:03)
[2017-09-17] MEDS: MULTIVITAMINS 30 ML CUP GTB (09:03)
[2017-09-17] MEDS: BISACODYL 10 MG SUPP PR (09:03)
[2017-09-17] MEDS: FLUCONAZOLE 100 MG TAB GTB (09:04)
[2017-09-17] MEDS: FAMOTIDINE 20 MG INJ IV ×2 (09:04→21:24)
[2017-09-17] MEDS: CA CARBONATE (250 MG/ML) 5ML CUP PEG ×2 (09:04→21:24)
[2017-09-17] MEDS: ASCORBIC ACID 500 MG TAB PEG (09:04)
[2017-09-17] MEDS: BUSPIRONE 5 MG TAB GTB ×2 (09:05→21:22)
[2017-09-17] MEDS: METHADONE 10 MG TAB GTB ×2 (09:05→21:23)
[2017-09-17] MEDS: LISINOPRIL 10 MG TAB GTB (09:06)
[2017-09-17] MEDS: AMLODIPINE 5 MG TAB PEG (09:06)
[2017-09-17] MEDS: NYSTATIN 15 GM POWDER BTL TOP ×4 (09:06→21:25)
[2017-09-17] MEDS: INSULIN DETEMIR [LEVEMIR] 3ML CART SC ×2 (09:19→21:36)
[2017-09-17] MEDS: ENOXAPARIN 30 MG/0.3 ML SYG SC (09:20)
[2017-09-17] MEDS: HYDROCODONE/APAP (5/325) TAB PEG (09:22)
[2017-09-17] MEDS: CEFEPIME 2GM/50 ML (PMX) 50 ML IVPB ×2 (09:31→21:24)
[2017-09-17] MEDS ORDERED: COLLAGENASE 5 GM (UD JAR) TOP (18:30)
[2017-09-17] MEDS ORDERED: PENDING SANTYL ORDER FOR WOUND CARE XX (18:30)
[2017-09-17] MEDS: MONTELUKAST 10 MG TAB PEG (21:24)
[2017-09-18] MEDS: SOD CHLORIDE 0.9% 1,000 ML IV ×3 (00:16→20:29)
[2017-09-18] MEDS: ACCU-CHEK XX (02:00)
[2017-09-18] MEDS: INSULIN ASPART [NOVOLOG] 3 ML PEN SC ×4 (06:00→18:12)
[2017-09-18 06:52] LABS: ADD MAN DIFF? NO
[2017-09-18 07:03] LABS: BASOPHIL # 0.1 10^3/ul (0.0-0.1); BASOPHILS % 0.5 % (0.0-2.0); EOSINOPHILS # 0.4 10^3/ul (0.0-0.5); EOSINOPHILS % 2.6 % (0.0-7.0); HEMATOCRIT 25.2 % (37.0-47.0); HEMOGLOBIN 7.9 g/dl (12.0-16.0); LYMPHOCYTES % 13.5 % (15.0-51.0); MEAN CORPUSCULAR HEMOGLOBIN 27.7 pg (29.0-33.0); MEAN CORPUSCULAR HGB CONC 31.3 g/dl (32.0-37.0); MEAN CORPUSCULAR VOLUME 88.4 fl (82.0-101.0); MEAN PLATELET VOLUME 10.6 fl (7.4-10.4); MONOCYTE # 0.9 10^3/ul (0.3-0.9); MONOCYTES % 6.3 % (0.0-11.0); NEUTROPHIL # 11.4 10^3/ul (1.6-7.5); NEUTROPHILS % 76.4 % (39.0-77.0); PLATELET COUNT 187 10^3/UL (140-415); RED BLOOD COUNT 2.85 10^6/ul (4.20-5.40); RED CELL DISTRIBUTION WIDTH 17.7 % (11.5-14.5)
[2017-09-18 07:03] LABS: WHITE BLOOD COUNT 14.9 10^3/ul (4.8-10.8)
[2017-09-18 07:23] LABS: ANION GAP 10 (8-16); BLOOD UREA NITROGEN 35 mg/dl (7-20); CARBON DIOXIDE 22 mmol/L (21-31); CHLORIDE 110 mmol/L (97-110); GLUCOSE 167 mg/dl (70-220); POTASSIUM 4.9 mmol/L (3.5-5.1); SODIUM 137 mmol/L (135-144)
[2017-09-18] MEDS: CEFEPIME 2GM/50 ML (PMX) 50 ML IVPB ×2 (09:40→21:29)
[2017-09-18] MEDS: DOCUSATE SODIUM 10 MG/ML (10ML CUP) PEG ×2 (09:42→21:29)
[2017-09-18] MEDS: METHADONE 10 MG TAB GTB ×2 (09:43→21:28)
[2017-09-18] MEDS: MULTIVITAMINS 30 ML CUP GTB (09:43)
[2017-09-18] MEDS: HYDROCODONE/APAP (5/325) TAB PEG (09:43)
[2017-09-18] MEDS: ASCORBIC ACID 500 MG TAB PEG (09:43)
[2017-09-18] MEDS: BUSPIRONE 5 MG TAB GTB ×2 (09:45→21:29)
[2017-09-18] MEDS: FLUCONAZOLE 100 MG TAB GTB (09:45)
[2017-09-18] MEDS: CA CARBONATE (250 MG/ML) 5ML CUP PEG ×2 (09:46→21:29)
[2017-09-18] MEDS: MAGNESIUM HYDROXIDE 30ML CUP PEG (09:46)
[2017-09-18] MEDS: FERROUS SULFATE 60 MG/ML 5ML CUP GTB ×2 (09:46→21:29)
[2017-09-18] MEDS: FAMOTIDINE 20 MG INJ IV ×2 (09:46→21:30)
[2017-09-18] MEDS: COLLAGENASE 5 GM (UD JAR) TOP (09:47)
[2017-09-18] MEDS: BISACODYL 10 MG SUPP PR (09:47)
[2017-09-18] MEDS: ENOXAPARIN 30 MG/0.3 ML SYG SC (09:56)
[2017-09-18] MEDS: INSULIN DETEMIR [LEVEMIR] 3ML CART SC ×2 (09:56→21:51)
[2017-09-18] MEDS: LISINOPRIL 10 MG TAB GTB (09:59)
[2017-09-18] MEDS: NYSTATIN 15 GM POWDER BTL TOP ×4 (09:59→21:30)
[2017-09-18] MEDS: AMLODIPINE 5 MG TAB PEG (09:59)
[2017-09-18] MEDS: LIDOCAINE 1% (MPF) 5 ML VIAL SC ×2 (11:30→15:58)
[2017-09-18] MEDS ORDERED: VANCOMYCIN IV PER PHARMACY XX (11:30)
[2017-09-18] MEDS: VANCOMYCIN 1.25 GM in SOD CHLORIDE 0.9% 250 ML IVPB (14:07)
[2017-09-18] MEDS: MONTELUKAST 10 MG TAB PEG (21:29)
[2017-09-19] MEDS: VANCOMYCIN 1 GM 250 ML IVPB (02:00)
[2017-09-19] MEDS: ACCU-CHEK XX (02:00)
[2017-09-19] MEDS: INSULIN ASPART [NOVOLOG] 3 ML PEN SC ×4 (06:00→17:03)
[2017-09-19] MEDS: CEFEPIME 2GM/50 ML (PMX) 50 ML IVPB ×2 (08:17→21:22)
[2017-09-19] MEDS: FAMOTIDINE 20 MG INJ IV ×2 (08:20→21:23)
[2017-09-19] MEDS: MAGNESIUM HYDROXIDE 30ML CUP PEG (08:21)
[2017-09-19] MEDS: DOCUSATE SODIUM 10 MG/ML (10ML CUP) PEG ×2 (08:21→21:23)
[2017-09-19] MEDS: LISINOPRIL 10 MG TAB GTB (08:22)
[2017-09-19] MEDS: FERROUS SULFATE 60 MG/ML 5ML CUP GTB ×2 (08:22→21:23)
[2017-09-19] MEDS: HYDROCODONE/APAP (5/325) TAB PEG (08:22)
[2017-09-19] MEDS: MULTIVITAMINS 30 ML CUP GTB (08:22)
[2017-09-19] MEDS: AMLODIPINE 5 MG TAB PEG (08:22)
[2017-09-19] MEDS: BUSPIRONE 5 MG TAB GTB (08:22)
[2017-09-19] MEDS: FLUCONAZOLE 100 MG TAB GTB (08:22)
[2017-09-19] MEDS: ASCORBIC ACID 500 MG TAB PEG (08:22)
[2017-09-19] MEDS: CA CARBONATE (250 MG/ML) 5ML CUP PEG ×2 (08:22→21:23)
[2017-09-19] MEDS: NYSTATIN 15 GM POWDER BTL TOP ×4 (08:23→21:24)
[2017-09-19] MEDS: COLLAGENASE 5 GM (UD JAR) TOP (08:23)
[2017-09-19] MEDS: METHADONE 10 MG TAB GTB ×2 (08:23→21:25)
[2017-09-19] MEDS: BISACODYL 10 MG SUPP PR (08:23)
[2017-09-19] MEDS: ENOXAPARIN 30 MG/0.3 ML SYG SC (08:34)
[2017-09-19] MEDS: INSULIN DETEMIR [LEVEMIR] 3ML CART SC ×2 (08:34→21:00)
[2017-09-19 11:08] LABS: ADD MAN DIFF? NO
[2017-09-19 11:11] LABS: BASOPHIL # 0.1 10^3/ul (0.0-0.1); BASOPHILS % 0.6 % (0.0-2.0); EOSINOPHILS # 0.5 10^3/ul (0.0-0.5); EOSINOPHILS % 3.8 % (0.0-7.0); HEMATOCRIT 26.3 % (37.0-47.0); LYMPHOCYTES # 2.4 10^3/ul (0.8-2.9); LYMPHOCYTES % 17.3 % (15.0-51.0); MEAN CORPUSCULAR HEMOGLOBIN 27.3 pg (29.0-33.0); MEAN CORPUSCULAR HGB CONC 30.4 g/dl (32.0-37.0); MEAN CORPUSCULAR VOLUME 89.8 fl (82.0-101.0); MEAN PLATELET VOLUME 10.2 fl (7.4-10.4); MONOCYTE # 0.8 10^3/ul (0.3-0.9); MONOCYTES % 6.1 % (0.0-11.0); NEUTROPHIL # 9.8 10^3/ul (1.6-7.5); NEUTROPHILS % 71.1 % (39.0-77.0); PLATELET COUNT 204 10^3/UL (140-415); RED BLOOD COUNT 2.93 10^6/ul (4.20-5.40); RED CELL DISTRIBUTION WIDTH 17.4 % (11.5-14.5)
[2017-09-19 11:11] LABS: WHITE BLOOD COUNT 13.8 10^3/ul (4.8-10.8)
[2017-09-19 11:34] LABS: ANION GAP 12 (8-16); BLOOD UREA NITROGEN 31 mg/dl (7-20); CALCIUM 9.2 mg/dl (8.4-10.2); CARBON DIOXIDE 24 mmol/L (21-31); CHLORIDE 111 mmol/L (97-110); CREATININE 0.48 mg/dl (0.44-1.00); GLUCOSE 81 mg/dl (70-220); POTASSIUM 4.6 mmol/L (3.5-5.1); SODIUM 142 mmol/L (135-144)
[2017-09-19] MEDS ORDERED: EPOETIN ALFA (NESRD) 3,000 UNITS/ML VIAL SC (12:30)
[2017-09-19] MEDS: EPOETIN 10000 UNITS/ML (NON ESRD/NON ONCOLOGY) SC (14:00)
[2017-09-19] MEDS ORDERED: morphine LIQ (10 MG/5 ML) CUP GTB (15:32)
[2017-09-19] MEDS: SOD CHLORIDE 0.9% 1,000 ML IV (16:29)
[2017-09-19] MEDS: DEXTROSE 50% 50 ML SYRINGE IV ×3 (16:46→23:01)
[2017-09-19] MEDS: BALSAM PERU/CASTOR OIL 60 GM TUBE TOP (21:22)
[2017-09-19] MEDS: MONTELUKAST 10 MG TAB PEG (21:23)
[2017-09-20] MEDS: DEXTROSE 5%-0.9% NACL 1,000 ML IV ×2 (00:44→19:30)
[2017-09-20] MEDS: ACCU-CHEK XX (02:00)
[2017-09-20] MEDS: DEXTROSE 50% 50 ML SYRINGE IV ×2 (02:45→02:49)
[2017-09-20] MEDS: INSULIN ASPART [NOVOLOG] 3 ML PEN SC ×5 (06:00→22:09)
[2017-09-20 08:02] LABS: ADD MAN DIFF? NO
[2017-09-20 08:05] LABS: WHITE BLOOD COUNT 10.1 10^3/ul (4.8-10.8)
[2017-09-20 08:05] LABS: BASOPHIL # 0.1 10^3/ul (0.0-0.1); BASOPHILS % 0.7 % (0.0-2.0); EOSINOPHILS # 0.5 10^3/ul (0.0-0.5); EOSINOPHILS % 4.8 % (0.0-7.0); HEMATOCRIT 24.5 % (37.0-47.0); HEMOGLOBIN 7.4 g/dl (12.0-16.0); LYMPHOCYTES # 2.3 10^3/ul (0.8-2.9); LYMPHOCYTES % 22.8 % (15.0-51.0); MEAN CORPUSCULAR HEMOGLOBIN 27.4 pg (29.0-33.0); MEAN CORPUSCULAR HGB CONC 30.2 g/dl (32.0-37.0); MEAN CORPUSCULAR VOLUME 90.7 fl (82.0-101.0); MEAN PLATELET VOLUME 10.4 fl (7.4-10.4); MONOCYTE # 0.7 10^3/ul (0.3-0.9); MONOCYTES % 6.8 % (0.0-11.0); NEUTROPHIL # 6.4 10^3/ul (1.6-7.5); NEUTROPHILS % 63.4 % (39.0-77.0); PLATELET COUNT 187 10^3/UL (140-415); RED CELL DISTRIBUTION WIDTH 17.6 % (11.5-14.5)
[2017-09-20] MEDS: INSULIN DETEMIR [LEVEMIR] 3ML CART SC ×2 (09:00→22:09)
[2017-09-20] MEDS: LISINOPRIL 10 MG TAB GTB (09:00)
[2017-09-20] MEDS: FLUCONAZOLE 100 MG TAB GTB (09:58)
[2017-09-20] MEDS: NYSTATIN 15 GM POWDER BTL TOP ×4 (09:59→21:58)
[2017-09-20] MEDS: ASCORBIC ACID 500 MG TAB PEG (09:59)
[2017-09-20] MEDS: FERROUS SULFATE 60 MG/ML 5ML CUP GTB ×2 (09:59→21:58)
[2017-09-20] MEDS: COLLAGENASE 5 GM (UD JAR) TOP (09:59)
[2017-09-20] MEDS: BALSAM PERU/CASTOR OIL 60 GM TUBE TOP ×2 (09:59→22:01)
[2017-09-20] MEDS: FAMOTIDINE 20 MG INJ IV ×2 (09:59→21:59)
[2017-09-20] MEDS: MAGNESIUM HYDROXIDE 30ML CUP PEG (09:59)
[2017-09-20] MEDS: BISACODYL 10 MG SUPP PR (09:59)
[2017-09-20] MEDS: MULTIVITAMINS 30 ML CUP GTB (09:59)
[2017-09-20] MEDS: CA CARBONATE (250 MG/ML) 5ML CUP PEG ×2 (09:59→21:59)
[2017-09-20] MEDS: DOCUSATE SODIUM 10 MG/ML (10ML CUP) PEG ×2 (09:59→22:00)
[2017-09-20] MEDS: ENOXAPARIN 30 MG/0.3 ML SYG SC (10:01)
[2017-09-20] MEDS: CEFEPIME 2GM/50 ML (PMX) 50 ML IVPB ×2 (10:18→22:18)
[2017-09-20] MEDS: HYDROCODONE/APAP (5/325) TAB PEG (11:03)
[2017-09-20] MEDS: ALBUTEROL/IPRATROPIUM (NEB) 3 ML AMP INH (11:51)
[2017-09-20] MEDS: EPOETIN ALFA (NESRD) 3,000 UNITS/ML VIAL SC (16:30)
[2017-09-20] MEDS: KETOROLAC 15 MG INJ IV (16:52)
[2017-09-20] MEDS: EPOETIN 10000 UNITS/ML (NON ESRD/NON ONCOLOGY) SC (17:04)
[2017-09-20] MEDS: MONTELUKAST 10 MG TAB PEG (21:59)
[2017-09-20] MEDS: METHADONE 10 MG TAB GTB (22:10)
[2017-09-21] MEDS: ACCU-CHEK XX (02:00)
[2017-09-21] MEDS: INSULIN ASPART [NOVOLOG] 3 ML PEN SC ×3 (06:57→18:14)
[2017-09-21] MEDS: ENOXAPARIN 30 MG/0.3 ML SYG SC (08:32)
[2017-09-21] MEDS: INSULIN DETEMIR [LEVEMIR] 3ML CART SC ×2 (08:33→20:20)
[2017-09-21] MEDS: LISINOPRIL 10 MG TAB GTB (08:34)
[2017-09-21] MEDS: ASCORBIC ACID 500 MG TAB PEG (08:34)
[2017-09-21] MEDS: FLUCONAZOLE 100 MG TAB GTB (08:35)
[2017-09-21] MEDS: FAMOTIDINE 20 MG INJ IV ×2 (08:35→20:04)
[2017-09-21] MEDS: DOCUSATE SODIUM 10 MG/ML (10ML CUP) PEG ×2 (08:35→20:03)
[2017-09-21] MEDS: FERROUS SULFATE 60 MG/ML 5ML CUP GTB ×2 (08:35→20:02)
[2017-09-21] MEDS: COLLAGENASE 5 GM (UD JAR) TOP (08:35)
[2017-09-21] MEDS: MAGNESIUM HYDROXIDE 30ML CUP PEG (08:35)
[2017-09-21] MEDS: CA CARBONATE (250 MG/ML) 5ML CUP PEG ×2 (08:36→20:02)
[2017-09-21] MEDS: CEFEPIME 2GM/50 ML (PMX) 50 ML IVPB ×2 (08:37→20:14)
[2017-09-21] MEDS: MULTIVITAMINS 30 ML CUP GTB (08:37)
[2017-09-21] MEDS: NYSTATIN 15 GM POWDER BTL TOP ×4 (08:38→20:09)
[2017-09-21] MEDS: BALSAM PERU/CASTOR OIL 60 GM TUBE TOP ×2 (08:55→20:10)
[2017-09-21 08:56] LABS: ADD MAN DIFF? NO
[2017-09-21] MEDS: BISACODYL 10 MG SUPP PR (08:56)
[2017-09-21 09:00] LABS: BASOPHIL # 0.1 10^3/ul (0.0-0.1); BASOPHILS % 0.7 % (0.0-2.0); EOSINOPHILS # 0.6 10^3/ul (0.0-0.5); EOSINOPHILS % 6.3 % (0.0-7.0); HEMATOCRIT 25.2 % (37.0-47.0); HEMOGLOBIN 7.7 g/dl (12.0-16.0); LYMPHOCYTES # 2.4 10^3/ul (0.8-2.9); LYMPHOCYTES % 25.1 % (15.0-51.0); MEAN CORPUSCULAR HEMOGLOBIN 27.5 pg (29.0-33.0); MEAN CORPUSCULAR HGB CONC 30.6 g/dl (32.0-37.0); MEAN PLATELET VOLUME 10.4 fl (7.4-10.4); MONOCYTE # 0.8 10^3/ul (0.3-0.9); MONOCYTES % 7.7 % (0.0-11.0); NEUTROPHIL # 5.6 10^3/ul (1.6-7.5); NEUTROPHILS % 57.6 % (39.0-77.0); PLATELET COUNT 187 10^3/UL (140-415); RED CELL DISTRIBUTION WIDTH 17.5 % (11.5-14.5)
[2017-09-21 09:00] LABS: WHITE BLOOD COUNT 9.7 10^3/ul (4.8-10.8)
[2017-09-21 09:37] LABS: ANION GAP 10 (8-16); BLOOD UREA NITROGEN 28 mg/dl (7-20); CALCIUM 9.1 mg/dl (8.4-10.2); CARBON DIOXIDE 27 mmol/L (21-31); CHLORIDE 111 mmol/L (97-110); CREATININE 0.45 mg/dl (0.44-1.00); GLUCOSE 169 mg/dl (70-220); POTASSIUM 5.1 mmol/L (3.5-5.1); SODIUM 143 mmol/L (135-144)
[2017-09-21] MEDS: KETOROLAC 15 MG INJ IV ×2 (10:41→18:02)
[2017-09-21] MEDS: DEXTROSE 5%-0.9% NACL 1,000 ML IV (18:02)
[2017-09-21] MEDS: METHADONE 10 MG TAB GTB (20:03)
[2017-09-21] MEDS: MONTELUKAST 10 MG TAB PEG (20:04)
[2017-09-22] MEDS: ACCU-CHEK XX (02:00)
[2017-09-22] MEDS: KETOROLAC 15 MG INJ IV ×3 (02:30→18:50)
[2017-09-22] MEDS: INSULIN ASPART [NOVOLOG] 3 ML PEN SC ×4 (05:04→17:20)
[2017-09-22 08:00] LABS: ADD MAN DIFF? NO
[2017-09-22 08:09] LABS: BASOPHIL # 0.1 10^3/ul (0.0-0.1); BASOPHILS % 0.5 % (0.0-2.0); EOSINOPHILS # 0.7 10^3/ul (0.0-0.5); EOSINOPHILS % 6.2 % (0.0-7.0); LYMPHOCYTES # 2.8 10^3/ul (0.8-2.9); LYMPHOCYTES % 24.9 % (15.0-51.0); MEAN CORPUSCULAR HEMOGLOBIN 27.8 pg (29.0-33.0); MEAN CORPUSCULAR HGB CONC 30.8 g/dl (32.0-37.0); MEAN CORPUSCULAR VOLUME 90.3 fl (82.0-101.0); MEAN PLATELET VOLUME 10.5 fl (7.4-10.4); MONOCYTE # 0.9 10^3/ul (0.3-0.9); MONOCYTES % 7.8 % (0.0-11.0); NEUTROPHIL # 6.3 10^3/ul (1.6-7.5); NEUTROPHILS % 56.7 % (39.0-77.0); PLATELET COUNT 205 10^3/UL (140-415); RED BLOOD COUNT 2.88 10^6/ul (4.20-5.40); RED CELL DISTRIBUTION WIDTH 17.6 % (11.5-14.5)
[2017-09-22] MEDS: DOCUSATE SODIUM 10 MG/ML (10ML CUP) PEG ×2 (08:30→20:01)
[2017-09-22] MEDS: CA CARBONATE (250 MG/ML) 5ML CUP PEG ×2 (08:30→20:02)
[2017-09-22] MEDS: MAGNESIUM HYDROXIDE 30ML CUP PEG (08:30)
[2017-09-22] MEDS: FERROUS SULFATE 60 MG/ML 5ML CUP GTB ×2 (08:30→20:02)
[2017-09-22] MEDS: COLLAGENASE 5 GM (UD JAR) TOP (08:30)
[2017-09-22] MEDS: MULTIVITAMINS 30 ML CUP GTB (08:30)
[2017-09-22] MEDS: FAMOTIDINE 20 MG INJ IV ×2 (08:30→20:00)
[2017-09-22 08:31] LABS: ANION GAP 8 (8-16); BLOOD UREA NITROGEN 33 mg/dl (7-20); CALCIUM 9.2 mg/dl (8.4-10.2); CARBON DIOXIDE 28 mmol/L (21-31); CHLORIDE 110 mmol/L (97-110); CREATININE 0.42 mg/dl (0.44-1.00); GLUCOSE 99 mg/dl (70-220); POTASSIUM 4.8 mmol/L (3.5-5.1); SODIUM 141 mmol/L (135-144)
[2017-09-22] MEDS: BISACODYL 10 MG SUPP PR (08:31)
[2017-09-22] MEDS: FLUCONAZOLE 100 MG TAB GTB (08:31)
[2017-09-22] MEDS: CEFEPIME 2GM/50 ML (PMX) 50 ML IVPB ×2 (08:31→20:02)
[2017-09-22] MEDS: ASCORBIC ACID 500 MG TAB PEG (08:31)
[2017-09-22] MEDS: LISINOPRIL 10 MG TAB GTB (08:31)
[2017-09-22] MEDS: NYSTATIN 15 GM POWDER BTL TOP ×4 (08:32→20:03)
[2017-09-22] MEDS: INSULIN DETEMIR [LEVEMIR] 3ML CART SC ×2 (08:49→20:14)
[2017-09-22] MEDS: ENOXAPARIN 30 MG/0.3 ML SYG SC (08:50)
[2017-09-22] MEDS: BALSAM PERU/CASTOR OIL 60 GM TUBE TOP ×2 (08:51→20:05)
[2017-09-22] MEDS: DEXTROSE 5%-0.9% NACL 1,000 ML IV (16:29)
[2017-09-22] MEDS: METHADONE 10 MG TAB GTB (20:00)
[2017-09-22] MEDS: MONTELUKAST 10 MG TAB PEG (20:03)
[2017-09-23] MEDS: HYDROCODONE/APAP (5/325) TAB PEG (01:24)
[2017-09-23] MEDS: ACCU-CHEK XX (02:00)
[2017-09-23] MEDS: INSULIN ASPART [NOVOLOG] 3 ML PEN SC ×4 (05:05→17:13)
[2017-09-23 07:07] LABS: ADD MAN DIFF? NO
[2017-09-23 07:18] LABS: WHITE BLOOD COUNT 12.9 10^3/ul (4.8-10.8)
[2017-09-23 07:18] LABS: BASOPHIL # 0.1 10^3/ul (0.0-0.1); BASOPHILS % 0.8 % (0.0-2.0); EOSINOPHILS # 0.7 10^3/ul (0.0-0.5); EOSINOPHILS % 5.4 % (0.0-7.0); HEMATOCRIT 27.3 % (37.0-47.0); HEMOGLOBIN 8.4 g/dl (12.0-16.0); LYMPHOCYTES # 2.5 10^3/ul (0.8-2.9); MEAN CORPUSCULAR HEMOGLOBIN 27.6 pg (29.0-33.0); MEAN CORPUSCULAR HGB CONC 30.8 g/dl (32.0-37.0); MEAN CORPUSCULAR VOLUME 89.8 fl (82.0-101.0); MEAN PLATELET VOLUME 10.4 fl (7.4-10.4); MONOCYTES % 7.8 % (0.0-11.0); NEUTROPHIL # 8.2 10^3/ul (1.6-7.5); NEUTROPHILS % 63.8 % (39.0-77.0); PLATELET COUNT 223 10^3/UL (140-415); RED BLOOD COUNT 3.04 10^6/ul (4.20-5.40); RED CELL DISTRIBUTION WIDTH 17.7 % (11.5-14.5)
[2017-09-23] MEDS: DEXTROSE 5%-0.9% NACL 1,000 ML IV ×2 (07:30→18:28)
[2017-09-23] MEDS: FERROUS SULFATE 60 MG/ML 5ML CUP GTB ×2 (08:26→20:12)
[2017-09-23] MEDS: FLUCONAZOLE 100 MG TAB GTB (08:26)
[2017-09-23] MEDS: CA CARBONATE (250 MG/ML) 5ML CUP PEG ×2 (08:26→20:14)
[2017-09-23] MEDS: MAGNESIUM HYDROXIDE 30ML CUP PEG (08:26)
[2017-09-23] MEDS: BISACODYL 10 MG SUPP PR (08:26)
[2017-09-23] MEDS: ASCORBIC ACID 500 MG TAB PEG (08:26)
[2017-09-23] MEDS: MULTIVITAMINS 30 ML CUP GTB (08:26)
[2017-09-23] MEDS: DOCUSATE SODIUM 10 MG/ML (10ML CUP) PEG ×2 (08:26→21:27)
[2017-09-23] MEDS: LISINOPRIL 10 MG TAB GTB (08:27)
[2017-09-23] MEDS: FAMOTIDINE 20 MG INJ IV ×2 (08:27→20:12)
[2017-09-23] MEDS: ENOXAPARIN 30 MG/0.3 ML SYG SC (08:41)
[2017-09-23] MEDS: INSULIN DETEMIR [LEVEMIR] 3ML CART SC ×2 (08:41→22:12)
[2017-09-23] MEDS: CEFEPIME 2GM/50 ML (PMX) 50 ML IVPB ×2 (08:44→20:12)
[2017-09-23] MEDS: BALSAM PERU/CASTOR OIL 60 GM TUBE TOP ×2 (08:45→20:15)
[2017-09-23] MEDS: KETOROLAC 15 MG INJ IV ×3 (08:45→20:12)
[2017-09-23] MEDS: COLLAGENASE 5 GM (UD JAR) TOP (08:45)
[2017-09-23] MEDS: NYSTATIN 15 GM POWDER BTL TOP ×4 (08:45→20:14)
[2017-09-23] MEDS: MONTELUKAST 10 MG TAB PEG (20:14)
[2017-09-23] MEDS: [UNRECOGNIZED DRUG - OTHER] PEG (21:00)
[2017-09-23] MEDS: ONDANSETRON 4 MG TAB PEG (21:27)
[2017-09-23] MEDS: METHADONE 10 MG TAB GTB (21:27)
[2017-09-24] MEDS: ACCU-CHEK XX (02:30)
[2017-09-24] MEDS: INSULIN ASPART [NOVOLOG] 3 ML PEN SC ×4 (06:00→18:00)
[2017-09-24] MEDS: MAGNESIUM HYDROXIDE 30ML CUP PEG (08:51)
[2017-09-24] MEDS: DOCUSATE SODIUM 10 MG/ML (10ML CUP) PEG ×2 (08:52→20:07)
[2017-09-24] MEDS: FERROUS SULFATE 60 MG/ML 5ML CUP GTB ×2 (08:52→20:06)
[2017-09-24] MEDS: FAMOTIDINE 20 MG INJ IV ×2 (08:52→20:06)
[2017-09-24] MEDS: CA CARBONATE (250 MG/ML) 5ML CUP PEG ×2 (08:52→20:07)
[2017-09-24] MEDS: MULTIVITAMINS 30 ML CUP GTB (08:55)
[2017-09-24] MEDS: BISACODYL 10 MG SUPP PR (08:55)
[2017-09-24] MEDS: ASCORBIC ACID 500 MG TAB PEG (08:55)
[2017-09-24] MEDS: FLUCONAZOLE 100 MG TAB GTB (08:55)
[2017-09-24] MEDS: KETOROLAC 15 MG INJ IV ×3 (08:55→20:07)
[2017-09-24] MEDS: LISINOPRIL 10 MG TAB GTB (08:57)
[2017-09-24] MEDS: COLLAGENASE 5 GM (UD JAR) TOP ×2 (08:59→09:00)
[2017-09-24] MEDS: NYSTATIN 15 GM POWDER BTL TOP ×4 (08:59→20:09)
[2017-09-24] MEDS: BALSAM PERU/CASTOR OIL 60 GM TUBE TOP ×2 (08:59→20:09)
[2017-09-24] MEDS: INSULIN DETEMIR [LEVEMIR] 3ML CART SC ×2 (09:01→20:45)
[2017-09-24] MEDS: ENOXAPARIN 30 MG/0.3 ML SYG SC (09:02)
[2017-09-24] MEDS: CEFEPIME 2GM/50 ML (PMX) 50 ML IVPB ×2 (09:14→20:07)
[2017-09-24] MEDS: DEXTROSE 5%-0.9% NACL 1,000 ML IV (15:14)
[2017-09-24] MEDS: NITROFURANTOIN MACROCRYS 100 MG CAP PO (15:14)
[2017-09-24] MEDS: MONTELUKAST 10 MG TAB PEG (20:07)
[2017-09-24] MEDS: METHADONE 10 MG TAB GTB (22:33)
[2017-09-25] MEDS: INSULIN ASPART [NOVOLOG] 3 ML PEN SC ×4 (00:39→17:51)
[2017-09-25] MEDS: ACCU-CHEK XX (02:32)
[2017-09-25 07:38] LABS: ADD MAN DIFF? NO
[2017-09-25 07:46] LABS: BASOPHIL # 0.1 10^3/ul (0.0-0.1); BASOPHILS % 0.6 % (0.0-2.0); EOSINOPHILS # 0.6 10^3/ul (0.0-0.5); EOSINOPHILS % 5.4 % (0.0-7.0); HEMATOCRIT 26.4 % (37.0-47.0); LYMPHOCYTES # 2.4 10^3/ul (0.8-2.9); LYMPHOCYTES % 22.3 % (15.0-51.0); MEAN CORPUSCULAR HEMOGLOBIN 27.5 pg (29.0-33.0); MEAN CORPUSCULAR HGB CONC 30.3 g/dl (32.0-37.0); MEAN CORPUSCULAR VOLUME 90.7 fl (82.0-101.0); MEAN PLATELET VOLUME 10.8 fl (7.4-10.4); MONOCYTE # 1.1 10^3/ul (0.3-0.9); MONOCYTES % 10.3 % (0.0-11.0); NEUTROPHIL # 6.2 10^3/ul (1.6-7.5); PLATELET COUNT 222 10^3/UL (140-415); RED BLOOD COUNT 2.91 10^6/ul (4.20-5.40); RED CELL DISTRIBUTION WIDTH 18.3 % (11.5-14.5)
[2017-09-25 07:46] LABS: WHITE BLOOD COUNT 10.7 10^3/ul (4.8-10.8)
[2017-09-25 08:09] LABS: ANION GAP 6 (8-16); BLOOD UREA NITROGEN 26 mg/dl (7-20); CALCIUM 8.9 mg/dl (8.4-10.2); CARBON DIOXIDE 32 mmol/L (21-31); CHLORIDE 106 mmol/L (97-110); CREATININE 0.47 mg/dl (0.44-1.00); GLUCOSE 170 mg/dl (70-220); POTASSIUM 4.7 mmol/L (3.5-5.1); SODIUM 139 mmol/L (135-144)
[2017-09-25] MEDS: FERROUS SULFATE 60 MG/ML 5ML CUP GTB ×2 (08:10→21:03)
[2017-09-25] MEDS: ASCORBIC ACID 500 MG TAB PEG (08:10)
[2017-09-25] MEDS: CA CARBONATE (250 MG/ML) 5ML CUP PEG ×2 (08:10→22:22)
[2017-09-25] MEDS: FLUCONAZOLE 100 MG TAB GTB (08:10)
[2017-09-25] MEDS: BISACODYL 10 MG SUPP PR (08:11)
[2017-09-25] MEDS: FAMOTIDINE 20 MG INJ IV ×2 (08:11→21:03)
[2017-09-25] MEDS: COLLAGENASE 5 GM (UD JAR) TOP (08:11)
[2017-09-25] MEDS: DOCUSATE SODIUM 10 MG/ML (10ML CUP) PEG ×2 (08:11→21:03)
[2017-09-25] MEDS: ENOXAPARIN 30 MG/0.3 ML SYG SC (08:13)
[2017-09-25] MEDS: LISINOPRIL 10 MG TAB GTB (08:17)
[2017-09-25] MEDS: MULTIVITAMINS 30 ML CUP GTB (08:18)
[2017-09-25] MEDS: MAGNESIUM HYDROXIDE 30ML CUP PEG (08:18)
[2017-09-25] MEDS: BALSAM PERU/CASTOR OIL 60 GM TUBE TOP ×2 (08:19→21:04)
[2017-09-25] MEDS: KETOROLAC 15 MG INJ IV ×4 (08:23→21:03)
[2017-09-25] MEDS: NYSTATIN 15 GM POWDER BTL TOP ×4 (08:23→21:04)
[2017-09-25] MEDS: CEFEPIME 2GM/50 ML (PMX) 50 ML IVPB ×2 (08:23→21:14)
[2017-09-25] MEDS: INSULIN DETEMIR [LEVEMIR] 3ML CART SC ×2 (09:12→21:00)
[2017-09-25] MEDS ORDERED: EPOETIN ALFA (NESRD) 3,000 UNITS/ML VIAL SC (13:30)
[2017-09-25] MEDS: EPOETIN 10000 UNITS/ML (NON ESRD/NON ONCOLOGY) SC (14:53)
[2017-09-25] MEDS: DEXTROSE 5%-0.9% NACL 1,000 ML IV (19:30)
[2017-09-25] MEDS: MONTELUKAST 10 MG TAB PEG (21:03)
[2017-09-25] MEDS: NITROFURANTOIN MACROCRYS 100 MG CAP PO (21:14)
[2017-09-25] MEDS: METHADONE 10 MG TAB GTB (22:22)
[2017-09-26] MEDS: INSULIN ASPART [NOVOLOG] 3 ML PEN SC ×5 (00:38→23:49)
[2017-09-26] MEDS: KETOROLAC 15 MG INJ IV ×5 (02:39→16:45)
[2017-09-26] MEDS: ACCU-CHEK XX (02:42)
[2017-09-26 06:52] LABS: WHITE BLOOD COUNT 10.2 10^3/ul (4.8-10.8)
[2017-09-26 06:52] LABS: ADD MAN DIFF? NO; BASOPHIL # 0.1 10^3/ul (0.0-0.1); BASOPHILS % 0.7 % (0.0-2.0); EOSINOPHILS # 0.5 10^3/ul (0.0-0.5); EOSINOPHILS % 5.3 % (0.0-7.0); HEMOGLOBIN 8.3 g/dl (12.0-16.0); LYMPHOCYTES # 2.3 10^3/ul (0.8-2.9); MEAN CORPUSCULAR HEMOGLOBIN 28.2 pg (29.0-33.0); MEAN CORPUSCULAR HGB CONC 30.7 g/dl (32.0-37.0); MEAN CORPUSCULAR VOLUME 91.8 fl (82.0-101.0); MEAN PLATELET VOLUME 10.1 fl (7.4-10.4); MONOCYTE # 1.1 10^3/ul (0.3-0.9); MONOCYTES % 10.6 % (0.0-11.0); NEUTROPHIL # 5.9 10^3/ul (1.6-7.5); NEUTROPHILS % 57.9 % (39.0-77.0); PLATELET COUNT 219 10^3/UL (140-415); RED BLOOD COUNT 2.94 10^6/ul (4.20-5.40); RED CELL DISTRIBUTION WIDTH 18.3 % (11.5-14.5)
[2017-09-26] MEDS: COLLAGENASE 5 GM (UD JAR) TOP (08:02)
[2017-09-26] MEDS: BALSAM PERU/CASTOR OIL 60 GM TUBE TOP ×2 (08:02→23:55)
[2017-09-26] MEDS: MULTIVITAMINS 30 ML CUP GTB (08:03)
[2017-09-26] MEDS: BISACODYL 10 MG SUPP PR (08:03)
[2017-09-26] MEDS: LISINOPRIL 10 MG TAB GTB (08:03)
[2017-09-26] MEDS: ASCORBIC ACID 500 MG TAB PEG (08:03)
[2017-09-26] MEDS: FLUCONAZOLE 100 MG TAB GTB (08:03)
[2017-09-26] MEDS: ENOXAPARIN 30 MG/0.3 ML SYG SC (08:10)
[2017-09-26] MEDS: CA CARBONATE (250 MG/ML) 5ML CUP PEG ×2 (08:12→20:56)
[2017-09-26] MEDS: FERROUS SULFATE 60 MG/ML 5ML CUP GTB ×2 (08:12→20:54)
[2017-09-26] MEDS: MAGNESIUM HYDROXIDE 30ML CUP PEG (08:12)
[2017-09-26] MEDS: DOCUSATE SODIUM 10 MG/ML (10ML CUP) PEG ×2 (08:12→21:48)
[2017-09-26] MEDS: FAMOTIDINE 20 MG INJ IV ×2 (08:13→20:54)
[2017-09-26] MEDS: INSULIN DETEMIR [LEVEMIR] 3ML CART SC ×2 (08:17→21:25)
[2017-09-26] MEDS: CEFEPIME 2GM/50 ML (PMX) 50 ML IVPB (08:34)
[2017-09-26] MEDS: NYSTATIN 15 GM POWDER BTL TOP ×4 (10:57→23:55)
[2017-09-26] MEDS ORDERED: EPOETIN ALFA (NESRD) 3,000 UNITS/ML VIAL SC (11:30)
[2017-09-26] MEDS: EPOETIN ALFA (NESRD) 3,000 UNITS/ML VIAL SC (12:56)
[2017-09-26] MEDS: DEXTROSE 5%-0.9% NACL 1,000 ML IV (15:26)
[2017-09-26] MEDS: MONTELUKAST 10 MG TAB PEG (20:56)
[2017-09-26] MEDS: NITROFURANTOIN MACROCRYS 100 MG CAP PO (20:56)
[2017-09-26] MEDS: METHADONE 10 MG TAB GTB (21:07)
[2017-09-27] MEDS: ACCU-CHEK XX (02:00)
[2017-09-27] MEDS: KETOROLAC 15 MG INJ IV ×3 (05:43→17:37)
[2017-09-27] MEDS: INSULIN ASPART [NOVOLOG] 3 ML PEN SC ×3 (05:54→17:44)
[2017-09-27] MEDS: BALSAM PERU/CASTOR OIL 60 GM TUBE TOP ×2 (09:00→20:20)
[2017-09-27] MEDS: NYSTATIN 15 GM POWDER BTL TOP ×4 (09:00→20:19)
[2017-09-27] MEDS: LISINOPRIL 10 MG TAB GTB (09:30)
[2017-09-27] MEDS: BISACODYL 10 MG SUPP PR (09:30)
[2017-09-27] MEDS: FLUCONAZOLE 100 MG TAB GTB (09:30)
[2017-09-27] MEDS: MAGNESIUM HYDROXIDE 30ML CUP PEG (09:31)
[2017-09-27] MEDS: MULTIVITAMINS 30 ML CUP GTB (09:31)
[2017-09-27] MEDS: ASCORBIC ACID 500 MG TAB PEG (09:31)
[2017-09-27] MEDS: DOCUSATE SODIUM 10 MG/ML (10ML CUP) PEG ×2 (09:31→20:21)
[2017-09-27] MEDS: FERROUS SULFATE 60 MG/ML 5ML CUP GTB ×2 (09:31→20:21)
[2017-09-27] MEDS: COLLAGENASE 5 GM (UD JAR) TOP (09:32)
[2017-09-27 09:39] LABS: ADD MAN DIFF? NO
[2017-09-27] MEDS: FAMOTIDINE 20 MG INJ IV ×2 (09:42→20:21)
[2017-09-27 09:45] LABS: BASOPHIL # 0.1 10^3/ul (0.0-0.1); BASOPHILS % 0.6 % (0.0-2.0); EOSINOPHILS # 0.6 10^3/ul (0.0-0.5); EOSINOPHILS % 4.7 % (0.0-7.0); HEMATOCRIT 26.9 % (37.0-47.0); HEMOGLOBIN 8.3 g/dl (12.0-16.0); LYMPHOCYTES # 2.4 10^3/ul (0.8-2.9); LYMPHOCYTES % 19.1 % (15.0-51.0); MEAN CORPUSCULAR HEMOGLOBIN 28.4 pg (29.0-33.0); MEAN CORPUSCULAR HGB CONC 30.9 g/dl (32.0-37.0); MEAN CORPUSCULAR VOLUME 92.1 fl (82.0-101.0); MEAN PLATELET VOLUME 10.7 fl (7.4-10.4); MONOCYTE # 1.2 10^3/ul (0.3-0.9); MONOCYTES % 9.1 % (0.0-11.0); NEUTROPHIL # 8.1 10^3/ul (1.6-7.5); NEUTROPHILS % 63.7 % (39.0-77.0); PLATELET COUNT 245 10^3/UL (140-415); RED BLOOD COUNT 2.92 10^6/ul (4.20-5.40); RED CELL DISTRIBUTION WIDTH 18.8 % (11.5-14.5)
[2017-09-27 09:45] LABS: WHITE BLOOD COUNT 12.7 10^3/ul (4.8-10.8)
[2017-09-27] MEDS: ENOXAPARIN 30 MG/0.3 ML SYG SC (09:58)
[2017-09-27] MEDS: INSULIN DETEMIR [LEVEMIR] 3ML CART SC ×2 (09:59→20:44)
[2017-09-27 10:07] LABS: ANION GAP 10 (8-16); BLOOD UREA NITROGEN 24 mg/dl (7-20); CALCIUM 8.7 mg/dl (8.4-10.2); CARBON DIOXIDE 30 mmol/L (21-31); CHLORIDE 105 mmol/L (97-110); CREATININE 0.38 mg/dl (0.44-1.00); GLUCOSE 185 mg/dl (70-220); POTASSIUM 4.6 mmol/L (3.5-5.1); SODIUM 140 mmol/L (135-144)
[2017-09-27 11:43] LABS: ADD UMIC YES; UR ASCORBIC ACID 20 mg/dL (NEGATIVE); UR BACTERIA FEW /HPF (NONE SEEN); UR BILIRUBIN (Dip) NEGATIVE (NEGATIVE); UR BLOOD (Dip) NEGATIVE (NEGATIVE); UR BUDDING YEAST MANY /HPF (NONE SEEN); UR CLARITY CLOUDY (CLEAR); UR COLOR YELLOW (YELLOW); UR GLUCOSE (Dip) 1+ mg/dL (NEGATIVE); UR KETONES (Dip) NEGATIVE (NEGATIVE); UR LEUKOCYTE ESTERASE (Dip) NEGATIVE Leu/ul (NEGATIVE); UR MUCUS FEW /HPF (NONE SEEN); UR NITRITE (Dip) NEGATIVE (NEGATIVE); UR NONSQUAMOUS EPITHELIAL CELL 1 /HPF (NONE SEEN); UR RBC 15 /HPF (0-5); UR TOTAL PROTEIN (Dip) 1+ mg/dl (NEGATIVE); UR UROBILINOGEN (Dip) NEGATIVE (NEGATIVE); UR WBC 28 /HPF (0-5)
[2017-09-27] MEDS: CA CARBONATE (250 MG/ML) 5ML CUP PEG ×2 (12:16→20:32)
[2017-09-27] MEDS: DEXTROSE 5%-0.9% NACL 1,000 ML IV (12:17)
[2017-09-27] MEDS: DOXYCYCLINE 100 MG TAB PEG (12:29)
[2017-09-27] MEDS: NITROFURANTOIN MACROCRYS 100 MG CAP PO (20:21)
[2017-09-27] MEDS: MONTELUKAST 10 MG TAB PEG (20:21)
[2017-09-27] MEDS: METHADONE 10 MG TAB GTB (20:32)
[2017-09-28] MEDS: EPOETIN ALFA (NESRD) 3,000 UNITS/ML VIAL SC (01:55)
[2017-09-28] MEDS: ACCU-CHEK XX (02:00)
[2017-09-28] MEDS: INSULIN ASPART [NOVOLOG] 3 ML PEN SC ×4 (05:45→17:37)
[2017-09-28] MEDS: KETOROLAC 15 MG INJ IV ×3 (05:45→11:20)
[2017-09-28 06:26] LABS: ADD MAN DIFF? NO; BASOPHIL # 0.1 10^3/ul (0.0-0.1); BASOPHILS % 0.8 % (0.0-2.0); EOSINOPHILS # 0.6 10^3/ul (0.0-0.5); EOSINOPHILS % 4.3 % (0.0-7.0); HEMATOCRIT 27.6 % (37.0-47.0); HEMOGLOBIN 8.5 g/dl (12.0-16.0); LYMPHOCYTES # 3.2 10^3/ul (0.8-2.9); LYMPHOCYTES % 24.3 % (15.0-51.0); MEAN CORPUSCULAR HEMOGLOBIN 28.2 pg (29.0-33.0); MEAN CORPUSCULAR HGB CONC 30.8 g/dl (32.0-37.0); MEAN CORPUSCULAR VOLUME 91.7 fl (82.0-101.0); MEAN PLATELET VOLUME 10.4 fl (7.4-10.4); MONOCYTE # 1.3 10^3/ul (0.3-0.9); MONOCYTES % 9.8 % (0.0-11.0); NEUTROPHIL # 7.6 10^3/ul (1.6-7.5); NEUTROPHILS % 58.5 % (39.0-77.0); NUCLEATED RED BLOOD CELLS% 0.2 /100WBC (0.0-0.0); PLATELET COUNT 249 10^3/UL (140-415); RED BLOOD COUNT 3.01 10^6/ul (4.20-5.40); RED CELL DISTRIBUTION WIDTH 18.6 % (11.5-14.5)
[2017-09-28] MEDS: LISINOPRIL 10 MG TAB GTB (09:00)
[2017-09-28] MEDS: MAGNESIUM HYDROXIDE 30ML CUP PEG (09:25)
[2017-09-28] MEDS: CA CARBONATE (250 MG/ML) 5ML CUP PEG ×2 (09:25→20:45)
[2017-09-28] MEDS: DOCUSATE SODIUM 10 MG/ML (10ML CUP) PEG ×2 (09:25→20:45)
[2017-09-28] MEDS: FERROUS SULFATE 60 MG/ML 5ML CUP GTB ×2 (09:25→20:45)
[2017-09-28] MEDS: NYSTATIN 15 GM POWDER BTL TOP ×4 (09:25→20:46)
[2017-09-28] MEDS: MULTIVITAMINS 30 ML CUP GTB (09:26)
[2017-09-28] MEDS: BALSAM PERU/CASTOR OIL 60 GM TUBE TOP ×2 (09:26→20:46)
[2017-09-28] MEDS: COLLAGENASE 5 GM (UD JAR) TOP (09:26)
[2017-09-28] MEDS: BISACODYL 10 MG SUPP PR (09:26)
[2017-09-28] MEDS: DOXYCYCLINE 100 MG TAB PEG (09:26)
[2017-09-28] MEDS: ASCORBIC ACID 500 MG TAB PEG (09:26)
[2017-09-28] MEDS: FLUCONAZOLE 100 MG TAB GTB (09:26)
[2017-09-28] MEDS: INSULIN DETEMIR [LEVEMIR] 3ML CART SC ×2 (09:32→21:23)
[2017-09-28] MEDS: ENOXAPARIN 30 MG/0.3 ML SYG SC (09:32)
[2017-09-28] MEDS: FAMOTIDINE 20 MG INJ IV ×2 (09:33→20:46)
[2017-09-28] MEDS ORDERED: KETOROLAC 15 MG INJ IV (17:30)
[2017-09-28] MEDS: NITROFURANTOIN MACROCRYS 100 MG CAP PO (20:45)
[2017-09-28] MEDS: METHADONE 10 MG TAB GTB (20:45)
[2017-09-28] MEDS: MONTELUKAST 10 MG TAB PEG (20:46)
[2017-09-29] MEDS: HYDROCODONE/APAP (5/325) TAB PEG ×2 (00:10→12:53)
[2017-09-29] MEDS: ACCU-CHEK XX (02:00)
[2017-09-29] MEDS: ACETAMINOPHEN 325 MG TAB PEG (04:12)
[2017-09-29] MEDS: INSULIN ASPART [NOVOLOG] 3 ML PEN SC ×4 (06:00→18:00)
[2017-09-29] MEDS: COLLAGENASE 5 GM (UD JAR) TOP (09:09)
[2017-09-29] MEDS: FAMOTIDINE 20 MG INJ IV (09:09)
[2017-09-29] MEDS: DOXYCYCLINE 100 MG TAB PEG (09:09)
[2017-09-29] MEDS: CA CARBONATE (250 MG/ML) 5ML CUP PEG (09:10)
[2017-09-29] MEDS: BISACODYL 10 MG SUPP PR (09:10)
[2017-09-29] MEDS: MAGNESIUM HYDROXIDE 30ML CUP PEG (09:10)
[2017-09-29] MEDS: KETOROLAC 15 MG INJ IV (09:10)
[2017-09-29] MEDS: FERROUS SULFATE 60 MG/ML 5ML CUP GTB (09:11)
[2017-09-29] MEDS: DOCUSATE SODIUM 10 MG/ML (10ML CUP) PEG (09:11)
[2017-09-29] MEDS: ASCORBIC ACID 500 MG TAB PEG (09:11)
[2017-09-29] MEDS: MULTIVITAMINS 30 ML CUP GTB (09:11)
[2017-09-29] MEDS: FLUCONAZOLE 100 MG TAB GTB (09:11)
[2017-09-29] MEDS: LISINOPRIL 10 MG TAB GTB (09:11)
[2017-09-29] MEDS: BALSAM PERU/CASTOR OIL 60 GM TUBE TOP (09:13)
[2017-09-29] MEDS: NYSTATIN 15 GM POWDER BTL TOP ×3 (09:13→17:00)
[2017-09-29] MEDS: ENOXAPARIN 30 MG/0.3 ML SYG SC (09:33)
[2017-09-29] MEDS: INSULIN DETEMIR [LEVEMIR] 3ML CART SC (09:34)
[2017-09-29 10:00] LABS: ADD MAN DIFF? NO
[2017-09-29 10:06] LABS: BASOPHIL # 0.1 10^3/ul (0.0-0.1); BASOPHILS % 0.6 % (0.0-2.0); EOSINOPHILS # 0.6 10^3/ul (0.0-0.5); EOSINOPHILS % 4.9 % (0.0-7.0); HEMATOCRIT 26.9 % (37.0-47.0); HEMOGLOBIN 8.3 g/dl (12.0-16.0); LYMPHOCYTES # 2.8 10^3/ul (0.8-2.9); LYMPHOCYTES % 22.2 % (15.0-51.0); MEAN CORPUSCULAR HEMOGLOBIN 28.2 pg (29.0-33.0); MEAN CORPUSCULAR HGB CONC 30.9 g/dl (32.0-37.0); MEAN CORPUSCULAR VOLUME 91.5 fl (82.0-101.0); MEAN PLATELET VOLUME 10.5 fl (7.4-10.4); MONOCYTE # 1.3 10^3/ul (0.3-0.9); MONOCYTES % 10.5 % (0.0-11.0); NEUTROPHIL # 7.5 10^3/ul (1.6-7.5); NEUTROPHILS % 59.1 % (39.0-77.0); NUCLEATED RED BLOOD CELLS% 0.2 /100WBC (0.0-0.0); PLATELET COUNT 256 10^3/UL (140-415); RED BLOOD COUNT 2.94 10^6/ul (4.20-5.40); RED CELL DISTRIBUTION WIDTH 19.4 % (11.5-14.5)
[2017-09-29 10:06] LABS: WHITE BLOOD COUNT 12.6 10^3/ul (4.8-10.8)
[2017-09-29 11:25] LABS: ANION GAP 6 (8-16); BLOOD UREA NITROGEN 27 mg/dl (7-20); CALCIUM 9.3 mg/dl (8.4-10.2); CARBON DIOXIDE 35 mmol/L (21-31); CHLORIDE 103 mmol/L (97-110); CREATININE 0.52 mg/dl (0.44-1.00); GLUCOSE 99 mg/dl (70-220); SODIUM 139 mmol/L (135-144)
[2017-09-29] MEDS: METHADONE 10 MG TAB GTB (19:08)
== END 2017-09-29 19:58 | DRG 871 ==
LOC: E/R 00:30 → TEL 09-18 18:06
PROVIDERS: Internal Medicine
PROC: 02HV33Z Insertion of Infusion Device into Superior Vena Cava, Percutaneous Approach (ICD-10-PCS; principal; 2017-09-18)
DX: A41.9 Sepsis, unspecified organism (principal); L89.154 Pressure ulcer of sacral region, stage 4; G93.40 Encephalopathy, unspecified; R65.21 Severe sepsis with septic shock; N39.0 Urinary tract infection, site not specified; M86.9 Osteomyelitis, unspecified; E11.65 Type 2 diabetes mellitus with hyperglycemia; E11.69 Type 2 diabetes mellitus with other specified complication; E11.51 Type 2 diabetes mellitus with diabetic peripheral angiopathy without gangrene; I48.0 Paroxysmal atrial fibrillation; B96.5 Pseudomonas (aeruginosa) (mallei) (pseudomallei) as the cause of diseases classified elsewhere; D63.8 Anemia in other chronic diseases classified elsewhere; I10 Essential (primary) hypertension; R13.10 Dysphagia, unspecified; Z93.1 Gastrostomy status; Z16.19 Resistance to other specified beta lactam antibiotics; Z16.24 Resistance to multiple antibiotics; Z89.511 Acquired absence of right leg below knee; Z86.718 Personal history of other venous thrombosis and embolism; Z79.02 Long term (current) use of antithrombotics/antiplatelets; Z79.4 Long term (current) use of insulin; Z79.891 Long term (current) use of opiate analgesic
CPT/HCPCS: 36415; 36569; 71045; 76937; 80048; 80053; 81001; 82962; 83605; 84484; 85025; 85610; 85730; 87040; 87081; 87086; 93005; 94664; 96374; 99291-25